=== PATIENT | male | born 1940 | race Caucasian/White ===

== ENCOUNTER 2019-06-10 09:28 | Outpatient (CLI) | payer MEDICARE, SELFPAY ==
--- NOTE | 2019-06-10 10:15 | MR_ITS ---
WS: [id number] MRI CERVICAL SPINE NONCONTRAST TECHNIQUE: Sagittal T1, T2 and STIR imaging. Axial T2, gradient, and fiesta imaging. CLINICAL INFORMATION: Neck pain COMPARISON: CT March 26, 2019 FINDINGS: Straightening of the normal cervical lordosis. Moderate spondylitic changes. Cord signal is normal. D isc osteophyte complexes worse at C4-C6. Mild degenerative edema at the right C1-2 articulation. Mild pannus formation at C1-2. C2-C3: Mild disc bulging with osteophytic ridging. Mild bilateral foraminal narrowing. Moderate right facet arthropathy. C3-C4: Disc osteophytic ridging. Mild to moderate left and no significant right foraminal narrowing. Spinal canal is patent. C4-C5: Disc osteophyte complex with endplate ridging. Mild central canal stenosis. Moderate right and mild left bony foraminal narrowing. Moderate facet arthropathy. C5-C6: Disc osteophyte complex with endplate ridging. Moderate left and no significant right foramina l narrowing. Mild facet arthropathy. C6-C7: Disc osteophyte complex with endplate ridging. Small central disc osteophyte protrusion. Mild central canal stenosis. Moderate to severe left and moderate right bony foraminal narrowing. C7-T1: Disc osteophyte complex with endplate ridging. Moderate to severe left and mild right bony for aminal narrowing. Spinal canal is patent. T1-T2: Small central protrusion with mild bilateral foraminal narrowing. Visualized brain stem structures: Normal. Prevertebral soft tissues: Normal. MR/MR cervical spin wo con* [id number] IMPRESSION: 1. Straightening of the normal cervical lordosis. Cord signal is normal. 2. Mild central canal stenosis with disc osteophyte protrusions at C4-C5, C5-C 6, and C6-C7. 3. Multilevel moderate to severe bony foraminal narrowing worse at right C4-5, left C5-6, left C6-7, and left C7-T1.
--- NOTE | 2019-06-10 11:00 | XR_ITS ---
WS: [id number] CERVICAL SPINE FLEXION EXTENSION TECHNIQUE: 3 views of the cervical spine: lateral neutral, flexion and extension views. CLINICAL INFORMATION: Neck pain COMPARISON: February 02, 2019 FINDINGS: Straightening of the normal cervical lordosis. Moderate spondylitic changes. Trace anterolisthesis C2 on C3 and C3 on C4. No instability on flexion-extension. Disc space narrowing worse at C3-C4 C4-C5 C 5-C6 and C6-C7. Normal prevertebral soft tissues. Normal C1-C2 articulation. Posterior elements are normal. No other significant findings. XR/XR cervical spine fl/ex [id number] IMPRESSION: No instability on flexion-extension
== END 2019-06-10 09:29 | disposition home or self-care (01) ==
LOC: RADWPI 09:31
PROVIDERS: Family Provider Family Medicine; PCP Family Medicine; Visit Provider Licensed Practical Nurse
DX: M48.02 Spinal stenosis, cervical region (principal); M50.223 Other cervical disc displacement at C6-C7 level
CPT/HCPCS: 72040; 72141

== ENCOUNTER → 2019-07-18 14:06 | Outpatient (BNVA) | payer MEDICARE, SELFPAY | PROVIDERS: Family Provider Family Medicine; PCP Family Medicine; Referring Provider Specialist; Visit Provider Anesthesiology Pain Medicine | DX: M47.812 Spondylosis without myelopathy or radiculopathy, cervical region (principal); M43.12 Spondylolisthesis, cervical region; M48.02 Spinal stenosis, cervical region; M50.020 Cervical disc disorder with myelopathy, mid-cervical region, unspecified level | CPT/HCPCS: 99204 ==

== ENCOUNTER → 2019-10-10 09:19 | Outpatient (BNVA) | payer MEDICARE, SELFPAY | PROVIDERS: Family Provider Family Medicine; PCP Family Medicine; Visit Provider Anesthesiology Pain Medicine | DX: M47.812 Spondylosis without myelopathy or radiculopathy, cervical region (principal); M43.12 Spondylolisthesis, cervical region; M48.02 Spinal stenosis, cervical region; M50.020 Cervical disc disorder with myelopathy, mid-cervical region, unspecified level | CPT/HCPCS: 64490; 64491; 64492; 99212; 99213; J3490 ==

== ENCOUNTER → 2019-10-24 11:05 | Outpatient (BNVA) | payer MEDICARE, SELFPAY | PROVIDERS: Family Provider Family Medicine; PCP Family Medicine; Visit Provider Anesthesiology Pain Medicine | DX: M43.12 Spondylolisthesis, cervical region (principal); M47.812 Spondylosis without myelopathy or radiculopathy, cervical region; M48.02 Spinal stenosis, cervical region; M50.020 Cervical disc disorder with myelopathy, mid-cervical region, unspecified level | CPT/HCPCS: 99212; 99213 ==

== ENCOUNTER → 2019-11-17 13:03 | Outpatient (BNVA) | payer MEDICARE, SELFPAY | PROVIDERS: Family Provider Family Medicine; PCP Family Medicine; Visit Provider Anesthesiology Pain Medicine | DX: M47.812 Spondylosis without myelopathy or radiculopathy, cervical region (principal); M54.2 Cervicalgia | CPT/HCPCS: 64633; 64634; J1030 ==

== ENCOUNTER → 2019-12-04 09:22 | Outpatient (BNVA) | payer MEDICARE, SELFPAY | PROVIDERS: Family Provider Family Medicine; PCP Family Medicine; Visit Provider Anesthesiology Pain Medicine | DX: G89.29 Other chronic pain (principal); M43.12 Spondylolisthesis, cervical region; M47.812 Spondylosis without myelopathy or radiculopathy, cervical region; M48.02 Spinal stenosis, cervical region; M50.020 Cervical disc disorder with myelopathy, mid-cervical region, unspecified level; M25.562 Pain in left knee; M25.561 Pain in right knee; M19.90 Unspecified osteoarthritis, unspecified site | CPT/HCPCS: 20610; 99213; J1030; J3490 ==

== ENCOUNTER → 2021-05-18 10:52 | Outpatient (BNVA) | payer MEDICARE, SELFPAY | PROVIDERS: Family Provider Family Medicine; PCP Family Medicine; Referring Provider Orthopaedic Surgery; Visit Provider Specialist | DX: G56.03 Carpal tunnel syndrome, bilateral upper limbs (principal) | CPT/HCPCS: 95909 ==

== ENCOUNTER → 2021-07-12 15:12 | Outpatient (BNVA) | payer MEDICARE, SELFPAY | PROVIDERS: Family Provider Family Medicine; PCP Family Medicine; Visit Provider Orthopaedic Surgery | DX: G56.03 Carpal tunnel syndrome, bilateral upper limbs (principal) | CPT/HCPCS: 99213; 99214 ==

== ENCOUNTER 2021-07-28 08:09 | Day surgery (SDC) | payer MEDICARE, SELFPAY ==
[2021-07-27 16:02] VITALS: BMI 24.7
[2021-07-28] VITALS (8 sets, daily range): BP systolic 124–158; BP diastolic 77–107; PULSE 51–66; RESP 14–20; TEMP 36.3–36.8; O2SAT 92–97
--- NOTE | 2021-07-28 09:21 | P.ANESASSM_ITS ---
Pre-Anesthetic Assessment Height/Weight: Height 1.75 m Weight 76.204 kg Temp Pulse Resp BP Pulse Ox 97.7 F 66 18 141/77 93 07/28/21 08:46 07/28/21 08:46 07/28/21 08:46 07/28/21 08:46 07/28/21 08:46 Preop Diagnosis: Carpal tunnel syndrome Right Operation Date: 07/28/21 10:45 Proposed Procedures p Right carpal tunnel release:79727,G56.01(Right) - Arnel Zavala MD Familial anesthetic complications: None Was Beta Zeus taken within 24 hours: N/A Was Clonidine taken within 24 hours: N/A Last intake: > 8hrs Social No alcohol and No tobacco Exam alert, oriented x 3, clear to auscultation bilaterally and regular rate & rhythm Airway Mallampati: Class II Dentition: false ( they're glued in real good ) Pulmonary None reported CV/HEM Hypertension None reported Hepatic None reported GI None reported Metabolic None reported Musc/skel Osteoarthritis/DJD Neuropsych None reported Anesthetic Plan ASA status: 2 Anesthesia: MAC and Regional (specify below) (loan block) Risk of > 500 ml blood loss (7ml/kg in children): No Medications/Allergies Home Medications Medication Instructions Recorded Confirmed Last Taken Type losartan 100 mg tablet 100 mg PO ONCE 02/25/19 07/27/21 07/27/21 History meloxicam 15 mg tablet 15 mg PO ONCE 02/25/19 07/27/21 07/28/21 07:00 History sertraline 100 mg tablet 100 mg PO Q24H 02/25/19 07/27/21 07/28/21 07:00 History ibuprofen 200 mg tablet 200 mg PO .4-8 day PRN tab 07/18/19 07/27/21 07/13/21 History vdebhvkdvrno-ddiogshe-ddqpyg tablet 1 tab PO DAILY 07/18/19 07/27/21 07/27/21 07:00 History vitamin b12 DIRECTED 07/18/19 07/12/21 Unknown History loperamide 2 mg capsule 2 mg PO PRN 07/27/21 07/27/21 07/27/21 07:00 History promethazine 25 mg tablet 25 mg PO PRN 07/27/21 07/27/21 07/24/21 History Allergies Allergy/AdvReac Type Severity Reaction Status Date / Time codeine Allergy Unknown diaphretic Verified 07/12/21 15:28 hydromorphone [From Dilaudid] Allergy Unknown rash Verified 07/12/21 15:28 Sulfa (Sulfonamide Allergy Unknown unknown Verified 07/12/21 15:28 Antibiotics) [facility] Anesthesia Medical History (Updated 07/12/21 @ 15:45 by Arnel Zavala MD) 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
[2021-07-28] MEDS: sodium chloride 0.9% 1,000 ML 30 ML IV (09:51)
--- NOTE | 2021-07-28 12:35 | W.PM.OPSUD ---
Surgery/Procedure H&P Update DATE OF PROCEDURE: July 28, 2021 DATE H&P PERFORMED: 07/12/21 H&P UPDATE INFORMATION: I have reviewed H&P completed within last 30 days PREOP DIAGNOSIS: Carpal tunnel syndrome Right PLANNED PROCEDURE: Operation Date: 07/28/21 10:45 Proposed Procedures p Right carpal tunnel release:[id number],G56.01(Right) - Arnel Zavala MD
--- NOTE | 2021-07-28 13:22 | P.OP_ITS ---
Operative Report Date of procedure: July 28, 2021 Pre-op diagnosis: Preop Diagnosis Carpal tunnel syndrome Right Post-op diagnosis: same Post-op diagnosis: Same Procedure done: Right carpal tunnel release Pathology: none sent Surgeon: Arnel Zavala Anesthesia: Nerve Block ([place]ocks block) Estimated blood loss (mL): 2 Tourniquet time (min): 20 Findings: No masses or space-occupying lesion seen in the right carpal tunnel Condition: stable Disposition: PACU Procedure: Patient was taken to the operating room and anesthesia provided by the anesthesia service. She was prepped and draped with the arm exposed. A timeout was performed. A 3 cm long incision was made in line with the fourth ray from the distal edge of the carpal tunnel extending proximally. The subcutaneous fat and palmar fascia was divided with a scalpel blade. Under loupe magnification the ulnar neurovascular bundle was identified distally. A hemostat could be passed under the transverse carpal ligament allowing the distal 25% to be divided. A slotted guide was then passed beneath the transverse carpal ligament and the middle 50% divided. Blunt scissors were then passed over the guide freeing the proximal ligament. The tourniquet was deflated. Hemostasis provided with electrocautery. Wound edges were infiltrated with 10 cc of a half percent Marcaine solution. Skin edges were reapproximated with 3-0 Prolene. Sterile dressings were applied. The patient was taken to the recovery room in stable condition
[2021-07-28] MEDS: HYDROcodone-acetaminophen 5-325 mg Tablet 1 TAB PO (15:20)
--- NOTE | 2021-07-28 16:35 | ANE.PACU2 ---
Inpatient post-anesthesia follow up: Airway intact: Yes Vital signs: Temperature 98.2 F Pulse Rate 58 Respiratory Rate 16 Blood Pressure 142/82 Pulse Oximetry 94 Oxygen Delivery Me thod Room Air Oxygen Flow Rate Fraction of Inspir ed Oxygen Hydration adequate: Yes Nausea and vomiting: No Pain level: 1 Mental status: Baseline
== END 2021-07-28 15:30 | disposition home or self-care (01) ==
PROVIDERS: Family Provider Family Medicine; PCP Family Medicine; Visit Provider Orthopaedic Surgery
PROC: (CPT 64721; principal; 2021-07-28 10:45)
DX: G56.01 Carpal tunnel syndrome, right upper limb (principal)
CPT/HCPCS: 64721; J2704; J3490; J7030

== ENCOUNTER → 2021-08-03 08:11 | Outpatient (BNVA) | payer MEDICARE, SELFPAY | PROVIDERS: Family Provider Family Medicine; PCP Family Medicine; Visit Provider Nurse Practitioner Family | DX: Z98.890 Other specified postprocedural states (principal) | CPT/HCPCS: 99024 ==

== ENCOUNTER → 2021-08-10 12:51 | Outpatient (BNVA) | payer MEDICARE, SELFPAY | PROVIDERS: Family Provider Family Medicine; PCP Family Medicine; Visit Provider Nurse Practitioner Family | DX: Z98.890 Other specified postprocedural states (principal) | CPT/HCPCS: 99024 ==

== ENCOUNTER → 2021-08-31 12:24 | Outpatient (BNVA) | payer MEDICARE, SELFPAY | PROVIDERS: Family Provider Family Medicine; PCP Family Medicine | DX: I45.2 Bifascicular block (principal); I25.2 Old myocardial infarction; R94.31 Abnormal electrocardiogram [ECG] [EKG] | CPT/HCPCS: 93005 ==

== ENCOUNTER 2021-09-19 14:44 | Outpatient (CLI) | payer MEDICARE, SELFPAY ==
--- NOTE | 2021-09-19 14:55 | USCV_ITS ---
Gurpreet Lang Age: 80 Gender: M : 1940 Exam Date: 09/19/2021 15:19 Ordering Phys: Brittany Phoenix CLIENT SERVER DEVELOPER CLIENT SERVER DEVELOPER Technologist: JUNIOR Exam Location[place] [facility] [place] Indication: sob, cp BP: 134 / 89 HR: 66 Rhythm: Sinus Technical Quality: adequate MEASUREMENTS (Male / Female) Normal Values 2D ECHO LV Diastolic Diameter PLAX 4.3 cm 4.2 - 5.9 / 3.9 - 5.3 cm LV Systolic Diameter PLAX 2.4 cm IVS Diastolic Thickness 1.0 cm 0.6 - 1.0 / 0.6 - 0.9 cm IVS Systolic Thickness 1.4 cm LVPW Diastolic Thickness 1.2 cm 0.6 - 1.0 / 0.6 - 0.9 cm LVPW Systolic Thickness 1.1 cm LVOT Diameter 2.0 cm LV Ejection Fraction 2D Teich 76.4 % LV Ejection Fraction MOD 2C 55.7 % LV Ejection Fraction 2C AL 57.4 % LA Diameter 3.7 cm RA Width 1.8 cm RA Height 5.3 cm Aorta at Sinotubular Diameter 3.2 cm M-MODE MV E Point Septal Separation 0.4 cm DOPPLER AV Peak Velocity 91.0 cm/s LVOT Peak Velocity 95.0 cm/s AV Area Cont Eq vti 3.6 cm squared AV Area Cont Eq pk 3.3 cm squared MV Area PHT 3.6 cm squared Mitral E to A Ratio 0.5 MV E' Velocity 28.5 cm/s Mitral E to MV E' Ratio 15.5 Mitral E to LV E' Lateral Ratio 16.9 Mitral E to LV E' Septal Ratio 14.3 TR Peak Velocity 243.3 cm/s TR Peak Gradient 23.7 mmHg Right Atrial Pressure 8.0 mmHg Pulmonary Artery Systolic Pressu 31.7 mmHg PV Peak Velocity 76.0 cm/s FINDINGS Left Ventricle Left ventricle is normal in size. LV systolic function is normal with EF 55 to 60%. No regional wall motion abnormalities are seen. Grade 1 diastolic dysfunction. Right Ventricle RV is normal in size or function Right Atrium Normal in size Left Atrium Normal in size Mitral Valve Structurally normal mitral valve. Mild mitral regurgitation. Aortic Valve Aortic valve is thickened. No significant stenosis is seen. Tricuspid Valve Mild tricuspid regurgitation. Normal pulmonary artery systolic pressure. Pulmonic Valve Not well-visualized. Pericardium Normal Aorta Normal in size IVC CONCLUSIONS LV systolic function is normal with EF of 55 to 60%. Grade 1 diastolic dysfunction. Mild mitral regurgitation. Mild tricuspid regurgitation. No comparison studies are available Arron Chase MD (Electronically Signed) Final Date: 24 September 2021 13:49 S
== END 2021-09-19 14:45 | disposition home or self-care (01) ==
LOC: RAD 14:44
PROVIDERS: Visit Provider Registered Nurse
DX: R07.9 Chest pain, unspecified (principal); I10 Essential (primary) hypertension; I08.1 Rheumatic disorders of both mitral and tricuspid valves
CPT/HCPCS: 93306

== ENCOUNTER 2021-09-21 07:11 | Outpatient (CLI) | payer MEDICARE, SELFPAY ==
--- NOTE | 2021-09-21 | ECG_ITS ---
[facility] Test Date: 2021-09-21 Pat Name: Gurpreet Lang Department: Room: Gender: Male Literary Writer: : 1940 Requested By: Brittany Phoenix Order Number: [id number] Sonia MD: Thi Engel M.D. Interpretive Statements NAME OF STUDY: LEXISCAN SESTAMIBI STRESS TEST INDICATION: Chest Pain PROCEDURE: At the baseline, the blood pressure was 98/77 mmHg with a heart rate of 62 bpm. The electrocardiogram showed sinus bradycardia, indeterminate axis. Right bundle branch block. The Lexiscan was infused over a period of 20 seconds. A total of 0.4 milligrams of Lexiscan was infused. The stress phase was continued for a total of 5 minutes. Heart rate at the end of the stress phase was 68 bpm with a blood pressure 116/85 mmHg. The EKG at the peak infusion revealed sinus rhythm with no significant ST-T wave changes. The study was terminated due to protocol completion. Sestamibi was injected 20 seconds after the Lexiscan infusion. Blood pressure at the end of the recovery phase was 134/84 mmHg with a heart rate of 68 beats per minute. CONCLUSION: 1. No significant EKG changes with the LexiScan infusion. 2. No LexiScan induced chest pain or cardiac arrhythmia. 3. Normal blood pressure and heart rate response. 4. Sestamibi/sestamibi perfusion scan pending; see separate report. Electronically Signed On 09-28-2021 16:53:08 CDT by Thi Engel M.D. [id number]
[2021-09-21 08:46] VITALS: BMI 28.8
--- NOTE | 2021-09-21 08:48 | NMCV_ITS ---
NM luis daniel perf SPECT r/s* [id number] Gurpreet Lang Age: 80 Gender: M : 1940 Exam Date: 09/21/2021 08:48 Ordering Phys: Brittany Phoenix MAINTAINER CENTRAL OFFICE Technologist: DUKE Ferrara Exam Location: [facility] Indications: CHEST PAIN STRESS TEST Please see separate stress test report [facility] for full findings IMAGE PROTOCOL Rest/Stress 1 Lexiscan Day Radiopharmaceutical Dose (mCi) Administration Site Administered by Rest: Tc-99m 11.0 IV DUKE Ferrara Sestamibi Stress:Tc-99m 32.7 IV DUKE Graham Sestamibi Rest: 21-Sep-2021 60 Discovery 630 Stress: 21-Sep-2021 30 Discovery 630 0.4mg Lexiscan. Images obtained in supine and prone position. SPECT RESULTS Technical Quality: Excellent Raw Data Analysis: Normal Image Corrections: No attenuation or motion correction applied Summed Stress Score: 16 Summed Rest Score: 13 Summed Difference Score: 3 PERFUSION FINDINGS Medium sized perfusion abnormality of basal to mid inferior, basal to mid inferolateral, apical lateral wall on rest images with mild reversibility in apical anterior and apical lateral bonilla on stress images. FUNCTIONAL RESULTS (calculated via Gated SPECT) Stress Image LV EF (%): 63 Stress EDV (mL):79 TID: 0.75 Stress ESV (mL):29 FUNCTIONAL FINDINGS: The left ventricle is normal in size. Transient Ischemia Dilatation of 0.75. There is normal left ventricular systolic function. The left ventricular ejection fraction is normal with a value of 63%. There is normal left ventricular wall thickening. Abnormal septal motion. Normal end-diastolic and end-systolic volumes. IMPRESSIONS 1. Medium sized perfusion abnormality of basal to mid inferior, basal to mid inferolateral, apical lateral bonilla with mild reversibility in apical anterior and apical lateral bonilla. 2. This is suggestive of old myocardial infarction in right coronary artery/circumflex artery territory with mild kwan-infarct ischemia. 3. Overall left ventricular systolic function is normal without regional wall motion abnormalities, LVEF=63%. 4. No EKG changes with Lexiscan infusion. Refer to separate report for details. Thi Engel MD (Electronically Signed) Final Date: 28 September 2021 17:03 S
[2021-09-21] MEDS: regadenoson 0.4 Mg/5 ml Syringe IVP (09:50)
[2021-09-21 09:59] VITALS: BP 134/84; PULSE 69
== END 2021-09-21 07:12 | disposition home or self-care (01) ==
LOC: CDL 07:12
PROVIDERS: Visit Provider Registered Nurse
DX: R07.9 Chest pain, unspecified (principal)
CPT/HCPCS: 78452; 93017; A9500; J2785

== ENCOUNTER → 2021-11-01 13:17 | Outpatient (BNVA) | payer MEDICARE, SELFPAY | PROVIDERS: PCP Family Medicine; Visit Provider Internal Medicine Cardiovascular Disease | DX: R07.9 Chest pain, unspecified (principal); R94.39 Abnormal result of other cardiovascular function study; I10 Essential (primary) hypertension; M19.90 Unspecified osteoarthritis, unspecified site; Z79.891 Long term (current) use of opiate analgesic; I25.2 Old myocardial infarction | CPT/HCPCS: 99204 ==

== ENCOUNTER → 2021-12-15 15:06 | Outpatient (BNVA) | payer MEDICARE, SELFPAY | PROVIDERS: PCP Family Medicine; Visit Provider Nurse Practitioner Family | DX: M17.0 Bilateral primary osteoarthritis of knee (principal) | CPT/HCPCS: 20610; 73560; 73565; 99214; J1100; J2795; J3301 ==

== ENCOUNTER 2022-01-24 16:58 | Inpatient (IN) | payer MEDICARE, SELFPAY ==
[2022-01-24] VITALS (26 sets, daily range): BP systolic 89–149; BP diastolic 64–80; PULSE 63–96; RESP 15–28; TEMP 36.3–36.8; O2SAT 92–98; BMI 27.3
--- NOTE | 2022-01-24 17:00 | ED_ITS ---
HPI - Chest Pain General: Chief Complaint: Chest Pain Stated Complaint: Chest Pain Time Seen by Provider: 01/24/22 16:59 History of Present Illness: Mr. Lang is an 81-year-old gentleman with significant past medical history of hypertension and history of WI presenting to the emergency department due to chest pain. He reports perhaps being mildly tired this morning however no other big changes in health. He was walking when he developed moderate intensity left anterior chest pressure without significant radiation. He had associated generalized malaise, diaphoresis, nausea. He was given nitroglycerin, nitroglycerin paste, aspirin, Zofran by EMS which has improved his pain to now being mild. He has not had episodes of chest pain since his prior WI. This feels similar but more intense to prior WI. No other specific changes in health, exacerbating, or alleviating factors identified. Onset (ago): hour(s) Timing of current episode: constant and still present Prior episodes: No Onset: during exertion Pain location: substernal Severity: moderate Quality: heaviness Relieving factors: nothing Exacerbating factors: exertion Associated symptoms: Reports diaphoresis, nausea and other Review of Systems General: Reports: 10 or more systems reviewed and unremarkable except in HPI and below Const: Reports: diaphoresis GI: Reports: nausea PFSH ED PFSH: Medical History Abnormal nuclear stress test CAD (coronary artery disease) Cervical disc disorder with myelopathy of mid-cervical region History of WI (myocardial infarction) HTN (hypertension) FPC (current) use of opiate analgesic Pain management contract signed 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 Surgical History History of appendectomy (~1974) History of cholecystectomy (~1979) History of rotator cuff surgery (~1996) Family History Father CAD (coronary artery disease) Myocardial infarction Other Hypertension Social History Smoking and tobacco status: never smoked Alcohol intake: never Household members: spouse Marital status: Current occupational status: retired History of recent travel: No Physical Exam Const: COMMON NORMALS: alert GENERAL APPEARANCE: cooperative and well developed HENMT: COMMON NORMALS: normocephalic and atraumatic HEAD & SCALP: normocephalic and atraumatic Eye: COMMON NORMALS: conjunctivae normal CONJUNCTIVA: Yes conjunctivae normal SCLERA: sclerae normal Neck/C-Spine: COMMON NORMALS: supple GENERAL: Yes trachea midline Resp: COMMON NORMALS: clear to auscultation bilaterally EFFORT & INSPECTION: Yes able to speak in complete sentences AUSCULTATION: clear to auscultation bilaterally Cardio: COMMON NORMALS: regular rate and regular rhythm RATE: regular rate RHYTHM: regular rhythm GI: COMMON NORMALS: Soft to palpation PALPATION: Yes Soft to palpation and No Tenderness to palpation present (GI) Extremity: GENERAL: Yes normal exam except as noted and No edema Neuro: COMMON NORMALS: moves all extremities SENSORIUM/ORIENTATION: Yes alert and No Orientation impaired Psych: COMMON NORMALS: mental status grossly normal and Normal thought process present THOUGHT PROCESS: Normal thought process present Course Vital Signs: Vital signs: Vital Signs Temperature 97.7 F 01/26/22 07:24 Pulse Rate 64 01/26/22 11:50 Respiratory Rate 22 H 01/26/22 11:50 Blood Pressure 125/75 01/26/22 11:50 Pulse Oximetry 91 01/26/22 11:50 Oxygen Delivery Me thod 01/26/22 08:00 MDM - Chest Pain Medical Decision Making 81-year-old male presenting with typical cardiac chest pain episode. Symptoms have improved upon arrival, end BOARDINGHOUSE KEEPER aspirin and nitro paste. EKG shows sinus rhythm with nonspecific ST segment abnormalities, bundle-branch block, no STEMI. Labs with no leukocytosis, normal hemoglobin. Metabolic panel with no acute electrolyte arrangement. 2-hour delta troponin is elevated. Rapid viral study negative. Chest x-ray with no lobar consolidation or pneumothorax. Most likely etiology of patient's symptoms is an NSTEMI The results of ED evaluation were discussed with the patient including plan for admission due to requirement for level of care not available if discharged to prevent significant worsening/deterioration. Patient agreeable with plan. Discussed with hospitalist service who was agreeable to admit patient. Medical Records I reviewed the patient's medical records. Lab Data I reviewed the patient's lab results. 01/26/22 08:14 01/26/22 08:14 Radiology Impressions Chest X-Ray 01/24/22 17:13 IMPRESSION: Left lower lobe atelectasis. Laboratory Results WBC 8.9 10^3/uL (4.0-10.0) 01/24/22 17:35 RBC 4.32 10^6/uL (4.1-5.3) 01/24/22 17:35 Hgb 14.1 g/dL (11.7-16.6) 01/24/22 17:35 Hct 41.8 % (42.0-52.0) L 01/24/22 17:35 MCV 96.8 fl (80-94) H 01/24/22 17:35 MCH 32.6 pg (28.0-34.0) 01/24/22 17: MCHC 33.7 g/dL (30.0-36.0) 01/24/22 17: RDW 12.7 % (12.1-15.1) 01/24/22 17:35 Plt Count 148 10^3/cmm (130-400) 01/24/22 17:35 MPV 9.7 fL (7.4-10.4) 01/24/22 17:35 Neut % (Auto) 83.9 % 01/24/22 17:35 Lymph % (Auto) 9.1 % 01/24/22 17:35 Roane % (Auto) 5.8 % 01/24/22 17:35 Eos % (Auto) 0.4 % 01/24/22 17:35 Baso % (Auto) 0.4 % 01/24/22 17:35 Neut # (Auto) 7.45 10^3/uL (1.8-7.7) 01/24/22 17:35 Lymph # (Auto) 0.8 10^3/uL (0.8-4.8) 01/24/22 17:35 [place]ane # (Auto) 0.5 10^3/uL (0.2-0.9) 01/24/22 17:35 Eos # (Auto) 0.0 10^3/uL (0.0-0.8) 01/24/22 17:35 Baso # (Auto) 0.0 10^3/uL (0.0-0.1) 01/24/22 17:35 Nucleated RBC % (auto) 0 % 01/24/22 17:35 Nucleated RBCs # 0.0 /100WBC 01/24/22 17:35 PT 15.20 SECONDS (12.1-14.9) H 01/24/22 17:35 INR 1.17 (0.8-1.2) 01/24/22 17:35 APTT 25.8 SECONDS (23.9-36.7) 01/24/22 17:35 Sodium 141 mmol/L (136-145) 01/24/22 17:35 Potassium 4.1 mmol/L (3.5-5.1) 01/24/22 17:35 Chloride 108 mmol/L (98-107) H 01/24/22 17:35 Carbon Dioxide 22 mmol/L (22-29) 01/24/22 17:35 Anion Gap 15.1 (5-19) 01/24/22 17:35 BUN 20 mg/dL (8-23) 01/24/22 17:35 Creatinine 1.2 mg/dL (0.7-1.2) 01/24/22 17:35 GFR Calculation Not Reportable 01/24/22 17:35 Glucose 235 mg/dL (65-115) H 01/24/22 17:35 Estimat Average Glucose 143 01/24/22 19:35 Hemoglobin A1c 6.6 % (4.0-6.0) H 01/24/22 19:35 Calculated Osmolality 302 mOsm/kg (285-295) H 01/24/22 17:35 Calcium 8.4 mg/dL (8.5-10.5) L 01/24/22 17:35 Total Bilirubin 0.6 mg/dL (0.15-1.2) 01/24/22 17:35 AST 22 U/L (0-40) 01/24/22 17:35 ALT 17 U/L (0-41) 01/24/22 17:35 Alkaline Phosphatase 72 U/L (40-130) 01/24/22 17:35 Troponin T Baseline 15 ng/L (0-15) 01/24/22 17:35 Troponin T 120 Minute 27.56 ng/L (0-15) H 01/24/22 19:35 Delta Troponin T 12.56 ABS# (0-10) H* 01/24/22 19:35 Troponin T Hi Sens 6Hr 35.17 ng/L (0-15) H 01/24/22 21:06 Troponin T Hi Sens 6Hr Delta 20.17 ng/L (0-12) H* 01/24/22 21:06 NT-Pro-B Natriuret Pep 387 pg/mL (0-450) 01/24/22 17:35 Total Protein 6.2 g/dL (6.6-8.7) L 01/24/22 17:35 Albumin 4.0 g/dL (3.5-5.2) 01/24/22 17:35 Globulin 2.2 g/dL (1.3-4.6) 01/24/22 17:35 Lipase 20 U/L (13-60) 01/24/22 17:35 Vitamin B12 > 2000 pg/mL (232-1245) H 01/24/22 19:35 TSH 2.24 uIU/mL (0.27-4.20) 01/24/22 19:35 Influenza Type A Ag negative (Negative) 01/24/22 17:54 Influenza Type B Ag negative (Negative) 01/24/22 17:54 SARS-CoV-2 Ag (Rapid) Negative (Negative) 01/24/22 17:54 Discharge Plan Discharge Patient Disposition: Admitted As Inpatient Admit Provider: Shonna Wilder Clinical Impression: Chest pain, Acute non-ST elevation myocardial infarction (NSTEMI) Condition: Stable Discharge Diet: Usual diet Discharge Activity: Resume usual activity Coding Level of Care Code ED Finished Garment Inspector for Abdi Dawson
--- NOTE | 2022-01-24 17:08 | ECG_ITS ---
[facility] Test Date: 2022-01-24 Pat Name: Gurpreet Lang Department: Room: Gender: Male Parts Runner: : 1940 Requested By: Noah Ernst Order Number: [id number] Sonia MD: Saloni Hoyt M.D. Measurements Intervals [place] Rate: 98 P: 48 MD: 160 QRS: 263 QRSD: 142 T: 17 QT: 373 QTc: 476 Interpretive Statements SINUS RHYTHM INDETERMINATE AXIS RIGHT BUNDLE BRANCH BLOCK [120+ ms QRS DURATION, UPRIGHT V1, 40+ ms S IN I/aVL/V4/V5/V6] No previous ECG available for comparison Electronically Signed On 01-25-2022 0:04:52 POWERHOUSE OPERATOR by Saloni Hoyt M.D. [id number]
--- NOTE | 2022-01-24 17:13 | XRR_ITS ---
PROCEDURE INFORMATION: Exam: XR Chest Exam date and time: 01/24/2022 5:41 PM Age: 81 years old Clinical indication: Chest wall pain; Additional info: Cp TECHNIQUE: Imaging protocol: Radiologic exam of the chest. Views: 1 view. COMPARISON: MR cervical spin wo con* [id number] 06/10/2019 9:58 AM FINDINGS: Lungs: Left lower lobe atelectasis. Pleural spaces: Unremarkable. No pleural effusion. No pneumothorax. Heart/Mediastinum: Unremarkable. No cardiomegaly. Bones/joints: Unremarkable. XR/XR chest 1V portable [id number] IMPRESSION: Left lower lobe atelectasis.
[2022-01-24 17:47] LABS: Basophils % 0.4 %; Eosinophils % 0.4 %; Hematocrit 41.8 % (42.0-52.0); Hemoglobin 14.1 g/dL (11.7-16.6); Lymphocytes # 0.8 10^3/uL (0.8-4.8); Lymphocytes % 9.1 %; Mean Corpuscular HGB Conc 33.7 g/dL (30.0-36.0); Mean Corpuscular Hemoglobin 32.6 pg (28.0-34.0); Mean Corpuscular Volume 96.8 fl (80-94); Mean Platelet Volume 9.7 fL (7.4-10.4); Monocytes # 0.5 10^3/uL (0.2-0.9); Monocytes % 5.8 %; Neutrophils # 7.45 10^3/uL (1.8-7.7); Neutrophils % 83.9 %; Nucleated Red Blood Cells % 0 %; Platelet Count 148 10^3/cmm (130-400); Red Blood Count 4.32 10^6/uL (4.1-5.3); Red Cell Distribution Width 12.7 % (12.1-15.1); White Blood Count 8.9 10^3/uL (4.0-10.0)
[2022-01-24 18:22] LABS: INR 1.17 (0.8-1.2); Partial Thromboplastin Time 25.8 SECONDS (23.9-36.7)
[2022-01-24 18:24] LABS: Influenza A by IFA negative (Negative); Influenza B by IFA negative (Negative)
[2022-01-24 18:28] LABS: Troponin(5th) Baseline 15 ng/L (0-15)
[2022-01-24 18:37] LABS: Alanine Aminotransferase 17 U/L (0-41); Alkaline Phosphatase 72 U/L (40-130); Anion Gap 15.1 (5-19); Aspartate Amino Transferase 22 U/L (0-40); Blood Urea Nitrogen 20 mg/dL (8-23); Calcium 8.4 mg/dL (8.5-10.5); Carbon Dioxide 22 mmol/L (22-29); Chloride 108 mmol/L (98-107); Creatinine Clr Calc Pharmacy 51.1797; Globulin 2.2 g/dL (1.3-4.6); Glucose 235 mg/dL (65-115); Lipase 20 U/L (13-60); NT Pro B Type Natriuretic Pept 387 pg/mL (0-450); Osmolality Calculated 302 mOsm/kg (285-295); Potassium 4.1 mmol/L (3.5-5.1); Sodium 141 mmol/L (136-145); Total Bilirubin 0.6 mg/dL (0.15-1.2); Total Protein 6.2 g/dL (6.6-8.7)
[2022-01-24 19:00] LABS: SARS Covid-2 Antigen Negative (Negative)
--- NOTE | 2022-01-24 19:13 | ECG_ITS ---
[facility] Test Date: 2022-01-24 Pat Name: Gurpreet Lang Department: Room: Gender: Male Newspaper Copy Editor: : 1940 Requested By: Noah Ernst Order Number: [id number] Sonia MD: Saloni oHyt M.D. Measurements Intervals [place] Rate: 92 P: 51 NC: 169 QRS: 242 QRSD: 145 T: 0 QT: 376 QTc: 466 Interpretive Statements SINUS RHYTHM RIGHT AXIS DEVIATION [QRS AXIS > 100] RIGHT BUNDLE BRANCH BLOCK [120+ ms QRS DURATION, UPRIGHT V1, 40+ ms S IN I/aVL/V4/V5/V6] PROBABLE SEPTAL MYOCARDIAL INFARCTION , PROBABLY OLD [35 ms Q WAVE IN V1/V2] Compared to ECG 01/24/2022 17:08:41 Right-axis deviation now present Myocardial infarct finding now present Indeterminate axis no longer present Electronically Signed On 01-25-2022 18:20:02 HEALTH INSPECTOR by Saloni Hoyt M.D. [id number]
[2022-01-24 20:06] LABS: Troponin 5 2HR 27.56 ng/L (0-15)
[2022-01-24 20:09] LABS: Troponin 5 2HR Delta 12.56 ABS# (0-10)
[2022-01-24] MEDS: enoxaparin 80 mg/0.8 mL Syringe SUBCUT (20:44)
[2022-01-24] MEDS: sodium chloride 0.9% 500 ML 999 ML IV (20:54)
[2022-01-24] MEDS: clopidogrel 300 mg Tablet PO (21:28)
[2022-01-24 21:31] LABS: Troponin 5 6HR 35.17 ng/L (0-15)
[2022-01-24 21:33] LABS: Troponin 5 6HR Delta 20.17 ng/L (0-12)
--- NOTE | 2022-01-24 21:35 | P.HP_ITS ---
Providers/Chief Complaint Primary Care Provider: Augustina Lopez DO Chief Complaint: Chest Pain History of Present Illness Gurpreet Lang is a 81 year old male presents today with chief complaint of chest pain. Patient is stating that today he drove his to her doctor's appointment and when he came home he wanted to rest a bit at that point he started noticing profuse sweating and chest discomfort. He is describing his chest discomfort as stabbing pain which is nonradiating it was associated with diaphoresis and nausea. This pain was steady, did not completely resolve until he was treated in the ER. His symptoms started around 3 PM. Patient follows up with Dr. Moss, had a stress test done in September, he was being managed medically for his slightly abnormal cardiac stress test, echo showed EF 55 to 60% grade 1 diastolic dysfunction, please note his stress test showed medium sized perfusion abnormality basal to mid inferior basal to mid inferior lateral with reversibility and apical lateral bonilla. In the ER he has been diagnosed with NSTEMI, he has been started on ACS protocol at the time of my evaluation no active chest pain he is laying flat, supine no active discomfort He has been giving therapeutic dose of Plavix along with Lovenox and received a small bolus of LR 500 mL Review of Systems Const: Denies: fever(s) Eyes: Denies: change in vision ENMT: Denies: throat pain Card: Reports: chest pain Resp: Reports: dyspnea GI: Reports: nausea : Denies: flank pain Musc: Denies: neck pain Skin/Breast: Denies: rash Neuro: Denies: headache(s) Psych: Reports: anxiety Endo: Denies: polyuria Alexei/Lymph: Denies: easy bruising All/Imm: Denies: urticaria Medications/Allergies Home Medications Medication Instructions Recorded Confirmed Last Taken Type ibuprofen 200 mg tablet 200 mg PO .4-8 day PRN Pain, Mild 07/18/19 01/24/22 07/13/21 History kuzxblipfmgc-qyshyoqa-rwpstb tablet 1 tab PO DAILY 07/18/19 01/24/22 01/24/22 History loperamide 2 mg capsule 2 mg PO PRN 07/27/21 01/24/22 01/24/22 History promethazine 25 mg tablet 25 mg PO PRN 07/27/21 01/24/22 07/24/21 History amlodipine 5 mg tablet 5 mg PO DAILY #90 tabs 11/01/21 01/24/22 01/24/22 Rx aspirin 325 mg tablet 325 mg PO DAILY 11/01/21 01/24/22 01/24/22 History hydrocodone 5 mg-acetaminophen 325 1 tab PO Q4H PRN Pain 11/01/21 01/24/22 Unknown History mg tablet losartan 50 mg tablet 50 mg PO DAILY #90 tabs 11/01/21 01/24/22 01/24/22 Rx meloxicam 15 mg tablet 15 mg PO DAILY 11/01/21 01/24/22 01/24/22 History pravastatin 20 mg tablet 20 mg PO DAILY #90 tabs 11/01/21 01/24/22 01/23/22 Rx sertraline 100 mg tablet 100 mg PO DAILY 11/01/21 01/24/22 01/23/22 History cyanocobalamin (vitamin B-12) 250 250 mcg PO DAILY 01/24/22 01/24/22 01/24/22 History mcg tablet (Vitamin B-12) levothyroxine 25 mcg tablet 25 mcg PO DAILY 01/24/22 01/24/22 01/24/22 History Allergies Allergy/AdvReac Type Severity Reaction Status Date / Time codeine Allergy Unknown diaphretic Verified 12/15/21 15:02 hydromorphone [From Dilaudid] Allergy Unknown rash Verified 12/15/21 15:02 Sulfa (Sulfonamide Allergy Unknown unknown Verified 12/15/21 15:02 Antibiotics) PFSH Acute PFSH: Medical History Abnormal nuclear stress test Cervical disc disorder with myelopathy of mid-cervical region History of OR (myocardial infarction) HTN (hypertension) tank terminal gauger (current) use of opiate analgesic Pain management contract signed 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 Surgical History History of appendectomy (~1974) History of cholecystectomy (~1979) History of rotator cuff surgery (~1996) Family History Father CAD (coronary artery disease) Myocardial infarction Other Hypertension Social History Smoking and tobacco status: never smoked Alcohol intake: never Household members: spouse Marital status: Current occupational status: retired History of recent travel: No Vitals/I&O/Wt Last Vital Signs Temp 98.2 F 01/24/22 16:59 Pulse 93 01/24/22 21:04 Resp 18 01/24/22 21:04 BP 89/66 01/24/22 21:04 Pulse Ox 94 01/24/22 21:04 O2 Del Method 01/24/22 16:59 Weight last 48 hrs Weight 81.647 kg Physical Exam Narrative: Patient is awake and alert Supine Akathisia Hemodynamically stable Clinically euvolemic S1, S2 Currently on room air No active chest pain Nonfocal neuro exam No skin ulcers Appropriate mood and affect Appears stated age Data 01/24/22 17:35 01/24/22 17:35 A&P Assessment and plan (1) Acute non-ST elevation myocardial infarction (NSTEMI): (2) HTN (hypertension): (3) Abnormal nuclear stress test: (4) Akathisia: Plan NSTEMI This year had abnormal stress test as well Most likely he will need a coronary angiogram Dr. Diaz has been consulted Delta troponin noted No active chest pain Start ACS protocol Plavix and Lovenox dose has been administered continue aspirin, atorvastatin and GAYE inhibitor Repeat echo Hypertension: Continued evidence of regimen Continue thyroxine for history of hypothyroidism For shortness of breath I would use DuoNeb for as needed use Patient is DNR/DNI goals of care discussed with the patient We will keep him n.p.o. after midnight Attestations Medical Necessity Statement*: Anticipating more than 2 midnights for management of NSTEMI Time Spent in Patient Care: 40 Coding Level of Care Code Acute Manager Transportation Planning for Abdi Fwsanthosh Diagnoses Acute non-ST elevation myocardial infarction (NSTEMI) I21.4 HTN (hypertension) I10 Abnormal nuclear stress test R94.39 Akathisia G25.71
--- NOTE | 2022-01-24 22:04 | PC.NURSE ---
report given to mike
--- NOTE | 2022-01-24 22:13 | USCV_ITS ---
Gurpreet Lang Age: 81 Gender: M : 1940 Exam Date: 01/24/2022 22:41 Ordering Phys: Shonna Wilder MD Technologist: MARILYNN Exam Location: [facility] [place] Indication: NSTEMI, CP, HTN, prior CT, prior echo 09/19/21 BP: 128 / 78 HR: 69 Rhythm: Sinus Technical Quality: Adequate MEASUREMENTS (Male / Female) Normal Values 2D ECHO LV Diastolic Diameter PLAX 4.3 cm 4.2 - 5.9 / 3.9 - 5.3 cm LV Systolic Diameter PLAX 2.9 cm IVS Diastolic Thickness 1.7 cm 0.6 - 1.0 / 0.6 - 0.9 cm IVS Systolic Thickness 2.0 cm LVPW Diastolic Thickness 0.9 cm 0.6 - 1.0 / 0.6 - 0.9 cm LVPW Systolic Thickness 1.0 cm LVOT Diameter 2.0 cm LV Ejection Fraction 2D Teich 60.4 % LV Ejection Fraction MOD 2C 58.8 % LV Ejection Fraction 2C AL 60.2 % LA Diameter 3.8 cm LA Width 3.5 cm LA Height 5.5 cm RA Width 2.2 cm RA Height 4.9 cm Aorta at Sinotubular Diameter 3.4 cm IVC Diameter 1.3 cm M-MODE Aortic Annulus Diameter 3.8 cm LA Ao Ratio MM 0.9 MV E Point Septal Separation 0.4 cm DOPPLER AV Peak Velocity 123.0 cm/s LVOT Peak Velocity 113.0 cm/s AV Area Cont Eq vti 2.5 cm squared AV Area Cont Eq pk 2.9 cm squared MV Peak Velocity 125.0 cm/s MV Area PHT 4.1 cm squared Mitral E to A Ratio 0.7 MV E' Velocity 41.5 cm/s Mitral E to MV E' Ratio 11.6 Mitral E to LV E' Lateral Ratio 9.5 Mitral E to LV E' Septal Ratio 15.1 TR Peak Velocity 261.0 cm/s TR Peak Gradient 27.2 mmHg TV Peak E Velocity 50.0 cm/s Right Atrial Pressure 5.0 mmHg Pulmonary Artery Systolic Pressu 32.2 mmHg PV Peak Velocity 98.0 cm/s RV Acceleration Time 0.1 s RV Ejection Time 0.3 s RV AcT/ET 0.3 FINDINGS Left Ventricle Normal LV size ejection fraction 60%. Mild hypokinesis of the basal to mid inferolateral segment.Grade I/IV diastolic dysfunction (abnormal relaxation filling pattern), normal to mildly elevated filling pressures. Mild left ventricular hypertrophy. Right Ventricle The right ventricle is normal in size and function. Right Atrium The right atrium is normal in size. Left Atrium The left atrium is normal in size. Mitral Valve Thickened mitral valve. Grade 1 bileaflet prolapse.mild- moderate mitral valve regurgitation. Aortic Valve Thickened aortic valve. Tricuspid Valve Mild tricuspid valve regurgitation. Pulmonic Valve Trace pulmonary valve regurgitation. Pericardium Normal pericardium without effusion. Aorta Normal ascending aorta dimension. IVC Normal inferior vena cava. CONCLUSIONS Normal LV size ejection fraction 60%. Wall motion abnormality as mentioned above Grade I/IV diastolic dysfunction (abnormal relaxation filling pattern), normal to mildly elevated filling pressures. Mild left ventricular hypertrophy. Minimally thickened aortic and mitral valves. 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 Mild to moderate mitral regurgitationMild tricuspid valve regurgitation. There is no pericardial effusion. There are no intracardiac masses. Estimated pulmonary artery peak systolic pressure 33 mm of Hg. Compared to the study from 09/19/2021, there may not be a significant change Dr Saloni Hoyt MD [facility] (Electronically Signed) Final Date: 25 January 2022 13:56 S
--- NOTE | 2022-01-24 22:38 | P.CONIM_ITS ---
Providers/Reason For Consult Consulting Physician/Specialty*: ALPHONSO Hoyt MD/cardiology Reason for Consult*: Patient with chest pain and elevated troponin T Requesting Physician: Dr. Wilder Attending Physician: Shonna Wilder MD Primary Care Provider: Augustina Lopez DO History of Present Illness History of Present Illness Gurpreet Lang is a 81 year old male with a history of hypertension,? Dyslipidemia and abnormal stress test, he is presenting with complaints of a prolonged episode of chest pain. He was found to have an elevated troponin T. Cardiology consult is requested for further cardiac evaluation recommendations. This patient apparently has been in his baseline state of health up until 3:00 this afternoon when he started having chest pain. The pain was in the mid substernal region, associated with some shortness of breath, nausea and sweating. It was precipitated with exertion(walking), 5/10 in intensity. It may have lasted for 15 minutes or so. His called the ambulance at that point. In the ambulance he was given 3 of 4 sublingual nitroglycerin spray. He also was given Zofran for nausea. By the time he came to the emergency room, the intensity of the pain was 2/10. At the time of my examination, patient is pain-free. He had a troponin delta of 12 at 2 hours. Patient had a Myocardial perfusion imaging September of this year. He was found to have an area of mild ischemia in the apical anterior and anterolateral regions. The plan was to optimize medical treatment and to consider cardiac catheterization, if he has recurrence of chest pain. Apparently this is the first episode of chest pain since the stress test. Patient is known to have high blood pressure. He was recently started on lipid- lowering agent, following the abnormal stress test. His father had a myocardial infarction in his 70s. He denies any history of smoking abuse or any other substance abuse. Is known to have irritable bowel syndrome, restless leg and cervical myelopathy Review of Systems Narrative: CONSTITUTIONAL: No fever or chills. EYES: No blurring of vision or other visual disturbances lately. ENT: No hoarseness of voice, auditory disturbances or sore throat. CARDIOVASCULAR: As mentioned above. RESPIRATORY: No significant cough. GASTROINTESTINAL: Irritable bowel syndrome as mentioned above GENITOURINARY: No dysuria or hematuria. INTEGUMENTARY: No skin rashes or history of skin cancer. NEURO: Recent radiofrequency ablation for cervical myelopathy PSYCHIATRIC: No history of psychosis or major depression. HEMATOLOGIC: No bleeding disorders or significant anemia. ENDOCRINE: No history of polyuria or polydipsia. MUSCULOSKELETAL: No recent joint pain or swelling. ALLERGY/IMMUNOLOGY: As mentioned above. Medications/Allergies Home Medications Medication Instructions Recorded Confirmed Last Taken Type ibuprofen 200 mg tablet 200 mg PO .4-8 day PRN Pain, Mild 07/18/19 01/24/22 07/13/21 History stlhjdpzvicj-ojsirmlu-etvrrt tablet 1 tab PO DAILY 07/18/19 01/24/22 01/24/22 History loperamide 2 mg capsule 2 mg PO PRN 07/27/21 01/24/22 01/24/22 History promethazine 25 mg tablet 25 mg PO PRN 07/27/21 01/24/22 07/24/21 History amlodipine 5 mg tablet 5 mg PO DAILY #90 tabs 11/01/21 01/24/22 01/24/22 Rx aspirin 325 mg tablet 325 mg PO DAILY 11/01/21 01/24/22 01/24/22 History hydrocodone 5 mg-acetaminophen 325 1 tab PO Q4H PRN Pain 11/01/21 01/24/22 Unknown History mg tablet losartan 50 mg tablet 50 mg PO DAILY #90 tabs 11/01/21 01/24/22 01/24/22 Rx meloxicam 15 mg tablet 15 mg PO DAILY 11/01/21 01/24/22 01/24/22 History pravastatin 20 mg tablet 20 mg PO DAILY #90 tabs 11/01/21 01/24/22 01/23/22 Rx sertraline 100 mg tablet 100 mg PO DAILY 11/01/21 01/24/22 01/23/22 History cyanocobalamin (vitamin B-12) 250 250 mcg PO DAILY 01/24/22 01/24/22 01/24/22 History mcg tablet (Vitamin B-12) levothyroxine 25 mcg tablet 25 mcg PO DAILY 01/24/22 01/24/22 01/24/22 History Allergies Allergy/AdvReac Type Severity Reaction Status Date / Time codeine Allergy Unknown diaphretic Verified 12/15/21 15:02 hydromorphone [From Dilaudid] Allergy Unknown rash Verified 12/15/21 15:02 Sulfa (Sulfonamide Allergy Unknown unknown Verified 12/15/21 15:02 Antibiotics) PFSH Acute PFSH: Medical History Abnormal nuclear stress test Cervical disc disorder with myelopathy of mid-cervical region History of SD (myocardial infarction) HTN (hypertension) nursing home (current) use of opiate analgesic Pain management contract signed 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 Surgical History History of appendectomy (~1974) History of cholecystectomy (~1979) History of rotator cuff surgery (~1996) Family History Father CAD (coronary artery disease) Myocardial infarction Other Hypertension Social History Smoking and tobacco status: never smoked Alcohol intake: never Household members: spouse Marital status: Current occupational status: retired History of recent travel: No Vitals/I&O/Wt Last Vital Signs Temp 98.2 F 01/24/22 16:59 Pulse 93 01/24/22 21:04 Resp 18 01/24/22 21:04 BP 89/66 01/24/22 21:04 Pulse Ox 94 01/24/22 21:04 O2 Del Method 01/24/22 22:19 Weight last 48 hrs Weight 180 lb Physical Exam Narrative: GENERAL: The patient is alert and oriented times three. Not in any acute distress. HEENT: No significant pallor, icterus or lymphadenopathy.Oral cavity: There are no mucous membrane lesions. NECK: Trachea appears to be central. No masses noted. No JVD or thyromegaly appreciated. RESPIRATORY: Chest is symmetrical. No intercostals muscle retraction or any accessory muscle activation. There is no chest wall tenderness. Breath sounds are heard bilaterally. No rales or rhonchi heard. No evidence of any consolidation. BREASTS: Deferred. HEART: The heart sounds are normal. No S3 , S4 present. Short systolic murmur in the lower sternal border. No diastolic murmurs. No pericardial rub ABDOMEN: No vessel pulsations or distention. No tenderness. No organomegaly appreciated. Bowel sounds are normally heard. : Deferred. RECTAL: Deferred. LYMPHATIC: No lymphadenopathy noted in the neck. EXTREMITIES: No edema or cyanosis. No clubbing. MUSCULOSKELETAL: No acute joint deformities or swelling SKIN: There are no significant rashes or ecchymosis NEUROPSYCHIATRIC: The patient is alert and oriented x3. Appears to be in a good mood. No tremors or rigidity noted. Data 01/24/22 17:35 01/24/22 17:35 Micro: Laboratory Last Values WBC 8.9 10^3/uL (4.0-10.0) 01/24/22 17:35 RBC 4.32 10^6/uL (4.1-5.3) 01/24/22 17:35 Hgb 14.1 g/dL (11.7-16.6) 01/24/22 17:35 Hct 41.8 % (42.0-52.0) L 01/24/22 17:35 MCV 96.8 fl (80-94) H 01/24/22 17:35 MCH 32.6 pg (28.0-34.0) 01/24/22 17:35 MCHC 33.7 g/dL (30.0-36.0) 01/24/22 17:35 RDW 12.7 % (12.1-15.1) 01/24/22 17:35 Plt Count 148 10^3/cmm (130-400) 01/24/22 17:35 MPV 9.7 fL (7.4-10.4) 01/24/22 17:35 Neut % (Auto) 83.9 % 01/24/22 17:35 Lymph % (Auto) 9.1 % 01/24/22 17:35 [place] % (Auto) 5.8 % 01/24/22 17:35 Eos % (Auto) 0.4 % 01/24/22 17:35 Baso % (Auto) 0.4 % 01/24/22 17:35 Neut # (Auto) 7.45 10^3/uL (1.8-7.7) 01/24/22 17:35 Lymph # (Auto) 0.8 10^3/uL (0.8-4.8) 01/24/22 17:35 [place] # (Auto) 0.5 10^3/uL (0.2-0.9) 01/24/22 17:35 Eos # (Auto) 0.0 10^3/uL (0.0-0.8) 01/24/22 17:35 Baso # (Auto) 0.0 10^3/uL (0.0-0.1) 01/24/22 17:35 Nucleated RBC % (auto) 0 % 01/24/22 17:35 Nucleated RBCs # 0.0 /100WBC 01/24/22 17:35 PT 15.20 SECONDS (12.1-14.9) H 01/24/22 17:35 INR 1.17 (0.8-1.2) 01/24/22 17:35 APTT 25.8 SECONDS (23.9-36.7) 01/24/22 17:35 Sodium 141 mmol/L (136-145) 01/24/22 17:35 Potassium 4.1 mmol/L (3.5-5.1) 01/24/22 17:35 Chloride 108 mmol/L (98-107) H 01/24/22 17:35 Carbon Dioxide 22 mmol/L (22-29) 01/24/22 17:35 Anion Gap 15.1 (5-19) 01/24/22 17:35 BUN 20 mg/dL (8-23) 01/24/22 17:35 Creatinine 1.2 mg/dL (0.7-1.2) 01/24/22 17:35 GFR Calculation Not Reportable 01/24/22 17:35 Glucose 235 mg/dL (65-115) H 01/24/22 17:35 Calculated Osmolality 302 mOsm/kg (285-295) H 01/24/22 17:35 Calcium 8.4 mg/dL (8.5-10.5) L 01/24/22 17:35 Total Bilirubin 0.6 mg/dL (0.15-1.2) 01/24/22 17:35 AST 22 U/L (0-40) 01/24/22 17:35 ALT 17 U/L (0-41) 01/24/22 17:35 Alkaline Phosphatase 72 U/L (40-130) 01/24/22 17:35 Troponin T Baseline 15 ng/L (0-15) 01/24/22 17:35 Troponin T 120 Minute 27.56 ng/L (0-15) H 01/24/22 19:35 Delta Troponin T 12.56 ABS# (0-10) H* 01/24/22 19:35 Troponin T Hi Sens 6Hr 35.17 ng/L (0-15) H 01/24/22 21:06 Troponin T Hi Sens 6Hr Delta 20.17 ng/L (0-12) H* 01/24/22 21:06 NT-Pro-B Natriuret Pep 387 pg/mL (0-450) 01/24/22 17:35 Total Protein 6.2 g/dL (6.6-8.7) L 01/24/22 17:35 Albumin 4.0 g/dL (3.5-5.2) 01/24/22 17:35 Globulin 2.2 g/dL (1.3-4.6) 01/24/22 17:35 Lipase 20 U/L (13-60) 01/24/22 17:35 Influenza Type A Ag negative (Negative) 01/24/22 17:54 Influenza Type B Ag negative (Negative) 01/24/22 17:54 SARS-CoV-2 Ag (Rapid) Negative (Negative) 01/24/22 17:54 EKG 1: My Interpretation: The EKG showed a sinus rhythm with right bundle branch block pattern. Possible old inferior wall SD. Right axis deviation EKG computer-generated impression: Chest X-Ray 01/24/22 17:13 IMPRESSION: Left lower lobe atelectasis. Other data: Bedside echocardiogram today revealed moderate hypokinesia of the basal inferolateral segment. Normal LV ejection fraction Sestamibi stress test done on 09/21/2021-reported as 1. No significant EKG changes with the LexiScan infusion. 2. No LexiScan induced chest pain or cardiac arrhythmia. 3. Normal blood pressure and heart rate response. 4. Sestamibi/sestamibi perfusion scan pending; see separate report. Electronically Signed On 09-28-2021 16:53:08 CDT by Thi Engel M.D. Myocardial perfusion imaging done on 09/21/2021-reported as ?1. Medium sized perfusion abnormality of basal to mid inferior, basal to mid ?inferolateral, apical lateral bonilla with mild reversibility in apical anterior?and apical lateral bonilla. ?2. This is suggestive of old myocardial infarction in right coronary?artery/circumflex artery territory with mild kwan-infarct ischemia. ?3. Overall left ventricular systolic function is normal without regional wall?motion abnormalities, LVEF=63%. ?4. No EKG changes with Lexiscan infusion.? Refer to separate report for?details. ?Thi Engel MD? ?(Electronically Signed) Echocardiogram done on 09/19/2021-reported as ? ?LV systolic function is normal with EF of 55 to 60%. ?Grade 1 diastolic dysfunction. ?Mild mitral regurgitation. ?Mild tricuspid regurgitation. ?No comparison studies are available ?Arron Chase MD? ?(Electronically Signed) A&P Assessment and plan (1) Atherosclerotic heart disease of [place] coronary artery with unstable angina pectoris: Patient is her clinical features are consistent with unstable angina, complicated with non-ST elevation myocardial infarction. He is hemodynamically stable. May be treated with topical nitrates, beta-priscila, subcu Lovenox, aspirin and Plavix (2) Acute non-ST elevation myocardial infarction (NSTEMI): Patient may be started on Plavix 300 mg p.o. now followed by 75 mg p.o. daily. He need to be closely monitored on telemetry. (3) Benign essential hypertension with target blood pressure below 140/90: Currently he is normotensive. May continue on the current medication. (4) Dyslipidemia: May discontinue the pravastatin. Start him on Lipitor 40 mg now and daily Plan I will review the echocardiogram, which is already ordered. For further evaluation of his coronary status, he may benefit from an early cardiac catheterization. We will keep him n.p.o. after midnight. Patient will be reevaluated by Dr. Engel in the morning. A final decision will be made afterwards. Thank for the opportunity to evaluate this patient and make these recommendations Consult Attestations Medical Necessity Statement: Patient requires continued hospital stay for close monitoring and further management Coding Level of Care Code Acute Pattern Duplicator for Chg Fwd History Expanded Problem Focused Exam Detailed Medical Decision Making High Complexity Diagnoses Atherosclerotic heart disease of [place] coronary artery with unstable angina pectoris I25.110 Acute non-ST elevation myocardial infarction (NSTEMI) I21.4 Benign essential hypertension with target blood pressure below 140/90 I10 Dyslipidemia E78.5
[2022-01-24 23:02] LABS: Estmated Average Glucose 143; Hemoglobin A1C 6.6 % (4.0-6.0)
--- NOTE | 2022-01-24 23:38 | ECG_ITS ---
[facility] Test Date: 2022-01-24 Pat Name: Gurpreet Lang Department: Room: 111 Gender: Male Prompt Care Rn: : 1940 Requested By: Noah Ernst Order Number: [id number] Sonia MD: Saloni Hoyt M.D. Measurements Intervals [place] Rate: 76 P: 32 NE: 156 QRS: 67 QRSD: 145 T: 36 QT: 400 QTc: 452 Interpretive Statements SINUS RHYTHM WITH OCCASIONAL VENTRICULAR PREMATURE COMPLEXES POSSIBLE LEFT ATRIAL ENLARGEMENT [-0.1mV P-WAVE IN V1/V2] INDETERMINATE AXIS RIGHT BUNDLE BRANCH BLOCK [120+ ms QRS DURATION, UPRIGHT V1, 40+ ms S IN I/aVL/V4/V5/V6] Compared to ECG 01/24/2022 20:41:15 Ventricular premature complex(es) now present Indeterminate axis now present Right-axis deviation no longer present Myocardial infarct finding no longer present Electronically Signed On 01-25-2022 18:21:56 ELECTRONIC IMAGING SYSTEM OPERATOR by Saloni Hoyt M.D. [email or web address]
[2022-01-24] MEDS: lactated ringers 500 ML 999 ML IV (23:57)
[2022-01-25] VITALS (99 sets, daily range): BP systolic 98–135; BP diastolic 60–80; PULSE 0–84; RESP 6–43; TEMP 36.3–37; O2SAT 82–99
[2022-01-25 03:57] LABS: Basophils # 0.1 10^3/uL (0.0-0.1); Basophils % 0.7 %; Eosinophils # 0.1 10^3/uL (0.0-0.8); Hematocrit 41.2 % (42.0-52.0); Hemoglobin 13.7 g/dL (11.7-16.6); Lymphocytes # 1.7 10^3/uL (0.8-4.8); Lymphocytes % 24.6 %; Mean Corpuscular HGB Conc 33.3 g/dL (30.0-36.0); Mean Corpuscular Hemoglobin 32.1 pg (28.0-34.0); Mean Corpuscular Volume 96.5 fl (80-94); Mean Platelet Volume 10.6 fL (7.4-10.4); Monocytes # 0.6 10^3/uL (0.2-0.9); Monocytes % 8.3 %; Neutrophils # 4.53 10^3/uL (1.8-7.7); Neutrophils % 64.1 %; Nucleated Red Blood Cells % 0 %; Platelet Count 159 10^3/cmm (130-400); Red Blood Count 4.27 10^6/uL (4.1-5.3); Red Cell Distribution Width 12.7 % (12.1-15.1); White Blood Count 7.1 10^3/uL (4.0-10.0)
--- NOTE | 2022-01-25 04:14 | PC.NURSE ---
Report was called to Katarina on Medsurg. Patient was transferred to room 277-1 with all belongings
[2022-01-25 04:44] LABS: Anion Gap 14.2 (5-19); Blood Urea Nitrogen 17 mg/dL (8-23); Carbon Dioxide 23 mmol/L (22-29); Chloride 110 mmol/L (98-107); Glucose 68 mg/dL (65-115); Magnesium 1.7 mg/dL (1.7-2.3); Osmolality Calculated 296 mOsm/kg (285-295); Potassium 4.2 mmol/L (3.5-5.1); Sodium 143 mmol/L (136-145)
[2022-01-25 05:36] LABS: D Dimer 1.89 ug/mIFEU (0-0.59)
[2022-01-25 06:07] LABS: Thyroid Stimulating Hormone 2.24 uIU/mL (0.27-4.20)
[2022-01-25 06:37] LABS: Vitamin B12 > 2000 pg/mL (232-1245)
[2022-01-25] MEDS: aspirin 81 mg Chew Tablet PO (09:48)
[2022-01-25] MEDS: levothyroxine 25 mcg Tablet PO (09:48)
[2022-01-25] MEDS: atorvastatin 40 mg Tablet 80 MG PO (09:48)
[2022-01-25] MEDS: lisinopril 10 mg Tablet PO (09:49)
[2022-01-25] MEDS: sennosides-docusate Tablet 1 TAB PO (09:49)
[2022-01-25] MEDS: clopidogrel 75 mg Tablet PO (09:49)
[2022-01-25] MEDS: enoxaparin 80 mg/0.8 mL Syringe SUBCUT (09:49)
--- NOTE | 2022-01-25 12:15 | PC.NURSE ---
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
--- NOTE | 2022-01-25 12:17 | XACV_ITS ---
Exam Room: [facility] Ht: 173 cm Wt: 87 kg BSA: 2.06 m2 Gender: Male : 1940 Any Known Allergies: Other Exam Priority: Routine Procedure(s): Procedure Description: Diagnostic procedure Procedure Description: PCI procedure Procedure Description: Drug Eluting Coronary Stent Procedure Description: PTCA Procedure Description: Coronary Angiography Diagnostic Cath Status: Urgent Diagnostic Findings * Left Main has no significant disease. * Circumflex has mild to moderate diffuse luminal irregularities. * LAD is a small sized vessel. After giving of * large septal branch, * in the midsegment it has 70 to 80% * narrowing. * It gives rise to a larger * than LAD diagonal * artery. * After * diagonal artery gives off a branch, it has 2 serial 90 to 95% stenosis * .. * RCA is patent. * RPL is subtotally occluded and is a small sized vessel. Has GEORGE I flow. . * Coronary angiography shows right dominance. PCI Status: Urgent PCI Indication: NSTE - ACS Interventional Findings * 1st Diagonal: 90% stenosis treated with a AB TREK 2.25X12 RX BALLOON, and MDT R NICOLAS 2.5X18 MARIALUISA. 0% residual stenosis, GEORGE: 3 flow. * Procedure Detail: We engaged left main artery with XB 3.5 guide catheter. IV heparin was administered to maintain ACT above 250 seconds. 0.014 run-through guidewire was used to cross the large diagonal artery stenosis. Predilation of the vessel was performed with 2.25 x 12 mm semicompliant balloon. This was followed by placement of 2.5 x 18 mm resolute Nicolas drug-eluting stent. At this time final angiogram was performed that showed excellent stent expansion, no residual stenosis and GEORGE-3 flow. Guidewire and guide catheter were removed. Patient left the Detail Maker And Fitter in a stable condition.. Conclusions 1. Severe, large 2. diagonal artery stenosis s/p successful revascularization with MARIALUISA x1. Small sized LAD has significant long stenosis. Will be medically treated Small sized RPL subtotal occlusion. Medical therapy.. 3. 1st Diagonal was treated with a Balloon, and Drug Eluting Stent. Recommendations * Transferred back to [facility]. * High intensity statin therapy. * Dual antiplatelet therapy for at least 1 year. * Outpatient cardiology follow-up in 4 weeks. Interventional RX Recommendation: PCI w/o planned CABG Diagnostic RX Recommendation: PCI w/o planned CABG Anticoagulation: Heparin Pressures Phase:Rest AO : 92 / 66 ( 79 ) @ 12:46:00 PM 101 / 71 ( 87 ) @ 12:51:00 PM Clinical Evaluation EBL: 5mL-10mL Procedural Details Procedure Consent Obtained. Admit Source: In Patient. Pre-Procedure Time Out. Identified patient by full name and date of as verbalized by the patient/guarantor. Does the consent match the physician's order: Yes. Accurate & Complete Informed Consent: Yes. Inpatient/Outpatient History & Physical on Chart: Yes. If H&P is completed, is and addenduem needed: N/A; If yes, is the addendum complete: N/A. Visualize and Verify Site with Patient/Guarantor: N/A. Relevant Radiology Images available: N/A. The risks, benefits, and alternatives of sedation and/or procedure were discussed by physician. The patient agrees to continue. Procedure started. [facility] Clinical Fraility Score: 4: Vulnerable. Detail Maker And Fitter Indications: ACS > 24 hours. Chest Pain Symptom Assessment: Typical Angina Symptoms. Correct patient, site and procedure confirmed by cath team. Current diagnosis: NSTEMI. PERRLA. Strong, equal hand college service officer bilaterally. Lungs clear x 5 lobes. IV Site on Arrival: 18 gauge in the left anticubital. IV Fluids: 0.9% NaCl at 75ml/hr. 0 mL infused prior to concrete plant laborer. Pre Procedural Pulses: bilateral radial was 3+. Oxygen started at 2liters/min via nasal canula. Anastasia Swartz RN was relieved by Saray Ferro RN as monitoring person. right groin was prepped with chloroprep then draped in the usual sterile fashion. right radial was prepped with chloroprep then draped in the usual sterile fashion. Physician notified. Baseline sample Acquired. HR: 52 BPM. Physician arrived. Physician scrubbed in. Immediate Pre-Procedure Time Out. Correct Patient: Yes; Correct Procedure: Yes; Correct Site: Yes; Correct Patient Position: Yes; Correct Supplies: Yes; Dried Flammable Prep: Yes; Blood Products Available: No;. Lidocaine 1% infiltrated to the right radial. Arterial access obtained. A 5 northern irish TIG catheter in over wire. Multiple views taken of left coronary artery. Catheter redirected to the RCA. Multiple views taken of right coronary artery. Catheter removed over the exchange wire. 6 northern irish XB 3.5 guide catheter was inserted over the wire. Exchange wire out. Runthrough guidewire was advanced through the guide catheter to lesion in the diaganol. Inflation number : 1 A AB TREK 2.25X12 RX BALLOON was prepped and advanced across the 1st Diag , then inflated to 8 BREANNA for 0:12 seconds. Inflation number: 2 The AB TREK 2.25X12 RX BALLOON was reinflated across the 1st Diag, to 8 BREANNA for 0:07 seconds. Balloon out. Balloon inserted to lesion in the diaganol. Angiography performed, checking results. Stent inserted to lesion in the diaganol. Inflation Number : 3 A DEREK Powell NICOLAS 2.5X18 MARIALUISA -Lot Number#[id number] was prepped and advanced across the 1st Diag. The stent was deployed at 0 BREANNA for 0:22 seconds. EXP 04-06-24. Stent balloon out over wire. Angiography performed, checking results. Runthrough wire out. Guide catheter out. Medication's Wasted: Lidocaine 1% = 3 mL. Medication's Wasted: Nitro = 49.6 mg. Medication's Wasted: Heparin = 1000 unit. Total IV fluids: 30 mL. Post-op diagnosis: Severe 1st diagonal artery stenosis, status post PCI. Complications: None. Post Procedure: Pulses reassessed and unchanged. PERRLA. Strong, equal hand college service officer bilaterally. Estimated blood loss: 5mL-10mL. Responsiveness - Normal response to verbal stimuli; alert and oriented, PERRLA. Airway - Unaffected, no intervention required; spontaneous ventilation. Circulation: W/N/L, pulses unchanged. Nausea/Vomiting: N/A. A TR Band was successful obtaining hemostatsis at the Right Radial artery insertion site. PCI Indication: NSTE. Procedure completed. Patient transferred by wheelchair to 1st floor. Vital chart was stopped. Access Site Site: Right Radial artery Sheath Size: 6 Fr Hemostasis Method: TR Band Hemostasis Success: Successful Procedure Medications Start: 12:28 PM Stop: 12:28 PM Medication: Versed Amount: 1 mg Route: I.V. Start: 12:28 PM Stop: 12:28 PM Medication: Fentanyl Amount: 50 mcg Route: I.V. Start: 12:31 PM Stop: 12:31 PM Medication: Diphendryamine Amount: 50 mg Route: I.V. Start: 12:34 PM Stop: 12:34 PM Medication: Nitrogylcerin Amount: 200 mcg Start: 12:47 PM Stop: 12:47 PM Medication: Versed 1 mg and Fentanyl 25 mcg Amount: 1 Route: I.V. Start: 12:54 PM Stop: 12:54 PM Medication: Nitrogylcerin Amount: 200 mcg Route: I.C. Start: 12:55 PM Stop: 12:55 PM Medication: Fentanyl Amount: 25 mcg Route: I.V. Start: 12:59 PM Stop: 12:59 PM Medication: Plavix Amount: 300 mg Route: P.O. I, the attending physician, have reviewed and verified all procedure medications. Yes, all medications given per verbal order History/Risk Factors Hypertension: Yes Dyslipidemia: Yes Peripheral Arterial Disease (PAD): No Myocardial Infarction ([place]): Yes Obesity: No Renal Disease: No Tobacco Use: Never Prior Interventions PCI: No CABG: No Valve Surgery: No Report Signatures Finalized by Arron Chase MD on 02/05/2022 12:22 PM
--- NOTE | 2022-01-25 15:29 | P.HPUD_ITS ---
Surgery/Procedure H&P Update DATE OF PROCEDURE: January 25, 2022 DATE H&P PERFORMED: 01/24/22 H&P UPDATE INFORMATION: I have reviewed H&P completed within last 30 days, I have examined patient prior to procedure and No changes to prior documentation PREOP DIAGNOSIS: NSTEMI PRIMARY INDICATION FOR PROCEDURE: NSTEMI PLANNED PROCEDURE: Left heart cath with possible PCI PATIENT REASSESSED PRIOR TO SEDATION, WITH NO CHANGE NOTED: Yes PHYSICAL EXAM: alert, oriented x 3, clear to auscultation bilaterally and regular rate & rhythm AIRWAY EVAL/ANESTHESIA PLAN: normal airway, ASA IV, Local Anesthesia, Risks, benefits & alternatives of sedation and/or procedure discussed and Patient ag nadege to continue as planned ADDITIONAL INFORMATION: Moderate sedation
--- NOTE | 2022-01-25 17:15 | PM.PN ---
Subjective Subjective: Patient underwent angiogram today and had a stent placed into the diagonal. No immediate perioperative complications. Medications: Reviewed: Yes Vitals/I&O/Wt Last Vital Signs Temp 97.6 F 01/25/22 12:26 Pulse 61 01/25/22 15:40 Resp 20 H 01/25/22 15:40 BP 114/67 01/25/22 15:40 Pulse Ox 90 01/25/22 15:40 O2 Del Method 01/25/22 12:26 01/25/22 01/25/22 01/25/22 06:59 14:59 22:59 Intake Total 500 / 1000 Output Total 300 / 300 Balance 200 / 700 Weight last 48 hrs Weight 86.693 kg Weight 81.647 kg Data 01/25/22 02:41 01/25/22 02:41 A&P Assessment and plan (1) Acute non-ST elevation myocardial infarction (NSTEMI): (2) HTN (hypertension): (3) Abnormal nuclear stress test: (4) Akathisia: Plan NSTEMI Status post angiogram earlier today with stent placement into the diagonal. continue aspirin 81 mg p.o. daily, Plavix 75 mg p.o. daily, statin Discontinue full dose Lovenox, changed to DVT prophylaxis dose at 40 mg s/c every 24. Bradycardic with heart rate ranging between 57-60, therefore beta-blockers are not being added. LVEF 60%, mild hypokinesis of the basal to mid anterolateral segment, grade 1 diastolic dysfunction. 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 Continue thyroxine for history of hypothyroidism Appreciate cardiology recommendations CODE STATUS: DNR/DNI DVT prophylaxis Lovenox 40 mg subcutaneous every 24 hours. Attestations Medical Necessity Statement*: sP angiogram today Coding Level of Care Code Acute Tractor Operator Battery for Abdi Fwd Diagnoses Acute non-ST elevation myocardial infarction (NSTEMI) I21.4 HTN (hypertension) I10 Abnormal nuclear stress test R94.39 Akathisia G25.71
--- NOTE | 2022-01-25 17:33 | PM.MISC ---
Miscellaneous Note Purpose of Documentation: Beief procedure Report Note: FINDINGS: Left main artery: Patent LAD: Small sized vessel. It has a 70% stenosis. Diagonal: Large sized vessel that is bigger in size than the LAD. It has a mid vessel, 90-95%stenosis. Patient underwent successful revascularization of the diagonal artery with DESx1. LCx: Patent RCA: Patent. There is a small sized PL branch that is diffusely diseased PLAN: Aspirin and Plavix for atleast 1 year High intensity statin therapy
--- NOTE | 2022-01-25 18:39 | PC.NURSE ---
TR band off. No hematoma present. No oozing. Dressing in place.
[2022-01-26] VITALS (9 sets, daily range): BP systolic 114–129; BP diastolic 68–77; PULSE 52–64; RESP 14–22; TEMP 36.5–36.8; O2SAT 87–93
[2022-01-26 08:28] LABS: Basophils # 0.1 10^3/uL (0.0-0.1); Eosinophils # 0.3 10^3/uL (0.0-0.8); Eosinophils % 4.9 %; Hematocrit 42.5 % (42.0-52.0); Hemoglobin 14.1 g/dL (11.7-16.6); Lymphocytes # 1.5 10^3/uL (0.8-4.8); Lymphocytes % 25.9 %; Mean Corpuscular HGB Conc 33.2 g/dL (30.0-36.0); Mean Corpuscular Hemoglobin 32.5 pg (28.0-34.0); Mean Corpuscular Volume 97.9 fl (80-94); Mean Platelet Volume 9.5 fL (7.4-10.4); Monocytes # 0.6 10^3/uL (0.2-0.9); Neutrophils # 3.41 10^3/uL (1.8-7.7); Nucleated Red Blood Cells % 0 %; Platelet Count 153 10^3/cmm (130-400); Red Blood Count 4.34 10^6/uL (4.1-5.3); Red Cell Distribution Width 12.8 % (12.1-15.1); White Blood Count 5.9 10^3/uL (4.0-10.0)
[2022-01-26 08:51] LABS: Anion Gap 12.2 (5-19); Blood Urea Nitrogen 19 mg/dL (8-23); Calcium 8.5 mg/dL (8.5-10.5); Carbon Dioxide 26 mmol/L (22-29); Chloride 106 mmol/L (98-107); Chol HDL Ratio 2.84 mg/dL (1.0-5.00); Cholesterol 128 mg/dL (0-200); Glucose 102 mg/dL (65-115); HDL Cholesterol 45 mg/dL (60-100); LDL Cholesterol Calculated 63 mg/dL (50-129); LDL Cholesterol Direct 72 mg/dL (0-100); Osmolality Calculated 292 mOsm/kg (285-295); Potassium 4.2 mmol/L (3.5-5.1); Sodium 140 mmol/L (136-145); Triglycerides 102 mg/dL (0-150)
[2022-01-26] MEDS: aspirin 81 mg Chew Tablet PO (09:16)
[2022-01-26] MEDS: atorvastatin 40 mg Tablet 80 MG PO (09:17)
[2022-01-26] MEDS: levothyroxine 25 mcg Tablet PO (09:17)
[2022-01-26] MEDS: lisinopril 10 mg Tablet PO (09:18)
[2022-01-26] MEDS: clopidogrel 75 mg Tablet PO (09:18)
--- NOTE | 2022-01-26 10:33 | PM.PN ---
Subjective Subjective: Feels well and is eager to go home s/p MARIALUISA to90% diagonal lesion. 70% long stenosis in small LAD and PLV lesion for medical management. Medications: Reviewed: Yes Vitals/I&O/Wt Last Vital Signs Temp 97.7 F 01/26/22 07:24 Pulse 58 L 01/26/22 07:24 Resp 20 H 01/26/22 07:24 BP 118/77 01/26/22 07:24 Pulse Ox 93 01/26/22 07:24 O2 Del Method 01/25/22 20:00 01/25/22 01/26/22 01/26/22 22:59 06:59 14:59 Intake Total 600 / 600 Output Total 725 / 725 200 / 925 800 / 800 Balance -125 / -125 -200 / -325 -800 / -800 Weight last 48 hrs Weight 191 lb 2 oz Weight 180 lb Physical Exam Narrative: Gen: NAD HEENT/Neck: No JVD, no pallor or icterus RS: CTAB/L CVS: s1, S2 normal. No murmur, rub or gallop PA: soft, NT ND, 2+BS Ext: No edema, right wrist with no bruising or hematoma FILM SPLICER: AAOx 3, No FND Data 01/26/22 08:14 01/26/22 08:14 A&P Assessment and plan (1) Acute non-ST elevation myocardial infarction (NSTEMI): s/p MARIALUISA placement to large diagonal artery -continue ASA, plavix, statin, losartan and amlodipine -No beta priscila d/t low HR -stable to be discharged. -f/u in 1 week with Abida -TODD in 1 week (2) CAD (coronary artery disease): (3) Benign essential hypertension with target blood pressure below 140/90: Currently he is normotensive. May continue on the current medication. (4) Dyslipidemia: May discontinue the pravastatin. continue on Lipitor 40 mg on discharge Attestations Medical Necessity Statement*: stable to be discharged home Time Spent in Patient Care: 16 - 35 minutes Coding Level of Care Code Acute Data Systems Analyst for g Fwd Diagnoses Acute non-ST elevation myocardial infarction (NSTEMI) I21.4 CAD (coronary artery disease) I25.10 Benign essential hypertension with target blood pressure below 140/90 I10 Dyslipidemia E78.5
--- NOTE | 2022-01-26 11:13 | P.DS_ITS ---
Discharge Providers Date of Admission: 01/24/22 21:39 Date of Discharge: January 26, 2022 Attending Provider at Admission: Shonna Wilder MD Attending Provider at Discharge: Lisa Cho MD Primary Care Provider: Augustina Lopez DO Diagnoses at Discharge Discharge Diagnosis (1) Acute non-ST elevation myocardial infarction (NSTEMI): Status: Acute (2) Benign essential hypertension with target blood pressure below 140/90: Status: Acute (3) Dyslipidemia: Status: Acute Reason for Visit Reason for Visit: Chest Pain Hospital Course Hospital Course Gurpreet Lang is a 81 year old male with a history of hypertension,?? Dyslipidemia and abnormal stress test, he is presenting with complaints of a prolonged episode of chest pain.? He was found to have an elevated troponin T.? Diagnosis was consistent with that of NSTEMI. Patient was seen by cardiology and underwent coronary angiogram on January 25, 2022. He was found to have a mid vessel 90 to 95% stenosis of the diagonal. He underwent successful revascularization with MARIALUISA x1. Patient is chest pain-free at discharge. He is recommended to continue aspirin Plavix statin losartan and amlodipine. Beta- blockers have not been initiated due to low heart rate. Follow-up with cardiology nurse practitioner in 1 week and then cardiology in 1 month. Pravastatin has been changed to Lipitor at discharge per cardiology recommendations. Physical Exam Narrative: General: No acute distress, AO x3 HEENT: PERRLA, pupils bilaterally equal and reactive, pallors not present Chest: Normal vesicular breath sounds, no added sounds, equal good air entry bilaterally CVS: S1-S2 regular, no murmurs, no tachycardia, no gallops, no rubs Abdomen: Soft, nontender, no organomegaly, bowel sounds present Neuro: No focal deficits, no facial deformity, AO x3, power 5/5 in all limbs Discharge Data Studies Completed and Pending Completed Studies During Hospitalization Category Date Time Status XR chest 1V portable [id number] Stat Exams 01/24/22 17:13 Completed CV. echo complete* [id number] Routine Ultrasound 01/24/22 22:13 Completed Pending at discharge Category Date Time Status COLLECTOR OF PORT request for service Routine Exams 01/25/22 12:17 Taken Radiology Impressions Chest X-Ray 01/24/22 17:13 IMPRESSION: Left lower lobe atelectasis. Laboratory Results WBC 5.9 10^3/uL (4.0-10.0) 01/26/22 08:14 RBC 4.34 10^6/uL (4.1-5.3) 01/26/22 08:14 Hgb 14.1 g/dL (11.7-16.6) 01/26/22 08:14 Hct 42.5 % (42.0-52.0) 01/26/22 08:14 MCV 97.9 fl (80-94) H 01/26/22 08:14 MCH 32.5 pg (28.0-34.0) 01/26/22 08:14 MCHC 33.2 g/dL (30.0-36.0) 01/26/22 08:14 RDW 12.8 % (12.1-15.1) 01/26/22 08:14 Plt Count 153 10^3/cmm (130-400) 01/26/22 08:14 MPV 9.5 fL (7.4-10.4) 01/26/22 08:14 Neut % (Auto) 58.0 % 01/26/22 08:14 Lymph % (Auto) 25.9 % 01/26/22 08:14 Mcclain % (Auto) 10.0 % 01/26/22 08:14 Eos % (Auto) 4.9 % 01/26/22 08:14 Baso % (Auto) 1.0 % 01/26/22 08:14 Neut # (Auto) 3.41 10^3/uL (1.8-7.7) 01/26/22 08:14 Lymph # (Auto) 1.5 10^3/uL (0.8-4.8) 01/26/22 08:14 Mcclain # (Auto) 0.6 10^3/uL (0.2-0.9) 01/26/22 08:14 Eos # (Auto) 0.3 10^3/uL (0.0-0.8) 01/26/22 08:14 Baso # (Auto) 0.1 10^3/uL (0.0-0.1) 01/26/22 08:14 Nucleated RBC % (auto) 0 % 01/26/22 08:14 Nucleated RBCs # 0.0 /100WBC 01/26/22 08:14 PT 15.20 SECONDS (12.1-14.9) H 01/24/22 17:35 INR 1.17 (0.8-1.2) 01/24/22 17:35 APTT 25.8 SECONDS (23.9-36.7) 01/24/22 17:35 D-Dimer 1.89 ug/mIFEU (0-0.59) H 01/25/22 04:56 Sodium 140 mmol/L (136-145) 01/26/22 08:14 Potassium 4.2 mmol/L (3.5-5.1) 01/26/22 08:14 Chloride 106 mmol/L (98-107) 01/26/22 08:14 Carbon Dioxide 26 mmol/L (22-29) 01/26/22 08:14 Anion Gap 12.2 (5-19) 01/26/22 08:14 BUN 19 mg/dL (8-23) 01/26/22 08:14 Creatinine 1.3 mg/dL (0.7-1.2) H 01/26/22 08:14 GFR Calculation Not Reportable 01/26/22 08:14 Glucose 102 mg/dL (65-115) 01/26/22 08:14 Estimat Average Glucose 143 01/24/22 19:35 Hemoglobin A1c 6.6 % (4.0-6.0) H 01/24/22 19:35 Calculated Osmolality 292 mOsm/kg (285-295) 01/26/22 08:14 Calcium 8.5 mg/dL (8.5-10.5) 01/26/22 08:14 Magnesium 1.7 mg/dL (1.7-2.3) 01/25/22 02:41 Total Bilirubin 0.6 mg/dL (0.15-1.2) 01/24/22 17:35 AST 22 U/L (0-40) 01/24/22 17:35 ALT 17 U/L (0-41) 01/24/22 17:35 Alkaline Phosphatase 72 U/L (40-130) 01/24/22 17:35 Troponin T Baseline 15 ng/L (0-15) 01/24/22 17:35 Troponin T 120 Minute 27.56 ng/L (0-15) H 01/24/22 19:35 Delta Troponin T 12.56 ABS# (0-10) H* 12/13/22 19:35 Troponin T Hi Sens 6Hr 35.17 ng/L (0-15) H 01/24/22 21:06 Troponin T Hi Sens 6Hr Delta 20.17 ng/L (0-12) H* 01/24/22 21:06 NT-Pro-B Natriuret Pep 387 pg/mL (0-450) 01/24/22 17:35 Total Protein 6.2 g/dL (6.6-8.7) L 01/24/22 17:35 Albumin 4.0 g/dL (3.5-5.2) 01/24/22 17:35 Globulin 2.2 g/dL (1.3-4.6) 01/24/22 17:35 Triglycerides 102 mg/dL (0-150) 01/26/22 08:14 Cholesterol 128 mg/dL (0-200) 01/26/22 08:14 LDL Cholesterol Direct 72 mg/dL (0-100) 01/26/22 08:14 LDL Cholesterol, Calc 63 mg/dL (50-129) 01/26/22 08:14 HDL Cholesterol 45 mg/dL (60-100) L 01/26/22 08:14 LDL/HDL Ratio 1.40 RATIO (0.00-3.22) 01/26/22 08:14 Cholesterol/HDL Ratio 2.84 mg/dL (1.0-5.00) 01/26/22 08:14 Lipase 20 U/L (13-60) 01/24/22 17:35 Vitamin B12 > 2000 pg/mL (232-1245) H 01/24/22 19:35 TSH 2.24 uIU/mL (0.27-4.20) 01/24/22 19:35 Influenza Type A Ag negative (Negative) 01/24/22 17:54 Influenza Type B Ag negative (Negative) 01/24/22 17:54 SARS-CoV-2 Ag (Rapid) Negative (Negative) 01/24/22 17:54 Vitals Last Vital Signs Temp 97.7 F 01/26/22 07:24 Pulse 58 L 01/26/22 07:24 Resp 20 H 01/26/22 07:24 BP 118/77 01/26/22 07:24 Pulse Ox 93 01/26/22 07:24 O2 Del Method 01/25/22 20:00 Discharge Plan Discharge Patient Disposition: Home Condition: Stable Prescriptions: New clopidogrel 75 mg Tablet 75 mg PO DAILY 30 Days Qty: 30 0RF nitroglycerin 0.4 mg Tablet, Sublingual 0.4 mg sublingual Q5M PRN (Reason: Chest Pain) 30 Days Qty: 30 0RF aspirin 81 mg Tablet,Chewable 81 mg PO DAILY 30 Days Qty: 30 0RF atorvastatin 40 mg Tablet 40 mg PO DAILY 30 Days Qty: 30 0RF Continued [id number]-iejadtrc-yzpzbu Tablet 1 tab PO DAILY sertraline 100 mg tablet 100 mg PO DAILY hydrocodone-acetaminophen 5-325 mg tablet 1 tab PO Q4H PRN (Reason: Pain) amlodipine 5 mg tablet 5 mg PO DAILY Qty: 90 3RF losartan 50 mg tablet 50 mg PO DAILY Qty: 90 3RF loperamide 2 mg capsule 2 mg PO PRN promethazine 25 mg tablet 25 mg PO PRN levothyroxine 25 mcg Tablet 25 mcg PO DAILY Vitamin B-12 250 mcg Tablet 250 mcg PO DAILY Discontinued ibuprofen 200 mg tablet 200 mg PO .4-8 day PRN (Reason: Pain, Mild) meloxicam 15 mg tablet 15 mg PO DAILY aspirin 325 mg tablet 325 mg PO DAILY pravastatin 20 mg tablet 20 mg PO DAILY Qty: 90 3RF Discharge Orders: Discharge Order (Routine); Ordered 01/26/22 Ordered By: Lisa Cho Referrals: Augustina Lopez DO [Primary Care Provider] - Galina Simmons FNP [Nurse Practitioner] - 7-10 days Discharge Diet: Usual diet Discharge Activity: Resume usual activity Patient Instructions: Opioid Safety Discharge Attestations Time Spent in Discharge Care*: greater than 30 min Quality Metrics Clinical Quality Measures [ Acute Myocardial Infaction { Clinical Trial Participant: No; Contraindication to aspirin: None; Aspirin prescribed; Contraindication to statin: None; Statin prescribed; Contraindication to PCI: None; PCI performed;}] Coding Level of Care Code Acute g FW VT note Diagnoses Acute non-ST elevation myocardial infarction (NSTEMI) I21.4 Benign essential hypertension with target blood pressure below 140/90 I10 Dyslipidemia E78.5
== END 2022-01-26 14:44 | disposition home or self-care (01) | DRG 247 ==
LOC: ER 21:39 → CSU 21:40 → MEDSURG 01-25 04:22 → CSU 01-25 12:45
PROVIDERS: Internal Medicine; Internal Medicine Cardiovascular Disease; Admitting Provider Internal Medicine; Emergency Provider Emergency Medicine; PCP Family Medicine; Visit Provider Student in an Organized Health Care Education/Training Program
PROC: 027034Z Dilation of Coronary Artery, One Artery with Drug-eluting Intraluminal Device, Percutaneous Approach (ICD-10-PCS; principal; 2022-01-25 12:00)
PROC: 027034Z Dilation of Coronary Artery, One Artery with Drug-eluting Intraluminal Device, Percutaneous Approach (ICD-10-PCS; 2022-01-25 12:00)
DX: I21.4 Non-ST elevation (NSTEMI) myocardial infarction (principal); G99.2 Myelopathy in diseases classified elsewhere; I10 Essential (primary) hypertension; E78.5 Hyperlipidemia, unspecified; Z79.891 Long term (current) use of opiate analgesic; E11.9 Type 2 diabetes mellitus without complications; I25.2 Old myocardial infarction; M43.12 Spondylolisthesis, cervical region; Z66 Do not resuscitate; K58.9 Irritable bowel syndrome, unspecified; G25.81 Restless legs syndrome; I25.110 Atherosclerotic heart disease of native coronary artery with unstable angina pectoris
CPT/HCPCS: 36415; 71045; 80048; 80053; 80061; 82607; 83036; 83690; 83721; 83735; 83880; 84443; 84484; 85025; 85378; 85610; 85730; 87426; 87804; 93005; 93306; 93454; 96360; 96372; 99152; 99153; 99285; C1725; C1769; C1874; C1887; C1894; C9600; J1200; J1644; J1650; J2250; J3010; J3490; J7030; J7040; J7120; Q9967

== ENCOUNTER → 2022-02-16 13:55 | Outpatient (BNVA) | payer MEDICARE, SELFPAY | PROVIDERS: PCP Family Medicine; Visit Provider Nurse Practitioner Family | DX: I25.10 Atherosclerotic heart disease of native coronary artery without angina pectoris (principal); I10 Essential (primary) hypertension; I25.2 Old myocardial infarction | CPT/HCPCS: 36415; 80048; 99214 ==

== ENCOUNTER 2022-05-19 19:34 | Emergency (ER) | payer MEDICARE, SELFPAY ==
[2022-05-19 19:36] VITALS: BP 126/80; PULSE 100; RESP 14; TEMP 36.6; O2SAT 95
--- NOTE | 2022-05-19 19:42 | XRR_ITS ---
PROCEDURE INFORMATION: Exam: XR Chest Exam date and time: 05/19/2022 7:47 PM Age: 81 years old Clinical indication: Pain; Chest pressure; Additional info: Cp TECHNIQUE: Imaging protocol: Radiologic exam of the chest. Views: 1 view. COMPARISON: CR XR chest 1V portable [id number] 01/24/2022 5:41 PM FINDINGS: Lungs: Unremarkable. No consolidation. Pleural spaces: Unremarkable. No pleural effusion. No pneumothorax. Heart/Mediastinum: Cardiomegaly. Bones/joints: Unremarkable. XR/XR chest 1V portable [id number] IMPRESSION: Cardiomegaly, lungs are clear
--- NOTE | 2022-05-19 19:45 | ED_ITS ---
HPI - Chest Pain General: Chief Complaint: Chest Pain Stated Complaint: CP Time Seen by Provider: 05/19/22 19:39 Source: patient and EMS Mode of arrival: EMS Limitations: no limitations History of Present Illness: 81-year-old male has a history of coronary disease had a stent placed in January states that tonight at 630 he was sitting on the toilet having a bowel movement started having some chest pain states he is currently pain-free EMS had given him aspirin and nitro. States his pain was a sharp pain in the center of his chest it was a 6 out of 10 denies any dyspnea or diaphoresis or nausea. Associated symptoms: Deny abdominal pain, dyspnea, fever(s), nausea or vomiting Review of Systems Const: Denies: fever(s), chills, body aches or change in appetite Eyes: Denies: blurry vision or eye discomfort ENMT: Denies: throat pain or dental pain Card: Reports: chest pain Resp: Denies: dyspnea GI: Denies: abdominal pain, nausea, vomiting or diarrhea : Denies: dysuria Musc: Denies: neck pain or back pain Skin/Breast: Denies: rash Neuro: Denies: headache(s) Psych: Denies: depression Alexei/Lymph: Denies: easy bruising All/Imm: Denies: urticaria PFSH ED PFSH: Medical History Abnormal nuclear stress test CAD (coronary artery disease) Cervical disc disorder with myelopathy of mid-cervical region History of [place] (myocardial infarction) 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 Pain management contract signed 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 Surgical History History of appendectomy (~1974) History of cholecystectomy (~1979) History of rotator cuff surgery (~1996) Family History Father CAD (coronary artery disease) Myocardial infarction Other Hypertension Social History Smoking and tobacco status: never smoked Alcohol intake: never Household members: spouse Marital status: Current occupational status: retired Physical Exam Const: COMMON NORMALS: no acute distress, patient oriented x3 and healthy appearing HENMT: COMMON NORMALS: normocephalic and atraumatic HEAD & SCALP: normocephalic and atraumatic Eye: COMMON NORMALS: Equal, round and reactive pupils present and EOMs intact bilaterally PUPIL: Yes Equal, round and reactive pupils present Neck/C-Spine: COMMON NORMALS: full ROM and supple Chest: COMMONS NORMALS: normal inspection of the chest and normal palpation of entire chest wall Resp: COMMON NORMALS: normal respiratory effort, No retractions, No use of ac cessory muscles and clear to auscultation bilaterally AUSCULTATION: clear to auscultation bilaterally Cardio: COMMON NORMALS: regular rate, regular rhythm and No murmurs present (Cardio) RATE: regular rate RHYTHM: regular rhythm GI: COMMON NORMALS: Normal to inspection, nondistended, normoactive bowel sounds present, Soft to palpation, non-tender and no masses PALPATION: Yes Soft to palpation Extremity: COMMON NORMALS: normal to inspection and full ROM Neuro: COMMON NORMALS: patient oriented x3, moves all extremities and no focal motor deficits Psych: COMMON NORMALS: mental status grossly normal, Normal thought process present and cooperative THOUGHT PROCESS: Normal thought process present Skin: COMMON NORMALS: no rashes or lesions noted and no wounds GENERAL SKIN EXAM: no rashes or lesions noted Course Vital Signs: Vital signs: Vital Signs Temperature 97.9 F 05/19/22 19:36 Pulse Rate 90 05/19/22 22:00 Respiratory Rate 16 05/19/22 22:00 Blood Pressure 134/86 05/19/22 22:00 Pulse Oximetry 94 05/19/22 22:00 Oxygen Delivery Me thod 05/19/22 22:00 MDM - Chest Pain Medical Decision Making Patient presents here with chest pains atypical in nature his initial and repeat troponin are normal EKGs are normal no signs of dissection or pulmonary embolism 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 Lab Data 05/19/22 19:53 05/19/22 19:53 Radiology Impressions Chest X-Ray 05/19/22 19:42 IMPRESSION: Cardiomegaly, lungs are clear Laboratory Results WBC 10.0 10^3/uL (4.0-10.0) 05/19/22 19:53 RBC 4.58 10^6/uL (4.1-5.3) 05/19/22 19:53 Hgb 14.7 g/dL (11.7-16.6) 05/19/22 19:53 Hct 43.7 % (42.0-52.0) 05/19/22 19:53 MCV 95.4 fl (80-94) H 05/19/22 19:53 MCH 32.1 pg (28.0-34.0) 05/19/22 19:53 MCHC 33.6 g/dL (30.0-36.0) 05/19/22 19:53 RDW 12.7 % (12.1-15.1) 05/19/22 19:53 Plt Count 133 10^3/cmm (130-400) 05/19/22 19:53 MPV 11.3 fL (7.4-10.4) H 05/19/22 19:53 Neut % (Auto) 85.9 % 05/19/22 19:53 Lymph % (Auto) 7.7 % 05/19/22 19:53 [place] % (Auto) 5.6 % 05/19/22 19:53 Eos % (Auto) 0.2 % 05/19/22 19:53 Baso % (Auto) 0.4 % 05/19/22 19:53 Neut # (Auto) 8.59 10^3/uL (1.8-7.7) H 05/19/22 19:53 Lymph # (Auto) 0.8 10^3/uL (0.8-4.8) 05/19/22 19:53 [place] # (Auto) 0.6 10^3/uL (0.2-0.9) 05/19/22 19:53 Eos # (Auto) 0.0 10^3/uL (0.0-0.8) 05/19/22 19:53 Baso # (Auto) 0.0 10^3/uL (0.0-0.1) 05/19/22 19:53 Nucleated RBC % (auto) 0 % 05/19/22 19:53 Nucleated RBCs # 0.0 /100WBC 05/19/22 19:53 PT 14.60 SECONDS (12.1-14.9) 05/19/22 19:53 INR 1.11 (0.8-1.2) 05/19/22 19:53 Sodium 139 mmol/L (136-145) 05/19/22 20:18 Potassium 4.1 mmol/L (3.5-5.1) 05/19/22 20:18 Chloride 105 mmol/L (98-107) 05/19/22 20:18 Carbon Dioxide 20 mmol/L (22-29) L 05/19/22 20:18 Anion Gap 18.1 (5-19) 05/19/22 20:18 BUN 19 mg/dL (8-23) 05/19/22 20:18 Creatinine 1.1 mg/dL (0.7-1.2) 05/19/22 20:18 GFR Calculation Not Reportable 05/19/22 20:18 Glucose 174 mg/dL (65-115) H 05/19/22 20:18 Calculated Osmolality 294 mOsm/kg (285-295) 05/19/22 20:18 Calcium 8.8 mg/dL (8.5-10.5) 05/19/22 20:18 Total Bilirubin 0.8 mg/dL (0.15-1.2) 05/19/22 20:18 AST 27 U/L (0-40) 05/19/22 20:18 ALT 23 U/L (0-41) 05/19/22 20:18 Alkaline Phosphatase 75 U/L (40-130) 05/19/22 20:18 Troponin T Baseline 10 ng/L (0-15) 05/19/22 19:53 Troponin T 120 Minute 12.23 ng/L (0-15) 05/19/22 21:36 Delta Troponin T 2.23 ABS# (0-10) 05/19/22 21:36 Total Protein 6.8 g/dL (6.6-8.7) 05/19/22 20:18 Albumin 4.0 g/dL (3.5-5.2) 05/19/22 20:18 Globulin 2.8 g/dL (1.3-4.6) 05/19/22 20:18 EKG Data EKG 1: I personally reviewed and interpreted this EKG as follows: EKG interpretation date: 05/19/22 EKG interpretation time: 19:50 Interpretation: nsr hr [address] or t wave abnormalities qrs 132 qtc 420 Discharge Plan Discharge Patient Disposition: Home Clinical Impression: Chest pain Condition: Stable Prescriptions: No Action [id number]-lonpwpgq-[id number] Tablet 1 tab PO DAILY sertraline 100 mg tablet 100 mg PO DAILY hydrocodone-acetaminophen 5-325 mg tablet 1 tab PO Q4H PRN (Reason: Pain) amlodipine 5 mg tablet 5 mg PO DAILY Qty: 90 3RF pravastatin 40 mg tablet 40 mg PO DAILY meloxicam 15 mg tablet 15 mg PO DAILY losartan 50 mg tablet 25 mg PO DAILY loperamide 2 mg capsule 2 mg PO PRN promethazine 25 mg tablet 25 mg PO PRN levothyroxine 25 mcg Tablet 25 mcg PO DAILY Vitamin B-12 250 mcg Tablet 250 mcg PO DAILY Discharge Orders: Discharge ED (Routine); Ordered 05/19/22 Ordered By: Vika Swartz Referrals: Arron Chase M.D [Physician] - 1-3 days Augustina Lopez DO [Primary Care Provider] - Discharge Diet: Advance as tolerated Discharge Activity: Resume usual activity Patient Instructions: Chest Pain (ED) Coding Level of Care Code ED Practice Managers for Abdi Dawson
--- NOTE | 2022-05-19 19:50 | ECG_ITS ---
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 Measurements Intervals [place] Rate: 97 P: -16 MD: 136 QRS: -67 QRSD: 132 T: -24 QT: 366 QTc: 465 Interpretive Statements SINUS RHYTHM POSSIBLE LEFT ATRIAL ENLARGEMENT [-0.1mV P-WAVE IN V1/V2] INDETERMINATE AXIS RIGHT BUNDLE BRANCH BLOCK [120+ ms QRS DURATION, UPRIGHT V1, 40+ ms S IN I/aVL/V4/V5/V6] LEFT ANTERIOR FASCICULAR BLOCK [QRS AXIS <= -45, QR IN I, RS IN II] Compared to ECG 01/24/2022 23:38:59 Left anterior fascicular block now present Ventricular premature complex(es) no longer present Electronically Signed On 05-19-2022 21:35:43 CDT by Saloni Hoyt M.D. [id number]
--- NOTE | 2022-05-19 19:53 | PC.NURSE ---
Pt on bedside patient monitor
[2022-05-19 20:18] LABS: Basophils % 0.4 %; Eosinophils % 0.2 %; Hematocrit 43.7 % (42.0-52.0); Hemoglobin 14.7 g/dL (11.7-16.6); Lymphocytes # 0.8 10^3/uL (0.8-4.8); Lymphocytes % 7.7 %; Mean Corpuscular HGB Conc 33.6 g/dL (30.0-36.0); Mean Corpuscular Hemoglobin 32.1 pg (28.0-34.0); Mean Corpuscular Volume 95.4 fl (80-94); Mean Platelet Volume 11.3 fL (7.4-10.4); Monocytes # 0.6 10^3/uL (0.2-0.9); Monocytes % 5.6 %; Neutrophils # 8.59 10^3/uL (1.8-7.7); Neutrophils % 85.9 %; Nucleated Red Blood Cells % 0 %; Platelet Count 133 10^3/cmm (130-400); Red Blood Count 4.58 10^6/uL (4.1-5.3); Red Cell Distribution Width 12.7 % (12.1-15.1)
[2022-05-19 20:23] LABS: INR 1.11 (0.8-1.2)
[2022-05-19 20:24] LABS: Troponin(5th) Baseline 10 ng/L (0-15)
[2022-05-19 21:00] VITALS: BP 139/84; PULSE 90; RESP 19; O2SAT 94
[2022-05-19 21:20] LABS: Alanine Aminotransferase 23 U/L (0-41); Alkaline Phosphatase 75 U/L (40-130); Anion Gap 18.1 (5-19); Aspartate Amino Transferase 27 U/L (0-40); Blood Urea Nitrogen 19 mg/dL (8-23); Calcium 8.8 mg/dL (8.5-10.5); Carbon Dioxide 20 mmol/L (22-29); Chloride 105 mmol/L (98-107); Globulin 2.8 g/dL (1.3-4.6); Glucose 174 mg/dL (65-115); Osmolality Calculated 294 mOsm/kg (285-295); Potassium 4.1 mmol/L (3.5-5.1); Sodium 139 mmol/L (136-145); Total Bilirubin 0.8 mg/dL (0.15-1.2); Total Protein 6.8 g/dL (6.6-8.7)
--- NOTE | 2022-05-19 21:48 | ECG_ITS ---
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 Measurements Intervals [place] Rate: 90 P: 32 CO: 133 QRS: 227 QRSD: 145 T: 17 QT: 383 QTc: 471 Interpretive Statements SINUS RHYTHM POSSIBLE LEFT ATRIAL ENLARGEMENT [-0.1mV P-WAVE IN V1/V2] INDETERMINATE AXIS RIGHT BUNDLE BRANCH BLOCK [120+ ms QRS DURATION, UPRIGHT V1, 40+ ms S IN I/aVL/V4/V5/V6] Compared to ECG 05/19/2022 19:50:33 Left anterior fascicular block no longer present Electronically Signed On 05-20-2022 21:46:24 CDT by Saloni Hoyt M.D. [id number]
[2022-05-19 22:00] VITALS: BP 134/86; PULSE 90; RESP 16; O2SAT 94
[2022-05-19 22:02] LABS: Troponin 5 2HR 12.23 ng/L (0-15)
[2022-05-19 22:08] LABS: Troponin 5 2HR Delta 2.23 ABS# (0-10)
== END 2022-05-19 22:31 | disposition home or self-care (01) ==
PROVIDERS: Emergency Provider Emergency Medicine; PCP Family Medicine
DX: R07.9 Chest pain, unspecified (principal); I25.10 Atherosclerotic heart disease of native coronary artery without angina pectoris; I25.2 Old myocardial infarction; I10 Essential (primary) hypertension
CPT/HCPCS: 36415; 71045; 80053; 84484; 85025; 85610; 93005; 99285

== ENCOUNTER 2022-08-18 14:18 | Emergency (ER) | payer MEDICARE, SELFPAY ==
[2022-08-18 14:19] VITALS: BP 129/69; PULSE 56; RESP 18; TEMP 36.7; O2SAT 93; BMI 30.4
[2022-08-18 14:27] VITALS: BP 129/69; PULSE 87; RESP 16; O2SAT 93
--- NOTE | 2022-08-18 14:33 | CTR_ITS ---
PROCEDURE INFORMATION: Exam: CT Abdomen And Pelvis With Contrast Exam date and time: 08/18/2022 3:51 PM Age: 81 years old Clinical indication: Other: Left scrotal swelling; Prior surgery; Surgery date: 6+ months; Surgery type: Gb, appy; Additional info: Left scrotal swelling, suspect hernia, R/O incarceration TECHNIQUE: Imaging protocol: Computed tomography of the abdomen and pelvis with contrast. Radiation optimization: All CT scans at this facility use at least one of these dose optimization techniques: automated exposure control; mA and/or kV adjustment per patient size (includes targeted exams where dose is matched to clinical indication); or iterative reconstruction. Contrast material: OMNI 350; Contrast volume: 100 ml; Contrast route: INTRAVENOUS (IV); REPORTING DATA: Count of CT and Cardiac NM exams in prior 12 months: This patient has received [address] and 0 known cardiac nuclear medicine studies in the 12 months prior to the current study. COMPARISON: CR XR KUB [id number] 11/21/2016 12:58 AM RADIATION DOSE METRICS: Total DLP (mGy-cm): 959.63 FINDINGS: Lungs: Minor atelectatic changes at the lung bases which are otherwise clear. Liver: Liver is unremarkable. No mass or enlargement detected. Gallbladder and bile ducts: Gallbladder is been removed. There is moderate dilatation of common bile duct measuring 1.5 cm in maximum diameter that may be postsurgical and age-related. Pancreas: Unremarkable. Main pancreatic duct is not significantly dilated. Spleen: Spleen is not enlarged. 1 cm hypodensity likely benign. Adrenal glands: Normal. No mass. Kidneys and ureters: Numerous nonobstructing calyceal stones both kidneys. No hydronephrosis. Stomach and bowel: Large left inguinal scrotal hernia containing long segment of sigmoid colon without evidence of obstruction or strangulation. Remainder of the GI tract is unremarkable. Appendix: No evidence of appendicitis. Intraperitoneal space: Unremarkable. No free air. No significant fluid collection. Vasculature: Unremarkable. No abdominal aortic aneurysm. Lymph nodes: Unremarkable. No enlarged lymph nodes. Urinary bladder: Urinary bladder is mildly distended but otherwise unremarkable. Reproductive: Unremarkable. MAC Bones/joints: Moderate degenerative changes throughout the lumbar spine with mild wedge-shaped compression fracture L1 likely longstanding. Soft tissues: Diffuse thinning and atrophy of right abdominal wall musculature with the postoperative changes present. CT/CT abdomen pelvis w con* [id number] IMPRESSION: 1. Large left inguinal scrotal hernia containing loop of sigmoid colon without evidence of obstruction or strangulation. 2. Multiple nonobstructing renal calculi both kidneys. 3. Prior cholecystectomy with moderate dilatation of the common bile duct that may be longstanding, postsurgical in nature. Please correlate with appropriate laboratory parameters. 4. Additional chronic findings as above.
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
[2022-08-18 15:19] LABS: Basophils % 0.7 %; Eosinophils # 0.3 10^3/uL (0.0-0.8); Eosinophils % 4.9 %; Hematocrit 40.4 % (42.0-52.0); Hemoglobin 13.4 g/dL (11.7-16.6); Lymphocytes # 1.3 10^3/uL (0.8-4.8); Lymphocytes % 22.1 %; Mean Corpuscular HGB Conc 33.2 g/dL (30.0-36.0); Mean Corpuscular Hemoglobin 31.9 pg (28.0-34.0); Mean Corpuscular Volume 96.2 fl (80-94); Mean Platelet Volume 10.5 fL (7.4-10.4); Monocytes # 0.5 10^3/uL (0.2-0.9); Monocytes % 8.9 %; Neutrophils % 63.2 %; Nucleated Red Blood Cells % 0 %; Platelet Count 143 10^3/cmm (130-400); Red Cell Distribution Width 12.7 % (12.1-15.1); White Blood Count 5.7 10^3/uL (4.0-10.0)
[2022-08-18 15:35] LABS: Alanine Aminotransferase 27 U/L (0-41); Albumin Level 3.9 g/dL (3.5-5.2); Alkaline Phosphatase 79 U/L (40-130); Anion Gap 12.2 (5-19); Aspartate Amino Transferase 31 U/L (0-40); Blood Urea Nitrogen 17 mg/dL (8-23); Calcium 8.3 mg/dL (8.5-10.5); Carbon Dioxide 26 mmol/L (22-29); Chloride 107 mmol/L (98-107); Globulin 2.3 g/dL (1.3-4.6); Glucose 135 mg/dL (65-115); Osmolality Calculated 296 mOsm/kg (285-295); Potassium 4.2 mmol/L (3.5-5.1); Sodium 141 mmol/L (136-145); Total Protein 6.2 g/dL (6.6-8.7)
[2022-08-18 15:44] LABS: Creatinine Clr Calc Pharmacy 42.9596
[2022-08-18] MEDS: iohexol 350 mg/mL 500 mL Btl (per mL) IV (16:00)
[2022-08-18 16:33] VITALS: BP 136/71; PULSE 67; RESP 16; O2SAT 97
== END 2022-08-18 18:02 | disposition home or self-care (01) ==
PROVIDERS: Emergency Provider Emergency Medicine; PCP Family Medicine
DX: S70.12XA Contusion of left thigh, initial encounter (principal); K40.90 Unilateral inguinal hernia, without obstruction or gangrene, not specified as recurrent; I25.10 Atherosclerotic heart disease of native coronary artery without angina pectoris; I25.2 Old myocardial infarction; I10 Essential (primary) hypertension; V00.811A Fall from moving wheelchair (powered), initial encounter
CPT/HCPCS: 36415; 74177; 80053; 85025; 99285; Q9967

== ENCOUNTER 2023-06-13 19:15 | Emergency (ER) | payer MEDICARE, SELFPAY ==
--- NOTE | 2023-06-13 19:17 | ECG_ITS ---
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 Measurements Intervals [place] Rate: 77 P: 46 SC: 175 QRS: -61 QRSD: 145 T: -9 QT: 408 QTc: 462 Interpretive Statements SINUS RHYTHM POSSIBLE LEFT ATRIAL ENLARGEMENT [-0.1mV P-WAVE IN V1/V2] INDETERMINATE AXIS RIGHT BUNDLE BRANCH BLOCK [120+ ms QRS DURATION, UPRIGHT V1, 40+ ms S IN I/aVL/V4/V5/V6] Compared to ECG 05/19/2022 21:48:00 No significant changes Electronically Signed On 06-14-2023 22:56:08 CDT by Saloni Hoyt M.D. [id number] f
--- NOTE | 2023-06-13 19:17 | XRR_ITS ---
PROCEDURE INFORMATION: Exam: XR Chest Exam date and time: 06/13/2023 8:14 PM Age: 82 years old Clinical indication: Chest wall pain; Additional info: Cp TECHNIQUE: Imaging protocol: Radiologic exam of the chest. Views: 1 view. COMPARISON: CR XR chest 1V portable [id number] 05/19/2022 7:47 PM FINDINGS: Lungs: Minor streaky left basilar atelectasis in the costophrenic sulcus is unchanged from 05/19/2022. No consolidation. Pleural spaces: Unremarkable. No pleural effusion. No pneumothorax. Heart/Mediastinum: Stable borderline enlargement. Bones/joints: Unremarkable. XR/XR chest 1V portable [id number] IMPRESSION: No new plain radiographic abnormality since 05/19/2022. Stable borderline cardiomegaly and minor left basilar atelectasis.
[2023-06-13 19:18] VITALS: BP 138/80; PULSE 82; RESP 16; TEMP 36.4; O2SAT 92
--- NOTE | 2023-06-13 19:20 | ED_ITS ---
HPI - Chest Pain 2 General: Chief Complaint: Chest Pain Stated Complaint: CP Time Seen by Provider: 06/13/23 19:16 Source: patient Mode of arrival: ambulatory Limitations: no limitations History of Present Illness: Patient presents here with chest pain he states he started having pain at 4 PM he states since that pressure pain and having some nausea with that he had history of coronary artery disease with stents. He states he took nitros that did resolve his pain he is currently pain-free he denies any cough or fever or abdominal pain Associated symptoms: Deny abdominal pain, dyspnea, fever(s), nausea or vomiting Review of Systems 2 Const: Denies: fever(s), chills, body aches or change in appetite ENMT: Denies: throat pain or dental pain Card: Reports: chest pain Resp: Denies: dyspnea GI: Denies: abdominal pain, nausea, vomiting or diarrhea Musc: Denies: neck pain or back pain Skin/Breast: Denies: rash Neuro: Denies: headache(s) PFSH ED 2 PFSH: Medical History CAD (coronary artery disease) HTN (hypertension) Abnormal nuclear stress test half-way (current) use of opiate analgesic Pain management contract signed History of AR (myocardial infarction) 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 Surgical History History of appendectomy (~1974) History of cholecystectomy (~1979) History of rotator cuff surgery (~1996) Family History Father CAD (coronary artery disease) Myocardial infarction Other Hypertension Social History Smoking and tobacco/nicotine status: never used tobacco/nicotine Alcohol intake: never Substance/Drug Use: never Household members: spouse Marital status: Current occupational status: retired Physical Exam 2 Const: COMMON NORMALS: patient oriented x3 HENMT: COMMON NORMALS: normocephalic and atraumatic HEAD & SCALP: n ormocephalic and atraumatic Eye: COMMON NORMALS: Equal, round and reactive pupils present and EOMs intact bilaterally PUPIL: Yes Equal, round and reactive pupils present Neck/C-Spine: COMMON NORMALS: full ROM and supple Chest: COMMONS NORMALS: normal inspection of the chest and normal palpation of entire chest wall Resp: COMMON NORMALS: normal respiratory effort, No retractions, No use of accessory muscles and clear to auscultation bilaterally AUSCULTATION: clear to auscultation bilaterally Cardio: COMMON NORMALS: regular rate, regular rhythm and No murmurs present (Cardio) RATE: regular rate RHYTHM: regular rhythm GI: COMMON NORMALS: Normal to inspection, nondistended, normoactive bowel sounds present, Soft to palpation, non-tender and no masses PALPATION: Yes Soft to palpation Extremity: COMMON NORMALS: normal to inspection and full ROM Neuro: COMMON NORMALS: patient oriented x3, moves all extremities and no focal motor deficits Psych: COMMON NORMALS: mental status grossly normal, Normal thought process present and cooperative THOUGHT PROCESS: Normal thought process present Skin: COMMON NORMALS: no rashes or lesions noted and no wounds GENERAL SKIN EXAM: no rashes or lesions noted Course 2 Vital Signs: Vital signs: Vital Signs Temperature 97.6 F 06/13/23 19:18 Pulse Rate 71 06/13/23 21:30 Respiratory Rate 15 06/13/23 21:30 Blood Pressure 132/91 06/13/23 21:30 Pulse Oximetry 93 06/13/23 21:30 MDM - Chest Pain Medical Decision Making Patient presents here with chest pain he been well-appearing here with no pain his troponins here are negative he feels much improved like to go home I feel he is stable for discharge this time he is to follow-up with traditional chinese herbalist return if worsening. Medical Records I reviewed the patient's medical records. Lab Data I reviewed the patient's lab results. 06/13/23 19:30 06/13/23 19:30 Radiology Impressions Chest X-Ray 06/13/23 19:17 IMPRESSION: No new plain radiographic abnormality since 05/19/2022. Stable borderline cardiomegaly and minor left basilar atelectasis. Laboratory Results WBC 9.22 10^3/uL (3.29-11.43) 06/13/23 19:30 RBC 4.46 10^6/uL (3.85-5.65) 06/13/23 19:30 Hgb 14.20 g/dL (11.27-16.99) 06/13/23 19: Hct 42.2 % (37-53) 06/13/23 19: MCV 94.6 fl (82-101) 06/13/23 19: MCH 31.8 pg (27-33) 06/13/23 19: MCHC 33.6 g/dL (30-55) 06/13/23 19: RDW 13.6 % (12.1-15.1) 06/13/23: Plt Count 158 10^3/cmm (157-399) 06/13/23 19: MPV 10.5 fL (7.4-10.4) H 06/13/23 19: Neut % (Auto) 87.1 % 06/13/23 19: Lymph % (Auto) 7.7 % 06/13/23 19: [place] % (Auto) 4.3 % 06/13/23 19: Eos % (Auto) 0.2 % 06/13/23: Baso % (Auto) 0.4 % 06/13/23: Neut # (Auto) 8.02 10^3/uL (1.8-7.7) H 06/13/23: Lymph # (Auto) 0.7 10^3/uL (0.8-4.8) L 06/13/23 19: [place] # (Auto) 0.4 10^3/uL (0.2-0.9) 06/13/23 19: Eos # (Auto) 0.0 10^3/uL (0.0-0.8) 06/13/23: Baso # (Auto) 0.0 10^3/uL (0.0-0.1) 06/13/23: Nucleated RBC % (auto) 0 % 06/13/23 Nucleated RBCs # 0.0 /100WBC 06/13/23: PT 14.40 SECONDS (12.1-14.9) 06/13/23 19: INR 1.09 (0.8-1.2) 06/13/23: Sodium 140 mmol/L (136-145) 06/13/23: Potassium 3.9 mmol/L (3.5-5.1) 06/13/23 19:30 Chloride 106 mmol/L (98-107) 06/13/23 19:30 Carbon Dioxide 21 mmol/L (22-29) L 06/13/23 19:30 Anion Gap 16.9 (5-19) 06/13/23 19:30 BUN 21 mg/dL (8-23) 06/13/23 19:30 Creatinine 1.4 mg/dL (0.7-1.2) H 06/13/23 19:30 GFR Calculation Not Reportable 06/13/23 19:30 Glucose 217 mg/dL (65-115) H 06/13/23 19:30 Calculated Osmolality 300 mOsm/kg (285-295) H 06/13/23 19:30 Calcium 8.3 mg/dL (8.5-10.5) L 06/13/23 19:30 Total Bilirubin 0.5 mg/dL (0.15-1.2) 06/13/23 19:30 AST 23 U/L (0-40) 06/13/23 19:30 ALT 14 U/L (0-41) 06/13/23 19:30 Alkaline Phosphatase 98 U/L (40-130) 06/13/23 19:30 Troponin T Baseline 22 ng/L (0-15) H 06/13/23 19:30 Troponin T 120 Minute 22.24 ng/L (0-15) H 06/13/23 21:12 Delta Troponin T 0.24 ABS# (0-10) 06/13/23 21:12 Total Protein 6.8 g/dL (6.6-8.7) 06/13/23 19:30 Albumin 4.2 g/dL (3.5-5.2) 06/13/23 19:30 Globulin 2.6 g/dL (1.3-4.6) 06/13/23 19:30 Lipase 22 U/L (13-60) 06/13/23 19:30 All radiology interpretation(s) finalized by discharge EKG Data EKG 1: I personally reviewed and interpreted this EKG as follows: EKG interpretation date: 06/13/23 EKG interpretation time: 19:21 Interpretation: nsr hr [address] elevation qrs 145 qtc 439 no acute change Discharge Plan Discharge Patient Disposition: Home Clinical Impression: Chest pain Condition: Stable Prescriptions: No Action ozuopckgilgx-tysmtwgm-qvzuxu Tablet 1 tab PO DAILY sertraline 100 mg tablet 100 mg PO DAILY hydrocodone-acetaminophen 5-325 mg tablet 1 tab PO Q4H PRN (Reason: Pain) amlodipine 5 mg tablet 5 mg PO DAILY Qty: 90 3RF pravastatin 40 mg tablet 40 mg PO DAILY meloxicam 15 mg tablet 15 mg PO DAILY losartan 50 mg tablet 25 mg PO DAILY loperamide 2 mg capsule 2 mg PO PRN promethazine 25 mg tablet 25 mg PO PRN levothyroxine 25 mcg Tablet 25 mcg PO DAILY Vitamin B-12 250 mcg Tablet 250 mcg PO DAILY hydrocodone-acetaminophen 5-325 mg tablet 1 tab PO Q8H PRN (Reason: pain) Qty: 14 0RF Discharge Orders: Discharge ED (Routine); Ordered 06/13/23 Ordered By: Vika Swartz Referrals: Arron Chase M.D [Physician] - 1-3 days Augustina Lopez DO [Primary Care Provider] - Discharge Diet: Advance as tolerated Discharge Activity: Resume usual activity Patient Instructions: Chest Pain (ED) Coding Level of Care Code ED Supervisor [place] [employer] [place] for Abdi Dawson
[2023-06-13 19:32] VITALS: BP 122/86; PULSE 77; RESP 14; O2SAT 95
[2023-06-13 19:46] LABS: Basophils % 0.4 %; Eosinophils % 0.2 %; Hematocrit 42.2 % (37-53); INR 1.09 (0.8-1.2); Lymphocytes # 0.7 10^3/uL (0.8-4.8); Lymphocytes % 7.7 %; Mean Corpuscular HGB Conc 33.6 g/dL (30-55); Mean Corpuscular Hemoglobin 31.8 pg (27-33); Mean Corpuscular Volume 94.6 fl (82-101); Mean Platelet Volume 10.5 fL (7.4-10.4); Monocytes # 0.4 10^3/uL (0.2-0.9); Monocytes % 4.3 %; Neutrophils # 8.02 10^3/uL (1.8-7.7); Neutrophils % 87.1 %; Nucleated Red Blood Cells % 0 %; Platelet Count 158 10^3/cmm (157-399); Red Blood Count 4.46 10^6/uL (3.85-5.65); Red Cell Distribution Width 13.6 % (12.1-15.1); White Blood Count 9.22 10^3/uL (3.29-11.43)
[2023-06-13 19:54] LABS: Troponin(5th) Baseline 22 ng/L (0-15)
[2023-06-13 19:55] LABS: Alanine Aminotransferase 14 U/L (0-41); Albumin Level 4.2 g/dL (3.5-5.2); Alkaline Phosphatase 98 U/L (40-130); Anion Gap 16.9 (5-19); Aspartate Amino Transferase 23 U/L (0-40); Blood Urea Nitrogen 21 mg/dL (8-23); Calcium 8.3 mg/dL (8.5-10.5); Carbon Dioxide 21 mmol/L (22-29); Chloride 106 mmol/L (98-107); Creatinine Clr Calc Pharmacy 43.6682; Globulin 2.6 g/dL (1.3-4.6); Glucose 217 mg/dL (65-115); Lipase 22 U/L (13-60); Osmolality Calculated 300 mOsm/kg (285-295); Potassium 3.9 mmol/L (3.5-5.1); Sodium 140 mmol/L (136-145); Total Bilirubin 0.5 mg/dL (0.15-1.2); Total Protein 6.8 g/dL (6.6-8.7)
[2023-06-13 20:00] VITALS: BP 125/74; PULSE 80; RESP 16; O2SAT 96
[2023-06-13 20:48] VITALS: BP 133/82; PULSE 73; RESP 18; O2SAT 94
[2023-06-13 21:11] VITALS: BP 135/90; PULSE 60; RESP 18; O2SAT 95
--- NOTE | 2023-06-13 21:17 | ECG_ITS ---
[facility] Test Date: 2023-06-13 Pat Name: Gurpreet Lang Department: Room: Gender: Male Underwriting Assistant: : 1940 Requested By: Vika Swartz Order Number: [id number] Reading MD: Saloni Hoyt M.D. Measurements Intervals [place] Rate: 64 P: 13 DC: 171 QRS: 235 QRSD: 145 T: -6 QT: 417 QTc: 432 Interpretive Statements SINUS RHYTHM INDETERMINATE AXIS RIGHT BUNDLE BRANCH BLOCK [120+ ms QRS DURATION, UPRIGHT V1, 40+ ms S IN I/aVL/V4/V5/V6] Compared to ECG 06/13/2023 19:21:03 No significant changes Electronically Signed On 06-14-2023 23:10:21 CDT by Saloni Hoyt M.D. [email or web address] medical [id number]
[2023-06-13 21:30] VITALS: BP 132/91; PULSE 71; RESP 15; O2SAT 93
[2023-06-13 21:46] LABS: Troponin 5 2HR 22.24 ng/L (0-15); Troponin 5 2HR Delta 0.24 ABS# (0-10)
--- NOTE | 2023-06-16 08:21 | DCPLANNER ---
Sent followup for cardiology
== END 2023-06-13 22:08 | disposition home or self-care (01) ==
PROVIDERS: Emergency Provider Emergency Medicine; PCP Family Medicine
DX: R07.9 Chest pain, unspecified (principal); I25.10 Atherosclerotic heart disease of native coronary artery without angina pectoris; I10 Essential (primary) hypertension; I25.2 Old myocardial infarction
CPT/HCPCS: 36415; 71045; 80053; 83690; 84484; 85025; 85610; 93005; 99285

== ENCOUNTER → 2023-10-04 11:10 | Outpatient (BNVA) | payer MEDICARE, SELFPAY | PROVIDERS: PCP Family Medicine; Visit Provider Internal Medicine Cardiovascular Disease | DX: I25.118 Atherosclerotic heart disease of native coronary artery with other forms of angina pectoris (principal); I10 Essential (primary) hypertension; E78.5 Hyperlipidemia, unspecified | CPT/HCPCS: 99214 ==

== ENCOUNTER 2024-05-29 00:27 | Inpatient (IN) | payer MEDICARE, SELFPAY ==
[2024-05-29] VITALS (29 sets, daily range): BP systolic 112–162; BP diastolic 71–100; PULSE 55–109; RESP 14–25; TEMP 36.8–37.3; O2SAT 87–96; BMI 29.6
--- NOTE | 2024-05-29 00:41 | XRR_ITS ---
PROCEDURE INFORMATION: Exam: XR Chest Exam date and time: 05/29/2024 1:32 AM Age: 83 years old Clinical indication: Fever and shortness of breath; Additional info: Near syncope, nausea TECHNIQUE: Imaging protocol: Radiologic exam of the chest. Views: 1 view. COMPARISON: CR (CHEST, ) 06/13/2023 8:14 PM FINDINGS: Lungs: No consolidation. Similar prominent right pericardial fat pad. Pleural spaces: No pleural effusion. No pneumothorax. Heart/Mediastinum: Stable cardiac contour. Bones/joints: No acute findings. XR/XR chest 1V portable [id number] IMPRESSION: No acute findings.
--- NOTE | 2024-05-29 00:43 | ECG_ITS ---
[facility] Date: 2024-05-29 Pat Name: Gurpreet Lang Department: Room: [facility] Gender: Male Finance Attorney: : 1940 Requested By: Manish Wei Order Number: [id number] Sonia MD: Saloni Hoyt M.D. Measurements Intervals [place] Rate: 92 P: 64 MN: 126 QRS: -44 QRSD: 161 T: 30 QT: 409 QTc: 506 Interpretive Statements SINUS RHYTHM INDETERMINATE AXIS RIGHT BUNDLE BRANCH BLOCK [120+ ms QRS DURATION, UPRIGHT V1, 40+ ms S IN I/aVL/V4/V5/V6] Compared to ECG 06/13/2023 21:20:41 No significant changes Electronically Signed On 05-30-2024 08:54:07 CDT by Saloni Hoyt M.D. [id number]
[2024-05-29] MEDS: ondansetron 2 mg/ML SDV 2 mL 4 MG IVP (01:00)
[2024-05-29] MEDS: sodium chloride 0.9% 1,000 ML 999 ML IV (01:00)
--- NOTE | 2024-05-29 01:12 | W.ED.NAVMDI ---
HPI - Nausea/Vomiting/Diarrhea General: Chief complaint: Nausea/Vomiting/Diarrhea Stated complaint: n/v Time Seen by Provider: 05/29/24 00:40 History of Present Illness: Patient is a well-appearing 83-year-old male from home seen for lightheadedness and nausea which came on suddenly. He states that this feels similar to when he had a heart attack and required stents to be placed, however at that time he did have chest pressure as well. Today there is no chest pressure or pain of any sort or shortness of breath associated with the symptoms. He denies recent sickness, flu, fever, cough, and has not vomited though he does feel nauseated. Symptoms came on at rest. Related Data Home Medications ?Medication ?Instructions ?Recorded ?Confirmed lbhkntnhhshn-hkjqmyzx-ihzfnh tablet 1 tab PO DAILY 07/18/19 02/16/22 loperamide 2 mg capsule 2 mg PO PRN 07/27/21 02/16/22 promethazine 25 mg tablet 25 mg PO PRN 07/27/21 02/16/22 sertraline 100 mg tablet 100 mg PO DAILY 11/01/21 02/16/22 cyanocobalamin (vitamin B-12) 250 250 mcg PO DAILY 01/24/22 02/16/22 mcg tablet (Vitamin B-12) levothyroxine 25 mcg tablet 25 mcg PO DAILY 01/24/22 02/16/22 losartan 50 mg tablet 25 mg PO DAILY 02/16/22 meloxicam 15 mg tablet 15 mg PO DAILY 02/16/22 02/16/22 pravastatin 40 mg tablet 40 mg PO DAILY 02/16/22 02/16/22 Previous Rx's ?Medication ?Instructions ?Recorded amlodipine 5 mg tablet 5 mg PO DAILY #90 tabs 11/01/21 hydrocodone 5 mg-acetaminophen 325 1 tab PO Q8H PRN pain #14 tabs 08/18/22 mg tablet Allergies Allergy/AdvReac Type Severity Reaction Status Date / Time codeine Allergy Unknown diaphretic Verified 10/04/23 11:37 hydromorphone (From Dilaudid) Allergy Unknown rash Verified 10/04/23 11:37 Sulfa (Sulfonamide Allergy Unknown unknown Verified 10/04/23 11:37 Antibiotics) [facility] ED PFSH: Medical History CAD (coronary artery disease) HTN (hypertension) Abnormal nuclear stress test assisted (current) use of opiate analgesic Pain management contract signed History of [place] (myocardial infarction) 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 Surgical History History of appendectomy (~1974) History of cholecystectomy (~1979) History of rotator cuff surgery (~1996) Family History Father CAD (coronary artery disease) Myocardial infarction Other Hypertension Social History Smoking and tobacco/nicotine status: never used tobacco/nicotine Alcohol intake: never Substance/Drug Use: never Household members: spouse Marital status: Current occupational status: retired Physical Exam Const: COMMON NORMALS: no acute distress, patient oriented x3 and alert HENMT: COMMON NORMALS: normocephalic and atraumatic HEAD & SCALP: normocephalic and atraumatic Eye: COMMON NORMALS: Equal, round and reactive pupils present, EOMs intact bilaterally and no scleral icterus PUPIL: Yes Equal, round and reactive pupils present Resp: COMMON NORMALS: normal respiratory effort and No retractions Cardio: COMMON NORMALS: regular rate, regular rhythm and No murmurs present (Cardio) RATE: regular rate RHYTHM: regular rhythm GI: COMMON NORMALS: Normal to inspection, nondistended, normoactive bowel sounds present, Soft to palpation and non-tender PALPATION: Yes Soft to palpation Neuro: COMMON NORMALS: patient oriented x3 SENSORIUM/ORIENTATION: Yes alert Skin: COMMON NORMALS: no rashes or lesions noted GENERAL SKIN EXAM: no rashes or lesions noted Course Vital Signs: Vital signs: Vital Signs Pulse Rate 69 05/29/24 03:11 Respiratory Rate 18 05/29/24 00:28 Blood Pressure 141/78 05/29/24 03:11 Pulse Oximetry 90 05/29/24 02:09 Oxygen Delivery Me thod Room Air 05/29/24 00:28 MDM - Nausea/Vomiting/Diarrhea Medical Decision Making In summary, patient is a well-appearing 83-year-old male seen for nausea and lightheadedness. At no point in time has he felt any chest pain while in the emergency department or prior to coming. EKG does not show ST segment elevation or depression. Lightheadedness has largely resolved. He has no dizziness. Initial troponin was within normal limits but 2-hour troponin did rise slightly. I am uncertain whether this is caused by a small NSTEMI or if the low flow state associated with his lightheadedness may have caused a slight leak of troponin. Regardless, he will be admitted to the hospital service for further trending of troponin. Patient is agreeable to the plan. Lab Data 05/29/24 01:02 05/29/24 01:02 Radiology Impressions Chest X-Ray 05/29/24 00:41 IMPRESSION: No acute findings. Laboratory Results WBC 9.25 10^3/uL (3.29-11.43) 05/29/24 01:02 RBC 4.71 10^6/uL (3.85-5.65) 05/29/24 01:02 Hgb 15.20 g/dL (11.27-16.99) 05/29/24 01:02 Hct 45.6 % (37-53) 05/29/24 01:02 MCV 96.8 fl (82-101) 05/29/24 01:02 MCH 32.3 pg (27-33) 05/29/24 01:02 MCHC 33.3 g/dL (30-55) 05/29/24 01:02 RDW 12.4 % (12.1-15.1) 05/29/24 01:02 Plt Count 154 10^3/cmm (157-399) L 05/29/24 01:02 MPV 11.5 fL (7.4-10.4) H 05/29/24 01:02 Neut % (Auto) 66.4 % 05/29/24 01:02 Lymph % (Auto) 23.6 % 05/29/24 01:02 [place] % (Auto) 6.8 % 05/29/24 01:02 Eos % (Auto) 2.3 % 05/29/24 01:02 Baso % (Auto) 0.6 % 05/29/24 01:02 Neut # (Auto) 6.14 10^3/uL (1.8-7.7) 05/29/24 01:02 Lymph # (Auto) 2.2 10^3/uL (0.8-4.8) 05/29/24 01:02 [place] # (Auto) 0.6 10^3/uL (0.2-0.9) 05/29/24 01:02 Eos # (Auto) 0.2 10^3/uL (0.0-0.8) 05/29/24 01:02 Baso # (Auto) 0.1 10^3/uL (0.0-0.1) 05/29/24 01:02 Nucleated RBC % (auto) 0 % 05/29/24 01:02 Nucleated RBCs # 0.0 /100WBC 05/29/24 01:02 Sodium 144 mmol/L (136-145) 05/29/24 01:02 Potassium 3.6 mmol/L (3.5-5.1) 05/29/24 01:02 Chloride 108 mmol/L (98-107) H 05/29/24 01:02 Carbon Dioxide 20 mmol/L (22-29) L 05/29/24 01:02 Anion Gap 19.6 (5-19) H 05/29/24 01:02 BUN 18 mg/dL (8-23) 05/29/24 01:02 Creatinine 1.3 mg/dL (0.7-1.2) H 05/29/24 01:02 GFR Calculation Not Reportable 05/29/24 01:02 Glucose 245 mg/dL (65-115) H 05/29/24 01:02 Calculated Osmolality 308 mOsm/kg (285-295) H 05/29/24 01:02 Calcium 8.5 mg/dL (8.5-10.5) 05/29/24 01:02 Total Bilirubin 0.5 mg/dL (0.15-1.2) 05/29/24 01:02 AST 21 U/L (0-40) 05/29/24 01:02 ALT 13 U/L (0-41) 05/29/24 01:02 Alkaline Phosphatase 127 U/L (40-130) 05/29/24 01:02 Troponin T Baseline 12 ng/L (0-15) 05/29/24 01:02 Troponin T 120 Minute 17.58 ng/L (0-15) H 05/29/24 03:21 Delta Troponin T 5.58 ABS# (0-10) 05/29/24 03:21 Total Protein 6.5 g/dL (6.6-8.7) L 05/29/24 01:02 Albumin 4.2 g/dL (3.5-5.2) 05/29/24 01:02 Globulin 2.3 g/dL (1.3-4.6) 05/29/24 01:02 Lipase 22 U/L (13-60) 05/29/24 01:02 All radiology interpretation(s) finalized by discharge EKG Data EKG 1: Interpretation: Time?42?sinus rhythm with left bundle branch block pattern, negative Sgarbossa criteria, QTc = 458. Discharge Plan Discharge Condition: Stable Prescriptions: No Action gyjhbpoehmwr-wkrlkvxz-vbuncw Tablet 1 tab PO DAILY sertraline 100 mg tablet 100 mg PO DAILY amlodipine 5 mg tablet 5 mg PO DAILY Qty: 90 3RF pravastatin 40 mg tablet 40 mg PO DAILY meloxicam 15 mg tablet 15 mg PO DAILY losartan 50 mg tablet 25 mg PO DAILY loperamide 2 mg capsule 2 mg PO PRN promethazine 25 mg tablet 25 mg PO PRN levothyroxine 25 mcg Tablet 25 mcg PO DAILY Vitamin B-12 250 mcg Tablet 250 mcg PO DAILY hydrocodone-acetaminophen 5-325 mg tablet 1 tab PO Q8H PRN (Reason: pain) Qty: 14 0RF Referrals: Augustina Lopez DO [Primary Care Provider] - Print Language: Georgian Coding Level of Care Code ED Director Oncology for Ch[facility] Samir
[2024-05-29 01:31] LABS: Troponin(5th) Baseline 12 ng/L (0-15)
[2024-05-29 01:32] LABS: Alanine Aminotransferase 13 U/L (0-41); Albumin Level 4.2 g/dL (3.5-5.2); Alkaline Phosphatase 127 U/L (40-130); Aspartate Amino Transferase 21 U/L (0-40); Blood Urea Nitrogen 18 mg/dL (8-23); Calcium 8.5 mg/dL (8.5-10.5); Carbon Dioxide 20 mmol/L (22-29); Chloride 108 mmol/L (98-107); Creatinine Clr Calc Pharmacy 47.3545; Globulin 2.3 g/dL (1.3-4.6); Glucose 245 mg/dL (65-115); Lipase 22 U/L (13-60); Osmolality Calculated 308 mOsm/kg (285-295); Sodium 144 mmol/L (136-145); Total Bilirubin 0.5 mg/dL (0.15-1.2); Total Protein 6.5 g/dL (6.6-8.7)
[2024-05-29 01:34] LABS: Anion Gap 19.6 (5-19); Potassium 3.6 mmol/L (3.5-5.1)
[2024-05-29 03:37] LABS: Basophils # 0.1 10^3/uL (0.0-0.1); Basophils % 0.6 %; Eosinophils # 0.2 10^3/uL (0.0-0.8); Eosinophils % 2.3 %; Hematocrit 45.6 % (37-53); Lymphocytes # 2.2 10^3/uL (0.8-4.8); Lymphocytes % 23.6 %; Mean Corpuscular HGB Conc 33.3 g/dL (30-55); Mean Corpuscular Hemoglobin 32.3 pg (27-33); Mean Corpuscular Volume 96.8 fl (82-101); Mean Platelet Volume 11.5 fL (7.4-10.4); Monocytes # 0.6 10^3/uL (0.2-0.9); Monocytes % 6.8 %; Neutrophils # 6.14 10^3/uL (1.8-7.7); Neutrophils % 66.4 %; Nucleated Red Blood Cells % 0 %; Platelet Count 154 10^3/cmm (157-399); Red Blood Count 4.71 10^6/uL (3.85-5.65); Red Cell Distribution Width 12.4 % (12.1-15.1); White Blood Count 9.25 10^3/uL (3.29-11.43)
[2024-05-29 03:47] LABS: Troponin 5 2HR 17.58 ng/L (0-15); Troponin 5 2HR Delta 5.58 ABS# (0-10)
--- NOTE | 2024-05-29 05:03 | USCV_ITS ---
Gurpreet Lang Age: 83 Gender: M : 1940 Exam Date: 05/29/2024 09:43 Ordering Phys: Brock Ro MD Technologist: Exam Location: [facility] [place] Indication: cp sob BP: / HR: 66 Rhythm: Sinus Technical Quality: Adequate MEASUREMENTS (Male / Female) Normal Values 2D ECHO LV Diastolic Diameter PLAX 4.8 cm 4.2 - 5.9 / 3.9 - 5.3 cm IVS Diastolic Thickness 1.3 cm 0.6 - 1.0 / 0.6 - 0.9 cm IVS Systolic Thickness 1.9 cm LVPW Diastolic Thickness 1.2 cm 0.6 - 1.0 / 0.6 - 0.9 cm LVPW Systolic Thickness 1.5 cm LVOT Diameter 2.1 cm LV Ejection Fraction 2D Teich 59.3 % LV Ejection Fraction MOD 4C 62.4 % LV Ejection Fraction MOD 2C 70.4 % LV Ejection Fraction 2C AL 72.6 % LA Diameter 3.2 cm RA Systolic Volume 4C AL 50.5 ml RA Systolic Volume 4C MOD 47.5 ml Aorta at Sinotubular Diameter 3.4 cm M-MODE LA Ao Ratio MM 0.9 AV Cusp Separation MM 2.2 cm DOPPLER AV Peak Velocity 135.7 cm/s LVOT Peak Velocity 94.0 cm/s AV Area Cont Eq vti 2.8 cm squared AV Area Cont Eq pk 2.3 cm squared MV Peak Velocity 107.0 cm/s MV Area PHT 2.5 cm squared Mitral E to A Ratio 0.8 TR Peak Velocity 305.0 cm/s TR Peak Gradient 37.2 mmHg PV Peak Velocity 107.0 cm/s FINDINGS Left Ventricle Normal left ventricular size and systolic function, EF 62%.. Mild left ventricular hypertrophy. Grade I/IV diastolic dysfunction (abnormal relaxation filling pattern), normal to mildly elevated filling pressures. Right Ventricle The right ventricle is normal in size and function. Right Atrium The right atrium is normal in size. Left Atrium The left atrium is normal in size. Mitral Valve No gross abnormalities noted Aortic Valve Trace aortic valve regurgitation. Thickened aortic valve. Tricuspid Valve Trace to mild tricuspid valve regurgitation. Pulmonic Valve Pulmonic valve not well visualized. Pericardium No pericardial effusion. Aorta Normal aortic annulus size. IVC The inferior vena cava appears normal. CONCLUSIONS Normal left ventricular size and systolic function, EF 62%.. Mild left ventricular hypertrophy. Grade I/IV diastolic dysfunction (abnormal relaxation filling pattern), normal to mildly elevated filling pressures. Trace aortic valve regurgitation. Thickened aortic valve. Trace to mild tricuspid valve regurgitation. Estimated pulmonary artery peak systolic pressure 40 mmHg There is no pericardial effusion. There are no intracardiac masses. Compared to the study from 01/24/2022, there may not be a significant change Dr Saloni Hoyt MD [facility] (Electronically Signed) Final Date: 29 May 2024 21:50 S
--- NOTE | 2024-05-29 05:09 | PM.HP ---
Providers/Chief Complaint Primary Care Provider: Augustina Lopez DO Chief Complaint: n/v History of Present Illness Gurpreet Lang is a 83 year old male history of CAD, status post stenting, hypertension, hyperlipidemia, who presents to [facility] for dizziness and nausea. According to patient at about 1030 today, he was in the shower, when he stepped out of the shower he had a sudden onset of dizziness, no vertigo but dizziness enough that he needed to use a guardrails to ambulate out of the shower, he needed support to ambulate to get to the bed, he had persistent dizziness, felt nauseous, no blurry vision, no focal weakness, no paresthesias, no facial droop, no slurring of words, he called his daughter over, he had persistent dizziness and nausea, he took a Phenergan, no facial droop little slurring of his words, no focal weakness, no blurry vision, but due to persistent dizziness he has prior history of CAD associated with dizziness, EMS was called, but he denies any chest pain, denies any shortness of breath, on arrival to the ED, EKG no acute ST-T wave changes his baseline troponin was 12, 121 and 17.58, denies any active chest pain, he has nausea has resolved his dizziness is almost completely resolved, no word finding difficulty, no slurred words, no focal weakness, NIH stroke scale during my assessment is 2, he tells me he is legally blind in his right eye so he has issues with depth perception, but his spbtvf-fa-krgb is abnormal bilaterally Review of Systems Const: Denies: fever(s) Eyes: Denies: change in vision Card: Denies: chest pain Resp: Denies: dyspnea GI: Denies: abdominal pain Neuro: Reports: difficulty walking and dizziness; Denies: headache(s), numbness in extremities, weakness in extremities, lack of coordination, frequent falls, vertigo, confusion, Slurred speech present or difficulty communicating thoughts Medications/Allergies Home Medications ?Medication ?Instructions ?Recorded ?Confirmed ?Last Taken ?Type beswkwjuwqbh-ajvgtrdt-arszci tablet 1 tab PO DAILY 07/18/19 02/16/22 01/24/22 History loperamide 2 mg capsule 2 mg PO PRN 07/27/21 02/16/22 01/24/22 History promethazine 25 mg tablet 25 mg PO PRN 07/27/21 02/16/22 07/24/21 History amlodipine 5 mg tablet 5 mg PO DAILY #90 tabs 11/01/21 02/16/22 01/24/22 Rx sertraline 100 mg tablet 100 mg PO DAILY 11/01/21 02/16/22 01/23/22 History cyanocobalamin (vitamin B-12) 250 250 mcg PO DAILY 01/24/22 02/16/22 01/24/22 History mcg tablet (Vitamin B-12) levothyroxine 25 mcg tablet 25 mcg PO DAILY 01/24/22 02/16/22 01/24/22 History losartan 50 mg tablet 25 mg PO DAILY 02/16/22 Unknown History meloxicam 15 mg tablet 15 mg PO DAILY 02/16/22 02/16/22 Unknown History pravastatin 40 mg tablet 40 mg PO DAILY 02/16/22 02/16/22 Unknown History hydrocodone 5 mg-acetaminophen 325 1 tab PO Q8H PRN pain #14 tabs 08/18/22 Unknown Rx mg tablet Allergies Allergy/AdvReac Type Severity Reaction Status Date / Time codeine Allergy Unknown diaphretic Verified 10/04/23 11:37 hydromorphone (From Dilaudid) Allergy Unknown rash Verified 10/04/23 11:37 Sulfa (Sulfonamide Allergy Unknown unknown Verified 10/04/23 11:37 Antibiotics) PFSH Acute PFSH: Medical History CAD (coronary artery disease) HTN (hypertension) Abnormal nuclear stress test assisted (current) use of opiate analgesic Pain management contract signed History of LA (myocardial infarction) 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 Surgical History History of appendectomy (~1974) History of cholecystectomy (~1979) History of rotator cuff surgery (~1996) Family History Father CAD (coronary artery disease) Myocardial infarction Other Hypertension Social History Smoking and tobacco/nicotine status: never used tobacco/nicotine Alcohol intake: never Substance/Drug Use: never Household members: spouse Marital status: Current occupational status: retired Vitals/I&O/Wt Last Vital Signs Pulse 80 05/29/24 04:52 Resp 18 05/29/24 00:28 BP 162/97 05/29/24 04:52 Pulse Ox 92 05/29/24 04:52 O2 Del Method Room Air 05/29/24 00:28 05/28/24 05/28/24 05/29/24 14:59 22:59 06:59 Intake Total 1000 / 1000 Balance 1000 / 1000 Weight last 48 hrs Weight 88.451 kg Physical Exam Const: COMMON NORMALS: no acute distress and patient oriented x3 Eye: COMMON NORMALS: Equal, round and reactive pupils present and EOMs intact bilaterally Resp: COMMON NORMALS: normal respiratory effort, No retractions, No use of accessory muscles and clear to auscultation bilaterally AUSCULTATION: clear to auscultation bilaterally Cardio: COMMON NORMALS: no JVD, regular rate, regular rhythm, S1 normal heart sound present and S2 normal heart sound present RATE: regular rate RHYTHM: regular rhythm HEART SOUNDS: S1 normal heart sound present and S2 normal heart sound present GI: COMMON NORMALS: Normal to inspection, nondistended, normoactive bowel sounds present, Soft to palpation and non-tender Extremity: COMMON NORMALS: no pedal edema Neuro: COMMON NORMALS: patient oriented x3, CN's II-XII intact bilaterally, moves all extremities and no focal motor deficits OTHER: NIH stroke scale 2, maeube-sl-mhig, xkkg-dm-hbhc, abnormal bilaterally Psych: COMMON NORMALS: mental status grossly normal Data 05/29/24 01:02 05/29/24 01:02 A&P Assessment and plan (1) TIA (transient ischemic attack): (2) Dizziness: (3) CVA (cerebral vascular accident): Plan Dizziness - Positive cerebellar signs - Concerns for CVA versus TIA - NIH stroke scale 2 - Patient is out of window for tPA Plan - CTA head and neck, CT head ordered - Aspirin 81 mg - Atorvastatin - Will allow for permissive hypertension - PT OT - Speech therapy eval - Dysphagia eval - Telemetry monitoring - Cardiac echo - Patient is a DNR, okay with elective intubation if required - Lovenox for DVT prophylaxis Elevated troponins - 120-minute 17.58 - No active chest pain - Serial EKGs, start troponins, telemetry monitoring - Aspirin, statin PDMP PDMP Reviewed: Not Reviewed Attestations Medical Necessity Statement*: Patient requires hospitalization, inpatient, greater than 2 midnights, for dizziness concerns for TIA versus stroke, elevated troponin Diagnoses TIA (transient ischemic attack) G45.9 Dizziness R42 CVA (cerebral vascular accident) I63.9
--- NOTE | 2024-05-29 05:19 | CTR_ITS ---
PROCEDURE INFORMATION: Exam: CTA Head Without And With Contrast, Arteriography Exam date and time: 05/29/2024 4:59 AM Age: 83 years old Clinical indication: Dizziness and giddiness; Additional info: Lightheadedness, concern for posterior stroke TECHNIQUE: Imaging protocol: Computed tomographic angiography of the head without and with contrast. Exam focused on the arteries. 3D rendering (Not supervised by radiologist): MIP and/or 3D reconstructed images were created by the technologist. Radiation optimization: All CT scans at this facility use at least one of these dose optimization techniques: automated exposure control; mA and/or kV adjustment per patient size (includes targeted exams where dose is matched to clinical indication); or iterative reconstruction. Contrast material: OMNI 350; Contrast volume: 100 ml; Contrast route: INTRAVENOUS (IV); COMPARISON: No relevant prior studies available. RADIATION DOSE METRICS: Total DLP (mGy-cm): 1196.64 FINDINGS: ANTERIOR CIRCULATION: Right internal carotid artery: Intracranial segment is patent with no significant stenosis. No aneurysm. Right middle cerebral artery: No occlusion or significant stenosis. No aneurysm. Right anterior cerebral artery: No occlusion or significant stenosis. No aneurysm. Left internal carotid artery: Intracranial segment is patent with no significant stenosis. No aneurysm. Left middle cerebral artery: No occlusion or significant stenosis. No aneurysm. Left anterior cerebral artery: No occlusion or significant stenosis. No aneurysm. POSTERIOR CIRCULATION: Right vertebral artery: Patent enhancing small caliber nondominant distal right vertebral artery without significant stenosis. No occlusion. No aneurysm. Left vertebral artery: Dominant distal left vertebral artery with severe V4 segment stenosis. No occlusion. No aneurysm. Basilar artery: No occlusion or significant stenosis. No aneurysm. Right posterior cerebral artery: Right posterior cerebral artery receiving contribution from both anterior and posterior circulation. No occlusion or significant stenosis. No aneurysm. Left posterior cerebral artery: Anatomic variant left persistent circulation with hypoplastic left posterior cerebral artery P1 segment and left posterior cerebral artery filling via the anterior circulation. No occlusion or significant stenosis. No aneurysm. HEAD: Brain: Prominence of the sulci consistent with diffuse atrophy. No mass effect or midline shift. Periventricular and subcortical white matter low-attenuation consistent with chronic small vessel ischemic changes. No evidence of acute intracranial hemorrhage. Cerebral ventricles: Ventricular prominence proportional to sulci. No hydrocephalus. Bones: Unremarkable. No acute fracture. Paranasal sinuses: No significant or acute findings. No air fluid levels. Mastoid air cells: No acute abnormality. No significant mastoid effusion. Soft tissues: No significant soft tissue abnormalities. PROCEDURE INFORMATION: Exam: CTA Neck With Contrast Exam date and time: 05/29/2024 4:59 AM Age: 83 years old Clinical indication: Dizziness and giddiness; Additional info: Lightheadedness, concern for posterior stroke TECHNIQUE: Imaging protocol: Computed tomographic angiography of the neck with contrast. Exam focused on the cervical segments of the vasculature. 3D rendering (Not supervised by radiologist): MIP and/or 3D reconstructed images were created by the technologist. Radiation optimization: All CT scans at this facility use at least one of these dose optimization techniques: automated exposure control; mA and/or kV adjustment per patient size (includes targeted exams where dose is matched to clinical indication); or iterative reconstruction. Contrast material: OMNI 350; Contrast volume: 100 ml; Contrast route: INTRAVENOUS (IV); COMPARISON: No relevant prior studies available. RADIATION DOSE METRICS: Total DLP (mGy-cm): 0.01 FINDINGS: Right common carotid artery: Patent enhancing right common carotid artery. No significant stenosis. No dissection or occlusion. Right internal carotid artery: No acute abnormality. Minimal plaque along the right carotid bulb. Extracranial segment is patent without stenosis with respect to the distal ICA lumen. No dissection or occlusion. Right external carotid artery: Patent enhancing right external carotid artery. No occlusion or significant stenosis. Left common carotid artery: Patent enhancing left common carotid artery. No significant stenosis. No dissection or occlusion. Left internal carotid artery: No acute abnormality. Mild plaque along the left carotid bifurcation and carotid bulb. Extracranial segment is patent without stenosis with respect to the distal ICA lumen. No dissection or occlusion. Left external carotid artery: Patent enhancing left external carotid artery. No occlusion or significant stenosis. Right vertebral artery: Patent enhancing small caliber nondominant right vertebral artery without significant stenosis. No dissection or occlusion. Left vertebral artery: Patent enhancing dominant left vertebral artery extracranial segments without significant stenosis. No dissection or occlusion. Pulmonary arteries: Acute bilateral upper lobe PE right greater than left including thrombus within distal right main pulmonary artery and segmental right upper lobe pulmonary artery branches. Soft tissues: No significant soft tissue abnormalities. Bones/joints: Cervical spondylosis and degenerative bony changes. CT/CT angio headneck* [id number] IMPRESSION: 1. Patent enhancing intracranial arteries without evidence of acute large vessel occlusion at this time. 2. 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 3. Diffuse atrophy and chronic/remote ischemic changes without evidence of superimposed acute infarct, hemorrhage or mass-effect at this time. IMPRESSION: 1. No evidence of significant carotid or extracranial vertebral artery vascular disease at this time. 2. Acute bilateral upper lobe PE right greater than left including thrombus within distal right main pulmonary artery and segmental right upper lobe pulmonary artery branches. REFERENCES: NASCET CRITERIA. The degree of stenosis in the cervical segment of the internal carotid artery is based on NASCET criteria. Normal is no stenosis. Mild is less than 50% stenosis. Moderate is 50-69% stenosis. Severe is 70% to 99% stenosis. Total occlusion is no detectable patent lumen.
[2024-05-29 05:27] LABS: INR 1.06 (0.8-1.2)
[2024-05-29] MEDS: pantoprazole 40 mg SDV IVP (05:38)
[2024-05-29] MEDS: sodium chloride 0.9% 1,000 ML 75 ML IV (05:38)
[2024-05-29] MEDS: iohexol 350 mg/mL 500 mL Btl (per mL) IV ×2 (05:40→07:35)
[2024-05-29 05:41] LABS: Cholesterol 99 mg/dL (0-200); HDL Cholesterol 45 mg/dL (60-100); LDL Cholesterol Calculated 29 mg/dL (50-129); LDL HDL Ratio 0.64 RATIO (0.00-3.22); NT Pro B Type Natriuretic Pept 246 pg/mL (0-450); Thyroid Stimulating Hormone 3.16 uIU/mL (0.27-4.20); Triglycerides 124 mg/dL (0-150)
[2024-05-29 05:45] LABS: Estmated Average Glucose 169; Hemoglobin A1C 7.5 % (4.0-6.0)
[2024-05-29 06:35] LABS: Lactic Sepsis W/Reflex 2.7 mmol/L (0.5-2.2)
--- NOTE | 2024-05-29 07:00 | CT_ITS ---
WS: [id number] CT CHEST ANGIOGRAPHY WITH REFORMATS HISTORY: PE TECHNIQUE: Contiguous axial images are obtained through the chest during arterial injection of intravenous contrast. Images are reconstructed to evaluate the pulmonary arteries. MIP imaging also reviewed. All CT scans at [facility] use at least one of these dose optimization techniques: automated exposure control; mA and/or kV adjustment per patient size (includes targeted exams where dose is matched to clinical indication); or iterative reconstruction. CONTRAST: Omnipaque 350; 100 mL IV. DLP: 393.73 mGy.cm COMPARISON: CT 05/29/2024 Good opacification of the pulmonary arteries. In the distal RIGHT main pulmonary artery is near complete occlusion due to embolic disease. Embolic burden continues into the segmental branches of the RIGHT upper, middle and lower lobes. There is additional but lesser embolic burden involving the LEFT upper and lower lobe segmental branches. A few small emboli are noted in the subsegmental branches RIGHT lower lobe. No saddle embolism. No RIGHT heart strain. No pericardial or pleural effusions. Mild dependent changes at the lung bases. No mass, pneumonia or pulmonary nodule. Mild atherosclerosis aorta. No adenopathy. Small hiatal hernia. Hepatic steatosis. No adrenal mass. Mild anterior wedging of L1. Degenerative thoracic spondylosis. No destructive bone lesions. CT/CT angio chest PE protcl [id number] IMPRESSION: 1. 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 2. Moderate pulmonary embolic burden, greatest on the RIGHT involving the main pulmonary artery with extension into the lobar and segmental branches. No sadd le embolism. 3. Small amount of embolic burden on the LEFT in the segmental branches. 4. No pneumonia. 5. No RIGHT heart strain.
[2024-05-29 07:21] LABS: Troponin 5 6HR 18.82 ng/L (0-15); Troponin 5 6HR Delta 6.82 ng/L (0-12)
[2024-05-29 07:42] LABS: Bilirubin Urine Negative (Negative); Blood Urine Non-haemolysed trace (Negative); Glucose Urine UA Trace (Normal); Ketones Urine Negative (Negative); Leukocyte Esterase Urine Negative (Negative); Nitrate Urine Negative (Negative); Protein Urine Negative (Negative); Specific Gravity, Urine 1.024 (1.005-1.030); Urine Appearance Clear (CLEAR); Urine Color Yellow (Yellow); Urobilinogen Urine 0.2 mg/dL (Negative)
[2024-05-29 07:45] LABS: Add Urine Microscopic? YES; Bacteria Urine None Seen /hpf; Hyaline Casts Urine 1.21 /lpf; RBC Urine 0-2 /hpf (0-2); Squamous Epithelial Cell Urine 0-5 /hpf (0-5); WBC Urine 0-5 /hpf (0-5)
[2024-05-29 07:56] LABS: Reflex Lactate Order REFLEX LACTIC ORDERD
[2024-05-29] MEDS: heparin drip 25,000 UNIT/500 ML PREMIX 25 UNIT IV (08:02)
[2024-05-29] MEDS: heparin 5,000 unit/mL INJ 1 mL IVP (08:04)
[2024-05-29 08:32] LABS: Lactic Acid level (Lactate) 1.1 mmol/L (0.5-2.2)
[2024-05-29] MEDS: aspirin 81 mg EC Tablet PO (09:29)
[2024-05-29] MEDS: levothyroxine 25 mcg Tablet PO (09:30)
[2024-05-29] MEDS: morphine 4 mg/mL SDV 1 mL 2 MG IVP ×3 (09:31→22:31)
--- NOTE | 2024-05-29 14:28 | PM.MISC ---
Miscellaneous Note Purpose of Documentation: Overnight labs and H&P reviewed. Patient found to have bilateral PE. Moderate pulmonary embolic burden greatest on the right side involving the main pulmonary artery With extension into the lobar and segmental branches. continue heparin drip. Resume home dose of amlodipine, levothyroxine
[2024-05-29 14:32] LABS: INR 1.14 (0.8-1.2)
[2024-05-29 14:51] LABS: Partial Thromboplastin Time 228.5 SECONDS (23.9-36.7)
--- NOTE | 2024-05-29 18:22 | USCV_ITS ---
Gurpreet Lang Age: 83 Gender: M : 1940 Exam Date: 05/29/2024 22:31 Ordering Phys: Lisa Cho MD Technologist: MARILYNN Exam Location: [facility] Indication: assess for dvt PROCEDURES: Venous duplex imaging was performed in bilateral lower extremities. The following venous structures were evaluated: common femoral vein, profunda vein, proximal portion of the greater saphenous vein, superficial femoral vein, and the popliteal vein. In addition, the posterior tibial and peroneal veins were evaluated. FINDINGS: Normal 2-D Doppler and augmentation and compressibility throughout the lower extremity venous structures. Additional imaging through the proximal calf veins also reveals no thrombus. Limited evaluation of the greater saphenous vein is patent with no thrombus. CONCLUSIONS No DVT bilateral lower extremities. Dr. Patricia Clark DO (Electronically Signed) Final Date: 30 May 2024 14:39 S
--- NOTE | 2024-05-29 18:25 | PC.NURSE ---
Dr. Cho gave v.o. for prn morphine per MAR
--- NOTE | 2024-05-29 19:50 | PC.NURSE ---
Pupils Patient's right pupil larger than left pupil, both brisk, size 3 and 2 respectively. Patient states this is how it has been since he had a retina detachment in his right eye. Depth perception is different in right eye.
[2024-05-29 19:52] LABS: Partial Thromboplastin Time 32.1 SECONDS (23.9-36.7)
[2024-05-29] MEDS: atorvastatin 40 mg Tablet PO (20:57)
--- NOTE | 2024-05-29 21:12 | PC.NURSE ---
Heparin Patient's ptt resulted at 32.1. Dr. Ro contacted; orders received to restart heparin drip at 25 ml/hr without bolus and recheck ptt in 4 hours.
--- NOTE | 2024-05-29 23:35 | PC.NURSE ---
Cardiac Diet Patient requesting food and drink. Dr. Ro contacted, order received for cardiac diet.
[2024-05-30] VITALS (20 sets, daily range): BP systolic 104–138; BP diastolic 63–82; PULSE 46–83; RESP 10–19; TEMP 36.6–36.8; O2SAT 88–94
[2024-05-30 01:59] LABS: Partial Thromboplastin Time 128.5 SECONDS (23.9-36.7)
--- NOTE | 2024-05-30 02:50 | ECG_ITS ---
[facility] 2024-05-30 Pat Name: Gurpreet Lang Department: Room: [facility] Gender: Male Charge Out Clerk: : 1940 Requested By: Brock Ro Order Number: [id number] Sonia MD: Saloni Hoyt M.D. Measurements Intervals [place] Rate: 63 P: 45 MA: 178 QRS: 50 QRSD: 154 T: 62 QT: 467 QTc: 480 Interpretive Statements SINUS RHYTHM WITH FREQUENT VENTRICULAR PREMATURE COMPLEXES- interpolated PVCs INDETERMINATE AXIS INTRAVENTRICULAR CONDUCTION DELAY [130+ ms QRS DURATION] LATERAL MYOCARDIAL INFARCTION , PROBABLY OLD [40+ ms Q WAVE AND/OR ST/T ABNORMALITY IN I/aVL/V5/V6] Compared to ECG 05/29/2024 00:43:49 Ventricular premature complex(es) now present Intraventricular conduction delay now present Myocardial infarct finding now present Right bundle-branch block no longer present Electronically Signed On 05-30-2024 08:55:29 CDT by Saloni Hoyt M.D. [email or web address] [id number]
--- NOTE | 2024-05-30 03:07 | PC.NURSE ---
PVCs PVCs increasing in frequency in patient's rhythm. EKG obtained. Dr. Ro notified.
[2024-05-30] MEDS: pantoprazole 40 mg SDV IVP (04:26)
[2024-05-30 04:56] LABS: Basophils # 0.1 10^3/uL (0.0-0.1); Basophils % 1.1 %; Eosinophils # 0.5 10^3/uL (0.0-0.8); Eosinophils % 6.1 %; Hematocrit 42.6 % (37-53); Lymphocytes # 2.6 10^3/uL (0.8-4.8); Lymphocytes % 35.2 %; Mean Corpuscular HGB Conc 32.9 g/dL (30-55); Mean Corpuscular Hemoglobin 32.3 pg (27-33); Mean Corpuscular Volume 98.4 fl (82-101); Mean Platelet Volume 9.8 fL (7.4-10.4); Monocytes # 0.6 10^3/uL (0.2-0.9); Monocytes % 8.5 %; Neutrophils # 3.58 10^3/uL (1.8-7.7); Neutrophils % 48.8 %; Nucleated Red Blood Cells % 0 %; Platelet Count 148 10^3/cmm (157-399); Red Blood Count 4.33 10^6/uL (3.85-5.65); Red Cell Distribution Width 12.8 % (12.1-15.1); White Blood Count 7.33 10^3/uL (3.29-11.43)
[2024-05-30 05:22] LABS: Alanine Aminotransferase 12 U/L (0-41); Albumin Level 3.7 g/dL (3.5-5.2); Alkaline Phosphatase 85 U/L (40-130); Anion Gap 14.1 (5-19); Aspartate Amino Transferase 20 U/L (0-40); Blood Urea Nitrogen 12 mg/dL (8-23); Calcium 8.2 mg/dL (8.5-10.5); Carbon Dioxide 23 mmol/L (22-29); Chloride 109 mmol/L (98-107); Creatinine Clr Calc Pharmacy 51.3007; Globulin 2.3 g/dL (1.3-4.6); Glucose 136 mg/dL (65-115); Osmolality Calculated 296 mOsm/kg (285-295); Potassium 4.1 mmol/L (3.5-5.1); Sodium 142 mmol/L (136-145); Total Bilirubin 0.7 mg/dL (0.15-1.2)
[2024-05-30 09:07] LABS: Partial Thromboplastin Time 174.3 SECONDS (23.9-36.7)
[2024-05-30] MEDS: sertraline 100 mg Tablet PO (09:11)
[2024-05-30] MEDS: levothyroxine 25 mcg Tablet PO (09:11)
[2024-05-30] MEDS: amlodipine 5 mg Tablet PO (09:11)
[2024-05-30] MEDS: aspirin 81 mg EC Tablet PO (09:11)
--- NOTE | 2024-05-30 10:57 | PC.NURSE ---
procurement coordinator rounds @[id number]- patient sitting in the chair, gave patient stroke education book and talked with him for quite a bit, answered all questions regarding stroke and stroke prevention
--- NOTE | 2024-05-30 12:30 | PC.SOCIAL ---
IMM UPDATED IMM dated and initialed, copy given to patient and copy placed in chart.
--- NOTE | 2024-05-30 13:02 | P.PN_ITS ---
Subjective 2 Subjective: Complains of some soreness over his right shoulder but otherwise unremarkable. Medications: Reviewed: Yes Vitals/I&O/Wt Last Vital Signs Temp 97.5 F L 05/31/24 08:00 Pulse 54 L 05/31/24 09:15 Resp 20 H 05/31/24 10:48 BP 139/70 05/31/24 08:00 Pulse Ox 95 05/31/24 10:48 O2 Del Method Nasal Cannula 05/31/24 09:15 O2 Flow Rate 3 05/31/24 09:15 05/30/24 05/31/24 05/31/24 22:59 06:59 14:59 Intake Total 289.167 / 864.501 89.133 / 953.634 240 / 240 Output Total 850 / 1150 300 / 1450 300 / 300 Balance -560.833 / -285.499 -210.867 / -496.366 -60 / -60 Weight last 48 hrs Weight 86.636 kg Weight 85 kg Physical Exam 2 Narrative: General: No acute distress, AO x3 HEENT: PERRLA, pupils bilaterally equal and reactive, pallors not present Chest: Normal vesicular breath sounds, no added sounds, equal good air entry bilaterally CVS: S1-S2 regular, no murmurs, no tachycardia, no gallops, no rubs Abdomen: Soft, nontender, no organomegaly, bowel sounds present Neuro: No focal deficits, no facial deformity, AO x3, power 5/5 in all limbs Data 05/31/24 03:00 05/30/24 04:40 A&P Assessment and plan (1) TIA (transient ischemic attack): (2) Dizziness: (3) CVA (cerebral vascular accident): Plan Dizziness - Positive cerebellar signs - Concerns for CVA versus TIA - NIH stroke scale 2 - Patient is out of window for tPA Plan - CTA head and neck, CT head ordered - Aspirin 81 mg - Atorvastatin - Will allow for permissive hypertension - PT OT - Speech therapy eval - Dysphagia eval - Telemetry monitoring - Cardiac echo - Patient is a DNR, okay with elective intubation if required - Lovenox for DVT prophylaxis Elevated troponins - 120-minute 17.58 - No active chest pain - Serial EKGs, start troponins, telemetry monitoring - Aspirin, statin 05/29/24 Overnight labs and H&P reviewed. Patient found to have bilateral PE. Moderate pulmonary embolic burden greatest on the right side involving the main pulmonary artery With extension into the lobar and segmental branches. continue heparin drip. Resume home dose of amlodipine, levothyroxine 05/30/2024 Complains of some soreness over the right shoulder and right chest wall. Suspect this to be referred pain from PE. Added morphine as needed for pain management. Continue heparin drip today. Plan to continue heparin drip for about 48 hours given extensive right-sided PE. With plan transition to oral Eliquis over the next 24 hours. Oxygen requirements are stable today at 3 L/min. May transfer out of ICU to CSU today. Noted sinus bradycardia. Echocardiogram showing normal LVEF of 62%, grade 1 diastolic dysfunction. Normal to mildly elevated filling pressures. Estimated PASP of 40 mmHg. No significant change compared to 2021. PDMP PDMP Reviewed: Not Reviewed Attestations 2 Medical Necessity Statement*: Transfer out of ICU to CSU, continue anticoagulation with heparin for PE Coding Level of Care Code Acute Code for [facility] Fwd Diagnoses TIA (transient ischemic attack) G45.9 Dizziness R42 CVA (cerebral vascular accident) I63.9
[2024-05-30 14:08] LABS: Partial Thromboplastin Time 31.5 SECONDS (23.9-36.7)
--- NOTE | 2024-05-30 14:22 | PC.NURSE ---
ptt for patient came back at 31.5. Dr Cho called and she said to start heparin drip back at 1/2 the previous rate.
[2024-05-30] MEDS: heparin drip 25,000 UNIT/500 ML PREMIX 10 UNIT IV (14:43)
[2024-05-30] MEDS: morphine 4 mg/mL SDV 1 mL 2 MG IVP ×2 (14:43→19:52)
[2024-05-30] MEDS: atorvastatin 40 mg Tablet PO (19:51)
[2024-05-30 20:52] LABS: Partial Thromboplastin Time 44.9 SECONDS (23.9-36.7)
[2024-05-30] MEDS: heparin 5,000 unit/mL INJ 1 mL IVP (21:38)
[2024-05-31] VITALS (10 sets, daily range): BP systolic 111–139; BP diastolic 64–85; PULSE 54–79; RESP 16–32; TEMP 36.4–37.1; O2SAT 92–95
[2024-05-31 03:09] LABS: Platelet Count 122 10^3/cmm (157-399)
[2024-05-31 03:47] LABS: Partial Thromboplastin Time 149.6 SECONDS (23.9-36.7)
[2024-05-31] MEDS: pantoprazole 40 mg SDV IVP (04:15)
[2024-05-31 10:10] LABS: Partial Thromboplastin Time 62.1 SECONDS (23.9-36.7)
[2024-05-31] MEDS: aspirin 81 mg EC Tablet PO (10:33)
[2024-05-31] MEDS: apixaban 5 mg Tablet 10 MG PO ×2 (10:33→20:22)
[2024-05-31] MEDS: levothyroxine 25 mcg Tablet PO (10:34)
[2024-05-31] MEDS: amlodipine 5 mg Tablet PO (10:36)
[2024-05-31] MEDS: sertraline 100 mg Tablet PO ×2 (10:38→10:40)
[2024-05-31] MEDS: morphine 4 mg/mL SDV 1 mL 2 MG IVP ×2 (10:48→22:37)
--- NOTE | 2024-05-31 12:54 | P.PN_ITS ---
Subjective 2 Subjective: Oxygen requirement is stable at 3 L/min today. Saturating 95%. Feels sore in his chest but otherwise no new complaints. Medications: Reviewed: Yes Vitals/I&O/Wt Last Vital Signs Temp 97.5 F L 05/31/24 08:00 Pulse 54 L 05/31/24 09:15 Resp 20 H 05/31/24 10:48 BP 139/70 05/31/24 08:00 Pulse Ox 95 05/31/24 10:48 O2 Del Method Nasal Cannula 05/31/24 09:15 O2 Flow Rate 3 05/31/24 09:15 05/30/24 05/31/24 05/31/24 22:59 06:59 14:59 Intake Total 289.167 / 864.501 89.133 / 953.634 240 / 240 Output Total 850 / 1150 300 / 1450 300 / 300 Balance -560.833 / -285.499 -210.867 / -496.366 -60 / -60 Weight last 48 hrs Weight 86.636 kg Weight 85 kg Physical Exam 2 Narrative: General: No acute distress, AO x3 HEENT: PERRLA, pupils bilaterally equal and reactive, pallors not present Chest: Normal vesicular breath sounds, no added sounds, equal good air entry bilaterally CVS: S1-S2 regular, no murmurs, no tachycardia, no gallops, no rubs Abdomen: Soft, nontender, no organomegaly, bowel sounds present Neuro: No focal deficits, no facial deformity, AO x3, power 5/5 in all limbs Data 05/31/24 03:00 05/30/24 04:40 A&P Assessment and plan (1) TIA (transient ischemic attack): (2) Dizziness: (3) CVA (cerebral vascular accident): Plan Dizziness - Positive cerebellar signs - Concerns for CVA versus TIA - NIH stroke scale 2 - Patient is out of window for tPA Plan - CTA head and neck, CT head ordered - Aspirin 81 mg - Atorvastatin - Will allow for permissive hypertension - PT OT - Speech therapy eval - Dysphagia eval - Telemetry monitoring - Cardiac echo - Patient is a DNR, okay with elective intubation if required - Lovenox for DVT prophylaxis Elevated troponins - 120-minute 17.58 - No active chest pain - Serial EKGs, start troponins, telemetry monitoring - Aspirin, statin 05/29/24 Overnight labs and H&P reviewed. Patient found to have bilateral PE. Moderate pulmonary embolic burden greatest on the right side involving the main pulmonary artery With extension into the lobar and segmental branches. continue heparin drip. Resume home dose of amlodipine, levothyroxine 05/31/2024 No new complaints today. Continues to complain of some soreness over his right chest but otherwise states breathing is feeling better. Saturating 95% on 3 L/min supplemental O2. Ambulating within the room. Discontinue heparin drip today. Transition to Eliquis 10 mg twice daily today. Closely monitor with change in anticoagulation today. Recheck CBC with a.m. labs. PDMP PDMP Reviewed: Not Reviewed Attestations 2 Medical Necessity Statement*: Please continue admission for PE, transitioning anticoagulation from heparin to Eliquis today. Coding Level of Care Code Acute Code for Chg Fwd Diagnoses TIA (transient ischemic attack) G45.9 Dizziness R42 CVA (cerebral vascular accident) I63.9
[2024-05-31] MEDS: FUROsemide 10 mg/mL SDV 2mL 20 MG IVP (14:08)
[2024-05-31] MEDS: atorvastatin 40 mg Tablet PO (20:22)
[2024-06-01] VITALS (21 sets, daily range): BP systolic 118–133; BP diastolic 74–89; PULSE 58–76; RESP 14–24; TEMP 36.4–36.9; O2SAT 87–95
[2024-06-01 03:48] LABS: Basophils # 0.1 10^3/uL (0.0-0.1); Basophils % 0.8 %; Eosinophils # 0.4 10^3/uL (0.0-0.8); Eosinophils % 6.1 %; Lymphocytes # 1.6 10^3/uL (0.8-4.8); Mean Corpuscular HGB Conc 32.9 g/dL (30-55); Mean Corpuscular Hemoglobin 32.5 pg (27-33); Mean Corpuscular Volume 98.7 fl (82-101); Mean Platelet Volume 10.4 fL (7.4-10.4); Monocytes # 0.7 10^3/uL (0.2-0.9); Monocytes % 11.1 %; Neutrophils % 56.8 %; Nucleated Red Blood Cells % 0 %; Platelet Count 143 10^3/cmm (157-399); Red Blood Count 4.56 10^6/uL (3.85-5.65); Red Cell Distribution Width 12.4 % (12.1-15.1); White Blood Count 6.51 10^3/uL (3.29-11.43)
[2024-06-01 04:04] LABS: Alanine Aminotransferase 13 U/L (0-41); Alkaline Phosphatase 86 U/L (40-130); Anion Gap 15.9 (5-19); Aspartate Amino Transferase 20 U/L (0-40); Blood Urea Nitrogen 18 mg/dL (8-23); Calcium 8.7 mg/dL (8.5-10.5); Carbon Dioxide 25 mmol/L (22-29); Chloride 103 mmol/L (98-107); Creatinine Clr Calc Pharmacy 46.9046; Globulin 2.5 g/dL (1.3-4.6); Glucose 144 mg/dL (65-115); Osmolality Calculated 294 mOsm/kg (285-295); Potassium 3.9 mmol/L (3.5-5.1); Sodium 140 mmol/L (136-145); Total Bilirubin 0.7 mg/dL (0.15-1.2); Total Protein 6.5 g/dL (6.6-8.7)
[2024-06-01] MEDS: pantoprazole 40 mg SDV IVP (04:49)
[2024-06-01] MEDS: aspirin 81 mg EC Tablet PO (07:40)
[2024-06-01] MEDS: amlodipine 5 mg Tablet PO (07:41)
[2024-06-01] MEDS: sertraline 100 mg Tablet PO (07:41)
[2024-06-01] MEDS: levothyroxine 25 mcg Tablet PO (07:41)
[2024-06-01] MEDS: apixaban 5 mg Tablet 10 MG PO ×2 (07:41→19:59)
--- NOTE | 2024-06-01 15:25 | P.PN_ITS ---
Subjective 2 Subjective: No new complaints. Overall he is clinically stable. He has been ambulating in the room from his bed to the bathroom. Currently between 3 to 4 L/min supplemental O2 which is stable. Tolerating transition to Eliquis 10 mg twice daily. Medications: Reviewed: Yes Vitals/I&O/Wt Last Vital Signs Temp 97.6 F 06/01/24 12:00 Pulse 68 06/01/24 14:00 Resp 24 H 06/01/24 12:00 BP 133/89 06/01/24 12:00 Pulse Ox 93 06/01/24 12:00 O2 Del Method Nasal Cannula 06/01/24 12:00 O2 Flow Rate 3 06/01/24 12:00 06/01/24 06/01/24 06/01/24 06:59 14:59 22:59 Intake Total 360 / 360 Output Total 650 / 2000 250 / 250 Balance -650 / -1058.3 110 / 110 Weight last 48 hrs Weight 85.411 kg Weight 86.636 kg Physical Exam 2 Narrative: General: No acute distress, AO x3 HEENT: PERRLA, pupils bilaterally equal and reactive, right side pseudophakia. Patient reports having had multiple surgeries on his right eye in the past. Mild lid lag on the right side. Chest: Normal vesicular breath sounds, no added sounds, equal good air entry bilaterally CVS: S1-S2 regular, no murmurs, no tachycardia, no gallops, no rubs Abdomen: Soft, nontender, no organomegaly, bowel sounds present Neuro: No focal deficits, no facial deformity, AO x3, power 5/5 in all limbs Data 06/01/24 03:12 06/01/24 03:12 A&P Assessment and plan (1) TIA (transient ischemic attack): (2) Dizziness: (3) CVA (cerebral vascular accident): Plan Dizziness - Positive cerebellar signs - Concerns for CVA versus TIA - NIH stroke scale 2 - Patient is out of window for tPA Plan - CTA head and neck, CT head ordered - Aspirin 81 mg - Atorvastatin - Will allow for permissive hypertension - PT OT - Speech therapy eval - Dysphagia eval - Telemetry monitoring - Cardiac echo - Patient is a DNR, okay with elective intubation if required - Lovenox for DVT prophylaxis Elevated troponins - 120-minute 17.58 - No active chest pain - Serial EKGs, start troponins, telemetry monitoring - Aspirin, statin 05/29/24 Overnight labs and H&P reviewed. Patient found to have bilateral PE. Moderate pulmonary embolic burden greatest on the right side involving the main pulmonary artery With extension into the lobar and segmental branches. continue heparin drip. Resume home dose of amlodipine, levothyroxine 05/30/2024 Complains of some soreness over the right shoulder and right chest wall. Suspect this to be referred pain from PE. Added morphine as needed for pain management. Continue heparin drip today. Plan to continue heparin drip for about 48 hours given extensive right-sided PE. With plan transition to oral Eliquis over the next 24 hours. Oxygen requirements are stable today at 3 L/min. May transfer out of ICU to [facility]SU today. Noted sinus bradycardia. Echocardiogram showing normal LVEF of 62%, grade 1 diastolic dysfunction. Normal to mildly elevated filling pressures. Estimated PASP of 40 mmHg. No significant change compared to 2021. 05/31/2024 No new complaints today. Continues to complain of some soreness over his right chest but otherwise states breathing is feeling better. Saturating 95% on 3 L/min supplemental O2. Ambulating within the room. Discontinue heparin drip today. Transition to Eliquis 10 mg twice daily today. Closely monitor with change in anticoagulation today. Recheck CBC with a.m. labs. June 01, 2024 Denies any new complaints today. He is able to ambulate from the bed to the bathroom. Currently saturating 93% on 3 L/min supplemental O2. Tolerating transition to Eliquis 10 mg twice daily. CBC notes normal stable hemoglobin. Platelet count at 143 which is patient's baseline. No signs of bleeding at any site. Patient is noted to be slightly tachypneic in conversation. He received 20 mg of IV Lasix yesterday following which he diuresed 1900 cc. Net -1 L. Holding further diuresis today. Check chest x-ray to assess for interval development of pneumonia. Echocardiogram showing normal EF, grade 1 diastolic dysfunction, mildly elevated filling pressures and a PASP of 40 mmHg, Likely reflective of mild pulmonary hypertension which may be from the PE. Obtain home O2 evaluation. Patient's caregiver is homesick today with URI symptoms and a sore throat, unable to get patient today. Will continue to monitor next 24 hours and if stable will likely discharge home with caregiver. PDMP PDMP Reviewed: Not Reviewed Attestations 2 Medical Necessity Statement*: Continue anticoagulation, monitor closely with transition from heparin to Eliquis, home O2 evaluation, chest x-ray today. Coding Level of Care Code Acute Code for Chg Fwd Moderate MDM includes number and complexity of problems actively addressed during encounter, amount and/or complexity of data reviewed/ordered and described risk of complication, morbidity or mortality of management as documented Diagnoses TIA (transient ischemic attack) G45.9 Dizziness R42 CVA (cerebral vascular accident) I63.9
--- NOTE | 2024-06-01 15:36 | XRR_ITS ---
PROCEDURE INFORMATION: Exam: XR Chest Exam date and time: 06/01/2024 4:17 PM Age: 83 years old Clinical indication: Other: Assess for edema TECHNIQUE: Imaging protocol: Radiologic exam of the chest. Views: 1 view. COMPARISON: CT angio chest PE protcl [id number] 05/29/2024 7:30 AM FINDINGS: Lungs: No focal consolidation. Left basilar atelectasis. Pleural spaces: No large pleural effusion. No pneumothorax. Heart/Mediastinum: The cardiomediastinal silhouette is stable and mildly enlarged. Bones/joints: Unremarkable. XR/XR chest 1V portable [id number] IMPRESSION: Stable exam without evidence significant pulmonary vascular congestion. The cardiomediastinal silhouette is stable and mildly enlarged. No large pleural effusion.
[2024-06-01 18:38] LABS: Influenza A NEGATIVE (Negative); Influenza B NEGATIVE (Negative); Respiratory Syncytial Virus Ce NEGATIVE (Negative); SARS-CoV-2 PCR NEGATIVE (Negative)
[2024-06-01] MEDS: morphine 4 mg/mL SDV 1 mL 2 MG IVP (19:57)
[2024-06-01] MEDS: atorvastatin 40 mg Tablet PO (19:59)
[2024-06-02] VITALS (30 sets, daily range): BP systolic 109–140; BP diastolic 62–82; PULSE 52–87; RESP 12–28; TEMP 36.3–36.8; O2SAT 88–96
[2024-06-02 04:01] LABS: Basophils # 0.1 10^3/uL (0.0-0.1); Basophils % 0.7 %; Eosinophils # 0.4 10^3/uL (0.0-0.8); Eosinophils % 5.9 %; Hematocrit 46.7 % (37-53); Lymphocytes # 1.8 10^3/uL (0.8-4.8); Lymphocytes % 25.1 %; Mean Corpuscular HGB Conc 32.8 g/dL (30-55); Mean Corpuscular Hemoglobin 32.5 pg (27-33); Mean Corpuscular Volume 99.2 fl (82-101); Mean Platelet Volume 9.9 fL (7.4-10.4); Monocytes # 0.8 10^3/uL (0.2-0.9); Monocytes % 10.8 %; Neutrophils # 4.18 10^3/uL (1.8-7.7); Neutrophils % 57.4 %; Nucleated Red Blood Cells % 0 %; Platelet Count 158 10^3/cmm (157-399); Red Blood Count 4.71 10^6/uL (3.85-5.65); Red Cell Distribution Width 12.2 % (12.1-15.1); White Blood Count 7.29 10^3/uL (3.29-11.43)
[2024-06-02 04:19] LABS: Alanine Aminotransferase 17 U/L (0-41); Alkaline Phosphatase 89 U/L (40-130); Anion Gap 15.1 (5-19); Aspartate Amino Transferase 27 U/L (0-40); Blood Urea Nitrogen 22 mg/dL (8-23); Calcium 8.9 mg/dL (8.5-10.5); Carbon Dioxide 26 mmol/L (22-29); Chloride 103 mmol/L (98-107); Globulin 2.5 g/dL (1.3-4.6); Glucose 153 mg/dL (65-115); Osmolality Calculated 296 mOsm/kg (285-295); Potassium 4.1 mmol/L (3.5-5.1); Sodium 140 mmol/L (136-145); Total Bilirubin 0.8 mg/dL (0.15-1.2); Total Protein 6.5 g/dL (6.6-8.7)
[2024-06-02] MEDS: levothyroxine 25 mcg Tablet PO (07:50)
[2024-06-02] MEDS: pantoprazole DR 40 mg Tablet PO (07:50)
[2024-06-02] MEDS: apixaban 5 mg Tablet 10 MG PO ×2 (07:50→20:39)
[2024-06-02] MEDS: amlodipine 5 mg Tablet PO (07:50)
[2024-06-02] MEDS: aspirin 81 mg EC Tablet PO (07:50)
[2024-06-02] MEDS: sertraline 100 mg Tablet PO (07:51)
--- NOTE | 2024-06-02 08:58 | P.PN_ITS ---
Subjective 2 Subjective: Continues to feel quite short of breath with exertion. Got up with PT but only within the room. Down to 2 L of oxygen by nasal cannula. No chest pain. Has been off of his blood pressure medication while here. Vitals/I&O/Wt Last Vital Signs Temp 97.7 F 06/02/24 03:56 Pulse 63 06/02/24 03:56 Resp 19 H 06/02/24 03:56 BP 129/82 06/02/24 03:56 Pulse Ox 94 06/02/24 03:56 O2 Del Method Nasal Cannula 06/02/24 03:56 O2 Flow Rate 2 06/01/24 19:07 06/01/24 06/02/24 06/02/24 22:59 06:59 14:59 Intake Total 240 / 600 Output Total 150 / 400 500 / 900 Balance 90 / 200 -500 / -300 Weight last 48 hrs Weight 84.323 kg Weight 85.411 kg Physical Exam 2 Narrative: Awake, able to provide history. Lying in bed. Looks frail. Oxygen in place. Lungs are clear to auscultation bilaterally. Cardiovascular exam reveals a regular rhythm. Abdomen is soft, nontender. Moves all extremities, speech clear face symmetric Data 06/02/24 03:51 06/02/24 03:51 A&P Assessment and plan (1) Bilateral pulmonary embolism: On Eliquis. It looks like his insurance may not cover Eliquis so we will need to get some clarification on this for home use. Requiring oxygen. We reviewed prognosis, bleeding risk with anticoagulation including shaving/cutting and in general, oxygen use. Exertional capacity remains low. (2) Dizziness: Presenting complaint for above (3) HTN (hypertension): Normally on losartan which has been held during stay. Received one dose lasix 06/01 for fluid overload/pulmonary hypertension related to PE. Qualifiers: Hypertension type: primary hypertension Qualified Code(s): I10 - Essential (primary) hypertension (4) Diabetes mellitus type II, non insulin dependent: New diagnosis, not on treatment at home A1c 7.5. Plan to follow up with PCP, start metformin 500mg daily (5) CAD (coronary artery disease): Not acute, elevation in troponins likely secondary to PE, peak troponin 18.8 (6) Dyslipidemia: With low HDL (7) TIA (transient ischemic attack): Ruled out (8) CVA (cerebral vascular accident): Ruled out Plan - NIH stroke scale 2 at presentation - Patient presented out of window for tPA - CTA head and neck, CT head ordered - No evidence for CVA/TIA but found to have PE - CTA Chest performed - Venous duplex LE - PT OT Speech therapy eval - Dysphagia eval - Telemetry monitoring - Cardiac echo - Lasix x one dose on 06/01 - Patient is a DNR, okay with elective intubation if required 05/29/24 Overnight labs and H&P reviewed. Patient found to have bilateral PE. Moderate pulmonary embolic burden greatest on the right side involving the main pulmonary artery With extension into the lobar and segmental branches. continue heparin drip. Resume home dose of amlodipine, levothyroxine 05/30/2024 Complains of some soreness over the right shoulder and right chest wall. Suspect this to be referred pain from PE. Added morphine as needed for pain management. Continue heparin drip today. Plan to continue heparin drip for about 48 hours given extensive right-sided PE. With plan transition to oral Eliquis over the next 24 hours. Oxygen requirements are stable today at 3 L/min. May transfer out of ICU to [facility] today. Noted sinus bradycardia. Echocardiogram showing normal LVEF of 62%, grade 1 diastolic dysfunction. Normal to mildly elevated filling pressures. Estimated PASP of 40 mmHg. No significant change compared to 2021. 05/31/2024 No new complaints today. Continues to complain of some soreness over his right chest but otherwise states breathing is feeling better. Saturating 95% on 3 L/min supplemental O2. Ambulating within the room. Discontinue heparin drip today. Transition to Eliquis 10 mg twice daily today. Closely monitor with change in anticoagulation today. Recheck CBC with a.m. labs. June 01, 2024 Denies any new complaints today. He is able to ambulate from the bed to the bathroom. Currently saturating 93% on 3 L/min supplemental O2. Tolerating transition to Eliquis 10 mg twice daily. CBC notes normal stable hemoglobin. Platelet count at 143 which is patient's baseline. No signs of bleeding at any site. Patient is noted to be slightly tachypneic in conversation. He received 20 mg of IV Lasix yesterday following which he diuresed 1900 cc. Net -1 L. Holding further diuresis today. Check chest x-ray to assess for interval development of pneumonia. Echocardiogram showing normal EF, grade 1 diastolic dysfunction, mildly elevated filling pressures and a PASP of 40 mmHg, Likely reflective of mild pulmonary hypertension which may be from the PE. Obtain home O2 evaluation. Patient's caregiver is homesick today with URI symptoms and a sore throat, unable to get patient today. Will continue to monitor next 24 hours and if stable will likely discharge home with caregiver. 06/02 Home oxygen evaluation performed. Requiring 2 L by nasal cannula at rest. Unable to walk except within the room. Short of breath with exertion. Remains off of home losartan which I plan to restart today. On review of records has hyperglycemia and a hemoglobin A1c of 7.5. Not known to have diabetes mellitus previously. Will plan for diet management and initiation of metformin though will need close follow-up given baseline creatinine levels 1.3-1.5. CMP ordered for 2 weeks out. For now in the inpatient setting will add sliding scale insulin and monitor blood sugars. If remains stable anticipate discharge home tomorrow with outpatient follow-up as described. PDMP PDMP Reviewed: Not Reviewed Attestations 2 Medical Necessity Statement*: Requires ongoing inpatient stay to monitor with resumption of antihypertensive therapy and potential need for additional diuresis given embolic burden and associated pulmonary hypertension in the setting of advanced age and comorbid conditions. Still with limited exertional capacity. Additionally has elevated hemoglobin A1c indicating new diagnosis of diabetes mellitus. Coding Level of Care Code 29487 Diagnoses Bilateral pulmonary embolism I26.99 Dizziness R42 Primary hypertension I10 Hypertension type: primary hypertension Diabetes mellitus type II, non insulin dependent E11.9 CAD (coronary artery disease) I25.10 Dyslipidemia E78.5 TIA (transient ischemic attack) G45.9 CVA (cerebral vascular accident) I63.9
[2024-06-02] MEDS: losartan 50 mg Tablet 25 MG PO (09:53)
[2024-06-02 11:34] LABS: Glucose Point of Care 138 mg/dL (70-110)
--- NOTE | 2024-06-02 12:42 | PC.SOCIAL ---
IMM Updated Updated pt on IMM. No questions voiced. Provided pt a copy. Initialed, dated, & timed copy in chart.
[2024-06-02 17:18] LABS: Glucose Point of Care 141 mg/dL (70-110)
[2024-06-02 20:15] LABS: Glucose Point of Care 211 mg/dL (70-110)
[2024-06-02] MEDS: insulin lispro 100 unit/1 mL SUBCUT (20:39)
[2024-06-02] MEDS: atorvastatin 40 mg Tablet PO (20:39)
[2024-06-03] VITALS (19 sets, daily range): BP systolic 107–139; BP diastolic 62–89; PULSE 58–79; RESP 12–22; TEMP 36.4–36.6; O2SAT 88–95
[2024-06-03 06:03] LABS: Glucose Point of Care 131 mg/dL (70-110)
[2024-06-03 06:15] LABS: Basophils # 0.1 10^3/uL (0.0-0.1); Basophils % 0.8 %; Eosinophils # 0.4 10^3/uL (0.0-0.8); Eosinophils % 5.4 %; Hematocrit 45.4 % (37-53); Lymphocytes # 1.7 10^3/uL (0.8-4.8); Lymphocytes % 23.4 %; Mean Corpuscular HGB Conc 33.3 g/dL (30-55); Mean Corpuscular Hemoglobin 32.1 pg (27-33); Mean Corpuscular Volume 96.6 fl (82-101); Mean Platelet Volume 9.9 fL (7.4-10.4); Monocytes # 0.7 10^3/uL (0.2-0.9); Monocytes % 10.2 %; Neutrophils # 4.31 10^3/uL (1.8-7.7); Neutrophils % 59.9 %; Nucleated Red Blood Cells % 0 %; Platelet Count 153 10^3/cmm (157-399); Red Cell Distribution Width 12.3 % (12.1-15.1); White Blood Count 7.19 10^3/uL (3.29-11.43)
[2024-06-03 06:32] LABS: Blood Urea Nitrogen 22 mg/dL (8-23); Calcium 8.5 mg/dL (8.5-10.5); Carbon Dioxide 26 mmol/L (22-29); Chloride 105 mmol/L (98-107); Creatinine Clr Calc Pharmacy 50.2044; Glucose 139 mg/dL (65-115); Osmolality Calculated 300 mOsm/kg (285-295); Sodium 142 mmol/L (136-145)
[2024-06-03] MEDS: aspirin 81 mg EC Tablet PO (08:18)
[2024-06-03] MEDS: pantoprazole DR 40 mg Tablet PO (08:18)
[2024-06-03] MEDS: levothyroxine 25 mcg Tablet PO (08:18)
[2024-06-03] MEDS: sertraline 100 mg Tablet PO (08:18)
[2024-06-03] MEDS: amlodipine 5 mg Tablet PO (08:18)
[2024-06-03] MEDS: apixaban 5 mg Tablet 10 MG PO (08:18)
[2024-06-03] MEDS: losartan 50 mg Tablet 25 MG PO (08:18)
[2024-06-03 11:45] LABS: Glucose Point of Care 146 mg/dL (70-110)
[2024-06-03] MEDS: insulin lispro 100 unit/1 mL SUBCUT (12:07)
--- NOTE | 2024-06-03 12:08 | PM.DCS ---
Discharge Providers Date of Admission: 05/29/24 05:04 Date of Discharge: June 03, 2024 Attending Provider at Admission: Brock Ro MD Attending Provider at Discharge: Prisca Whitfield MD Primary Care Provider: Augustina Lopez DO Diagnoses at Discharge Discharge Diagnosis (1) Bilateral pulmonary embolism: Status: Acute (2) Dizziness: Status: Acute (3) HTN (hypertension): Status: Chronic Qualifiers: Hypertension type: primary hypertension Qualified Code(s): I10 - Essential (primary) hypertension (4) Diabetes mellitus type II, non insulin dependent: Status: Acute (5) CAD (coronary artery disease): Status: Chronic (6) Dyslipidemia: Status: Chronic (7) TIA (transient ischemic attack): Status: Ruled-out (8) CVA (cerebral vascular accident): Status: Ruled-out Reason for Visit Reason for Visit: n/v Discharge Data Studies Completed and Pending Completed Studies During Hospitalization Category Date Time Status CT angio chest PE protcl [id number] Stat Cat Scan 05/29/24 07:00 Completed CTA head neck [CT angio headneck* [id number]/57101] Stat Cat Scan 05/29/24 05:19 Completed CXRP [XR chest 1V portable [id number]] Routine Exams 06/01/24 15:36 Completed XR chest 1V portable [id number] Stat Exams 05/29/24 00:41 [place] [id number] Routine Ultrasound 05/29/24 18:22 Completed CV. echo complete* [id number] Stat Ultrasound 05/29/24 05:03 Completed Radiology Impressions Head/Neck CTA 05/29/24 05:19 IMPRESSION: 1. Patent enhancing intracranial arteries without evidence of acute large vessel occlusion at this time. 2. 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 3. Diffuse atrophy and chronic/remote ischemic changes without evidence of superimposed acute infarct, hemorrhage or mass-effect at this time. IMPRESSION: 1. No evidence of significant carotid or extracranial vertebral artery vascular disease at this time. 2. Acute bilateral upper lobe PE right greater than left including thrombus within distal right main pulmonary artery and segmental right upper lobe pulmonary artery branches. REFERENCES: NASCET CRITERIA. The degree of stenosis in the cervical segment of the internal carotid artery is based on NASCET criteria. Normal is no stenosis. Mild is less than 50% stenosis. Moderate is 50-69% stenosis. Severe is 70% to 99% stenosis. Total occlusion is no detectable patent lumen. ADDENDUM: 05/29/24 0659 THIS REPORT CONTAINS FINDINGS THAT MAY BE CRITICAL TO PATIENT CARE. The findings were verbally communicated via telephone conference with Dr. Ro at 6:57 AM CDT on 05/29/2024. The findings were acknowledged and understood. Chest CTA 05/29/24 07:00 IMPRESSION: 1. Reidentified is pulmonary embolic disease as noted on the recent CT angiogram of the head and neck. 2. Moderate pulmonary embolic burden, greatest on the RIGHT involving the main pulmonary artery with extension into the lobar and segmental branches. No saddle embolism. 3. Small amount of embolic burden on the LEFT in the segmental branches. 4. No pneumonia. 5. No RIGHT heart strain. Chest X-Ray 06/01/24 15:36 IMPRESSION: Stable exam without evidence significant pulmonary vascular congestion. The cardiomediastinal silhouette is stable and mildly enlarged. No large pleural effusion. Laboratory Results WBC 7.19 10^3/uL (3.29-11.43) 06/03/24 06:04 RBC 4.70 10^6/uL (3.85-5.65) 06/03/24 06:04 Hgb 15.10 g/dL (11.27-16.99) 06/03/24 06:04 Hct 45.4 % (37-53) 06/03/24 06:04 MCV 96.6 fl (82-101) 06/03/24 06:04 MCH 32.1 pg (27-33) 06/03/24 06:04 MCHC 33.3 g/dL (30-55) 06/03/24 06:04 RDW 12.3 % (12.1-15.1) 06/03/24 06:04 Plt Count 153 10^3/cmm (157-399) L 06/03/24 06:04 MPV 9.9 fL (7.4-10.4) 06/03/24 06:04 Neut % (Auto) 59.9 % 06/03/24 06:04 Lymph % (Auto) 23.4 % 06/03/24 06:04 [place] % (Auto) 10.2 % 06/03/24 06:04 Eos % (Auto) 5.4 % 06/03/24 06:04 Baso % (Auto) 0.8 % 06/03/24 06:04 Neut # (Auto) 4.31 10^3/uL (1.8-7.7) 06/03/24 06:04 Lymph # (Auto) 1.7 10^3/uL (0.8-4.8) 06/03/24 06:04 [place] # (Auto) 0.7 10^3/uL (0.2-0.9) 06/03/24 06:04 Eos # (Auto) 0.4 10^3/uL (0.0-0.8) 06/03/24 06:04 Baso # (Auto) 0.1 10^3/uL (0.0-0.1) 06/03/24 06:04 Nucleated RBC % (auto) 0 % 06/03/24 06:04 Nucleated RBCs # 0.0 /100WBC 06/03/24 06:04 PT 15.40 SECONDS (12.1-14.9) H 05/29/24 14:08 INR 1.14 (0.8-1.2) 05/29/24 14:08 APTT 62.1 SECONDS (23.9-36.7) H D 05/31/24 09:52 Sodium 142 mmol/L (136-145) 06/03/24 06:04 Potassium 4.0 mmol/L (3.5-5.1) 06/03/24 06:04 Chloride 105 mmol/L (98-107) 06/03/24 06:04 Carbon Dioxide 26 mmol/L (22-29) 06/03/24 06:04 Anion Gap 15.0 (5-19) 06/03/24 06:04 BUN 22 mg/dL (8-23) 06/03/24 06:04 Creatinine 1.2 mg/dL (0.7-1.2) 06/03/24 06:04 GFR Calculation Not Reportable 06/03/24 06:04 Glucose 139 mg/dL (65-115) H 06/03/24 06:04 POC Glucose 146 mg/dL (70-110) H 06/03/24 11:41 Estimat Average Glucose 169 05/29/24 01:02 Hemoglobin A1c 7.5 % (4.0-6.0) H 05/29/24 01:02 Calculated Osmolality 300 mOsm/kg (285-295) H 06/03/24 06:04 Lactic Acid 2.7 mmol/L (0.5-2.2) H 05/29/24 01:02 Lactic Acid (Sepsis) 1.1 mmol/L (0.5-2.2) 05/29/24 08:11 Calcium 8.5 mg/dL (8.5-10.5) 06/03/24 06:04 Total Bilirubin 0.8 mg/dL (0.15-1.2) 06/02/24 03:51 AST 27 U/L (0-40) 06/02/24 03:51 ALT 17 U/L (0-41) 06/02/24 03:51 Alkaline Phosphatase 89 U/L (40-130) 06/02/24 03:51 Troponin T Baseline 12 ng/L (0-15) 05/29/24 01:02 Troponin T 120 Minute 17.58 ng/L (0-15) H 05/29/24 03:21 Delta Troponin T 5.58 ABS# (0-10) 05/29/24 03:21 Troponin T Hi Sens 6Hr 18.82 ng/L (0-15) H 05/29/24 06:56 Troponin T Hi Sens 6Hr Delta 6.82 ng/L (0-12) 05/29/24 06:56 NT-Pro-B Natriuret Pep 246 pg/mL (0-450) 05/29/24 03:21 Total Protein 6.5 g/dL (6.6-8.7) L 06/02/24 03:51 Albumin 4.0 g/dL (3.5-5.2) 06/02/24 03:51 Globulin 2.5 g/dL (1.3-4.6) 06/02/24 03:51 Triglycerides 124 mg/dL (0-150) 05/29/24 03:21 Cholesterol 99 mg/dL (0-200) 05/29/24 03:21 LDL Cholesterol, Calc 29 mg/dL (50-129) L 05/29/24 03:21 HDL Cholesterol 45 mg/dL (60-100) L 05/29/24 03:21 LDL/HDL Ratio 0.64 RATIO (0.00-3.22) 05/29/24 03:21 Cholesterol/HDL Ratio 2.20 mg/dL (1.0-5.00) 05/29/24 03:21 Lipase 22 U/L (13-60) 05/29/24 01:02 TSH 3.16 uIU/mL (0.27-4.20) 05/29/24 03:21 Urine Color Yellow (Yellow) 05/29/24 07:26 Urine Appearance Clear (CLEAR) 05/29/24 07:26 Urine pH 7.0 (5-7) 05/29/24 07:26 Ur Specific [facility] [place] 1.024 (1.005-1.030) 05/29/24 07:26 Urine Protein Negative (Negative) 05/29/24 07:26 Urine Glucose (UA) Trace (Normal) H 05/29/24 07:26 Urine Ketones Negative (Negative) 05/29/24 07:26 Urine Blood Non-haemolysed trace (Negative) 05/29/24 07:26 Urine Nitrate Negative (Negative) 05/29/24 07:26 Urine Bilirubin Negative (Negative) 05/29/24 07:26 Urine Urobilinogen 0.2 mg/dL (Negative) 05/29/24 07:26 Ur Leukocyte Esterase Negative (Negative) 05/29/24 07:26 Urine RBC 0-2 /hpf (0-2) 05/29/24 07:26 Urine WBC 0-5 /hpf (0-5) 05/29/24 07:26 Ur Squamous Epith Cells 0-5 /hpf (0-5) 05/29/24 07:26 Amorphous Sediment Not Reportable 05/29/24 07:26 Urine Bacteria None seen /hpf (NONE) 05/29/24 07:26 Hyaline Casts 1.21 /lpf 05/29/24 07:26 Influenza A (PCR) Negative (Negative) 06/01/24 17:52 Influenza Type B (PCR) Negative (Negative) 06/01/24 17:52 RSV (PCR) Negative (Negative) 06/01/24 17:52 SARS-CoV-2 (PCR) Negative (Negative) 06/01/24 17:52 Vitals Last Vital Signs Temp 97.8 F 06/03/24 11:45 Pulse 72 06/03/24 11:45 Resp 19 H 06/03/24 11:45 BP 107/71 06/03/24 11:45 Pulse Ox 94 06/03/24 11:45 O2 Del Method Room Air 06/03/24 11:45 O2 Flow Rate 3 06/02/24 16:00 Discharge Plan Discharge Patient Disposition: Home Condition: Stable Prescriptions: New (DME) blood-glucose meter [Blood Glucose Monitoring] Kit See Rx Instructions .Route Qty: 1 0RF Rx Instructions: As directed apixaban 5 mg (74 tabs) tablets,dose pack See Rx Instructions .ROUTE .COMPLEX Qty: 74 0RF Rx Instructions: orally per package directions: Take 2 tablets twice per day for 7 days then take 1 tablet twice per day thereafter Continued [id number] Tablet 1 tab PO DAILY sertraline 100 mg tablet 100 mg PO DAILY amlodipine 5 mg tablet 5 mg PO DAILY Qty: 90 3RF losartan 50 mg tablet 25 mg PO DAILY loperamide 2 mg capsule 2 mg PO PRN PRN (Reason: loose stools) promethazine 25 mg tablet 25 mg PO PRN PRN (Reason: Nausea) levothyroxine 25 mcg Tablet 25 mcg PO DAILY cyanocobalamin (vitamin B-12) [Vitamin B-12] 250 mcg Tablet 250 mcg PO DAILY aspirin [Angus Low Dose Aspirin] 81 mg Tablet,Delayed Release (Dr/Ec) 81 mg PO DAILY nitroglycerin 0.4 mg tablet, sublingual See Rx Instructions .ROUTE .COMPLEX Rx Instructions: dissolve ONE TABLET UNDER TONGUE EVERY FIVE MINUTES NEEDED FOR CHEST PAIN] Discharge Orders: Discharge Order (Routine); Ordered 06/03/24 Ordered By: Prisca Whitfield Other Ambulatory Orders: DME: Oxygen (Order) Location: None Selected Ordered By: Randi Suarez Comprehensive Metabolic Panel (Routine) Timeframe: 2 Weeks Facility: [facility] - Location: Lab - Main Lab Ordered By: Randi Suarez Referrals: Augustina Lopez DO [Primary Care Provider] - 06/06/24 10:00 am (This appointment is scheduled with Marianela Biswas. Thank you! ) Discharge Diet: Advance as tolerated Discharge Activity: Increase activity as tolerated Patient Instructions: Apixaban (By mouth), Pulmonary Embolism (DC), Low Fat Diet (DC), Hypoglycemia in a Person with Diabetes (DC), Using Oxygen at Home (DC), Type 2 Diabetes in the Older Adult (DC), Diabetes and Nutrition (DC), How to Check your Blood Sugar (DC), Opioid Safety Coding Level of Care Code Acute Code for Chg Fwd Diagnoses Bilateral pulmonary embolism I26.99 Dizziness R42 Primary hypertension I10 Hypertension type: primary hypertension Diabetes mellitus type II, non insulin dependent E11.9 CAD (coronary artery disease) I25.10 Dyslipidemia E78.5 TIA (transient ischemic attack) G45.9 CVA (cerebral vascular accident) I63.9
--- NOTE | 2024-06-03 13:20 | PC.NURSE ---
Discharge Note Patient discharged to home via private vehicle accompanied by daughter. Discharge instructions reviewed with patient and/or sales representative printing. Mobile pharmacy medications and/or prescriptions provided. Belongings/home medications returned. Instructed patient on checking blood sugar before big meals which he states is only breakfast and dinner. Told him and his daughter to keep a log of blood sugars to take with him to his primary appointment. Educated patient on how to check blood sugar with a glucometer. Al questions answered.
== END 2024-06-03 13:24 | disposition home or self-care (01) | DRG 176 ==
LOC: ER 05:35 → ER IP 05:42 → ICU 12:34 → CSU 05-30 13:05
PROVIDERS: Hospitalist; Internal Medicine; Student in an Organized Health Care Education/Training Program; Admitting Provider Family Medicine; Emergency Provider Student in an Organized Health Care Education/Training Program; PCP Family Medicine; Visit Provider Internal Medicine
DX: I26.99 Other pulmonary embolism without acute cor pulmonale (principal); I25.10 Atherosclerotic heart disease of native coronary artery without angina pectoris; R42 Dizziness and giddiness; I10 Essential (primary) hypertension; E11.9 Type 2 diabetes mellitus without complications; E78.5 Hyperlipidemia, unspecified; I25.2 Old myocardial infarction; Z95.5 Presence of coronary angioplasty implant and graft; Z79.899 Other long term (current) drug therapy; Z79.890 Hormone replacement therapy; Z88.2 Allergy status to sulfonamides; Z88.5 Allergy status to narcotic agent
CPT/HCPCS: 36415; 36416; 70496; 70498; 71045; 71275; 80048; 80053; 80061; 81001; 82962; 83036; 83605; 83690; 83880; 84443; 84484; 85025; 85049; 85610; 85730; 87637; 92523; 92610; 93005; 93306; 93970; 94664; 94760; 96365; 96372; 96375; 96376; 97110; 97116; 97161; 97166; 97530; 99285; J1644; J1815; J1940; J2270; J2405; J2470; J7030; J9999